=== PATIENT | female | born 1955 | race Caucasian/White ===

== ENCOUNTER → 2016-05-30 | Outpatient (CLI) | payer BC, OTHER ==
[~2016-05-30] MED LIST: ASPI81TA85 PO; BIOTPOW20 PO; CO Q100C10 PO; HYDR25TAB PO; LISI10TA4 PO; MACR100C3 PO; MULT1TAB18 PO; OMEP40CA2 PO; OXYC-517 PO; TYLE650T35 PO
[2016-05-30 20:11] LABS: CALCIUM LEVEL 9.4 MG/DL (8.5-10.1); CREATININE FOR GFR 1.06 MG/DL (0.55-1.02); GLOMERULAR FILTRATION RATE 56.5 (>51); POTASSIUM SERUM 3.5 MEQ/L (3.5-5.1)
[2016-05-30 20:17] LABS: MEAN CORPUSCULAR HEMOGLOBIN 32.7 pg (27.0-33.0); MEAN CORPUSCULAR HGB CONC 34.8 g/dl (32.0-36.5); RED CELL DISTRIBUTION WIDTH 12.3 % (11.5-14.5); WHITE BLOOD COUNT 9.4 K/mm3 (4.0-10.0)
== END ==
LOC: M ADAMS 18:17
PROVIDERS: ATTEND Nurse Practitioner Women's Health
DX: C64.1 Malignant neoplasm of right kidney, except renal pelvis (principal)

== ENCOUNTER → 2016-06-17 | Outpatient (REF) | payer BC, OTHER | LOC: M SFHCADAM 08:54 | PROVIDERS: ATTEND Physician Assistant | DX: E78.4 Other hyperlipidemia (principal); M17.9 Osteoarthritis of knee, unspecified ==

== ENCOUNTER → 2016-07-28 | Outpatient (REF) | payer BC, OTHER | LOC: M SFHCWAGY 15:50 | PROVIDERS: ATTEND Nurse Practitioner Women's Health | DX: Z12.4 Encounter for screening for malignant neoplasm of cervix (principal) ==

== ENCOUNTER → 2016-07-28 | Outpatient (CLI) | payer BC, OTHER ==
--- NOTE | 2016-07-28 16:41 | REPMRS ---
Patient History The patient states she had a clinical breast exam in 07/2016. Patient is postmenopausal and has history of other cancer at age 60. Family history of prostate cancer in brother at age 50 or over. Digital Woman Screen Mammo: July 28, 2016 - Exam #: [id number] Bilateral CC and MLO view(s) were taken. Technologist: Sheba Armas, Technologist Prior study comparison: September 12, 2014, digital woman screen mammo performed at [facility]. December 13, 2012, digital woman screen mammo performed at [facility]. December 07, 2010, bilateral bilat screen digital mammo performed at [facility]. FINDINGS: There are scattered fibroglandular densities. There has been no change in the appearance of the mammogram from the prior studies. There is a mild amount of scattered fibroglandular density which is fairly symmetric. There is no interval development of dominant mass, architectural distortion, or clustered microcalcification suggestive of malignancy. ASSESSMENT: BI-RADS/ACR category 1 mammogram. Negative. Recommendation Routine screening mammogram in 1 year (for women over age 40). This mammogram was interpreted with the aid of an FDA-approved computer-aided dectection system. Electronically Signed By: Jonathan Santos MD 07/28/16 [id number]
== END ==
LOC: M WHC 15:20
PROVIDERS: ATTEND Nurse Practitioner Women's Health
DX: Z12.31 Encounter for screening mammogram for malignant neoplasm of breast (principal)

== ENCOUNTER → 2016-09-13 | Outpatient (REF) | payer BC ==
[~2016-09-13] MED LIST changes: -MACR100C3 PO; +MACR100C43 PO
[2016-09-13 20:14] LABS: CALCIUM LEVEL 9.7 MG/DL (8.8-10.2); CREATININE FOR GFR 1.21 MG/DL (0.55-1.02); GLOMERULAR FILTRATION RATE 48.3 (>45); POTASSIUM SERUM 3.7 MEQ/L (3.5-5.1)
[2016-09-13 20:20] LABS: MEAN CORPUSCULAR HEMOGLOBIN 33.1 pg (27.0-33.0); MEAN CORPUSCULAR HGB CONC 33.9 g/dl (32.0-36.5); MEAN CORPUSCULAR VOLUME 97.6 fl (80.0-96.0); RED CELL DISTRIBUTION WIDTH 12.4 % (11.5-14.5); WHITE BLOOD COUNT 10.5 K/mm3 (4.0-10.0)
== END ==
LOC: M LABDRWAD 08:56
PROVIDERS: ATTEND Urology
DX: Z90.5 Acquired absence of kidney (principal)

== ENCOUNTER → 2016-12-21 | Outpatient (CLI) | payer BC, OTHER ==
[2016-12-21 21:21] LABS: MEAN CORPUSCULAR HGB CONC 33.4 g/dl (32.0-36.5); MEAN CORPUSCULAR VOLUME 95.7 fl (80.0-96.0); RED CELL DISTRIBUTION WIDTH 12.7 % (11.5-14.5); WHITE BLOOD COUNT 10.1 10^3/uL (4.0-10.0)
[2016-12-21 21:23] LABS: CALCIUM LEVEL 9.5 MG/DL (8.8-10.2); CREATININE FOR GFR 1.35 MG/DL (0.55-1.02); GLOMERULAR FILTRATION RATE 42.6 (>45); POTASSIUM SERUM 4.1 MEQ/L (3.5-5.1)
--- NOTE | 2016-12-22 03:31 | REP ---
Clinical: Renal neoplasm. Technique: PA and lateral. Comparison: 01/12/2016. Findings: A diffuse fine nodular interstitial pattern is noted throughout the lung salinas and remains stable. Findings are nonspecific and may reflect sequelae of prior granulomas disease as well as malignancy. No focal consolidation, effusion, or pneumothorax. Mediastinum and cardiac silhouette are within normal limits and stable. Skeletal structures demonstrate age-related changes to the thoracic spine and shoulders. Impression: 1. Stable diffuse fine nodular pattern throughout the lung salinas may reflect prior granulomas disease or sequelae of prior malignancy. 2. No obvious acute cardiopulmonary process. Signed by Manny Batista MD 12/22/2016 03:23 A
== END ==
LOC: M ADAMS 17:32
PROVIDERS: ATTEND Urology
DX: Z90.5 Acquired absence of kidney (principal); C64.1 Malignant neoplasm of right kidney, except renal pelvis

== ENCOUNTER → 2016-12-23 | Outpatient (CLI) | payer BC, OTHER ==
[~2016-12-23] MED LIST changes: +ISOVUE-370 76% 100ML VIAL (Q9967) As Ordered ONE
--- NOTE | 2016-12-25 10:41 | REP ---
CT of the abdomen pelvis multiphase imaging without and with IV contrast. There is no bowel contrast. Comparison is 12/30/2015. The comparison study. The patient had a large right renal mass. There has been interim right nephrectomy. The visualized lower lung salinas are unremarkable. The hepatic parenchyma is homogeneous on all phases. The gallbladder, pancreas and spleen are normal size, homogeneous and unremarkable. There is 3.5 cm right adrenal mass demonstrating enhancement after IV contrast, not present previously, compatible with adrenal metastasis. There is no evidence of tumor recurrence in the right renal fossa otherwise. The left adrenal left kidney are unremarkable. The abdominal aorta is unremarkable except for calcified atheroma. There is no retroperitoneal adenopathy. The bowel and mesentery are unremarkable. There is no ascites. Pelvis: There is no ascites or adenopathy. The uterus, adnexa and urinary bladder are unremarkable. The pelvic bowel loops are unremarkable. There are no lytic, blastic or destructive skeletal changes. There is bilateral L5 spondylolysis with grade 1 spondylolisthesis. There is multilevel degenerative disc disease in the lumbar spine. Impression: There is a new right adrenal mass measuring 3.5 cm greatest diameter demonstrating enhancement with IV contrast, compatible with right adrenal metastasis. There is no other evidence of tumor recurrence in the right renal fossa. Otherwise, essentially negative CT of the abdomen and pelvis. Signed by Joseph Haas MD 12/25/2016 10:33 A
== END ==
LOC: M RAD 16:55
PROVIDERS: ATTEND Urology
DX: E27.8 Other specified disorders of adrenal gland (principal); C64.1 Malignant neoplasm of right kidney, except renal pelvis; Z90.5 Acquired absence of kidney
CPT/HCPCS: 74178; Q9967

== ENCOUNTER → 2016-12-30 | Outpatient (CLI) | payer BC, OTHER ==
[~2016-12-30] MED LIST changes: -ISOVUE-370 76% 100ML VIAL (Q9967) As Ordered ONE; +PRAV10TA4 PO; +VITA100067 PO
[2016-12-30 09:34] LABS: ALBUMIN/GLOBULIN RATIO 1.05 (1.00-1.93); BILIRUBIN,TOTAL 0.4 MG/DL (0.2-1.0); CALCIUM LEVEL 9.9 MG/DL (8.8-10.2); CREATININE FOR GFR 1.09 MG/DL (0.55-1.02); FREE T4 1.18 NG/DL (0.76-1.46); GLOMERULAR FILTRATION RATE 54.5 (>45); POTASSIUM SERUM 4.1 MEQ/L (3.5-5.1); TOTAL PROTEIN 7.8 GM/DL (6.4-8.2)
== END ==
LOC: M WUC 08:06
PROVIDERS: ATTEND Physician Assistant
DX: I10 Essential (primary) hypertension (principal); E78.4 Other hyperlipidemia

== ENCOUNTER → 2017-01-12 | Outpatient (CLI) | payer BC, OTHER ==
[2017-01-12 10:40] LABS: MEAN CORPUSCULAR HEMOGLOBIN 32.1 pg (27.0-33.0); MEAN CORPUSCULAR HGB CONC 33.5 g/dl (32.0-36.5); MEAN CORPUSCULAR VOLUME 95.9 fl (80.0-96.0); PLATELET COUNT, AUTOMATED 314 10^3/uL (150-450); RED CELL DISTRIBUTION WIDTH 12.6 % (11.5-14.5); WHITE BLOOD COUNT 7.8 10^3/uL (4.0-10.0)
[2017-01-12 10:51] LABS: INR 1.02
[2017-01-12 11:15] LABS: CALCIUM LEVEL 10.3 MG/DL (8.8-10.2); CREATININE FOR GFR 1.15 MG/DL (0.55-1.02); GLOMERULAR FILTRATION RATE 51.2 (>45); POTASSIUM SERUM 4.2 MEQ/L (3.5-5.1)
== END ==
LOC: M WUC 08:05
PROVIDERS: ATTEND Nurse Practitioner Women's Health
DX: Z01.818 Encounter for other preprocedural examination (principal); E27.9 Disorder of adrenal gland, unspecified

== ENCOUNTER → 2017-01-16 | Outpatient (CLI) | payer BC, OTHER ==
--- NOTE | 2017-01-19 00:11 | ECGEPIP ---
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
== END ==
LOC: M EKG 16:24
PROVIDERS: ATTEND Nurse Practitioner Women's Health
DX: E27.9 Disorder of adrenal gland, unspecified (principal)

== ENCOUNTER → 2017-01-16 | Outpatient (CLI) | payer BC, OTHER ==
[~2017-01-16] MED LIST changes: +CIPR500T3 PO; +ISOVUE-370 76% 100ML VIAL (Q9967) As Ordered ONE; +MELA5TAB20 PO
--- NOTE | 2017-01-16 19:33 | REP ---
CT CHEST WITH CONTRAST: 01/16/2017. 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 Please evaluate lung salinas. Nodules seen on chest x-ray. Comparison: CT abdomen with lung base included 12/23/2016, 12/30/2015, chest x-ray 12/21/2016. Findings: The patient received 75 ml as Isovue 370 scanning through the chest with coronal and sagittal reconstructions. The axial images and coronal thick slab MIP reformatting in bone window settings show innumerable tiny nodules, many of them calcified others not and consistent mostly with granulomatous disease. I would note that on the prior two CTs in December 2015 as well as the prior abdominal CT last month. There were multiple tiny calcified granulomas scattered in both lower lung zones that are included in the field of view. Almost all of the small nodules are calcified. There are a few tiny nodules that are not. There is an 8 mm plaque-like nodule in the mid axillary line, left lower lobe lateral basal segment on image 87 which is noncalcified and is unchanged since the prior CT abdomen in 2015. Some minor dependent atelectatic changes along the posterior medial aspect of the mid and lower lung zones. I do not see any other significant lung findings. No effusion, calcified pleural plaque or pleural-based mass or pneumothorax. Heart is not enlarged and no pericardial thickening or effusion. There is no pathologic sized mediastinal or hilar adenopathy. Calcifications aortic arch and descending aorta but no aneurysm or dissection. Esophagus grossly unremarkable. The main right and left pulmonary arteries and the mediastinum are without filling defects. Bone windows show the sternum, manubrium, clavicles and visualized portion of the humeral heads intact. AC joints are narrowed bilaterally. The scapulae and ribs are without fracture or destructive lesion. Spine shows no compression fracture or destructive lesion, its posterior elements and rib articulations intact. The upper abdomen shows the right adrenal mass of 3.5 centimeters with low-density central zone and enhancing periphery in the upper pole of the left kidney visualized portions of liver and pancreas are unremarkable. The gallbladder showed no calcified stone or mass and the spleen was intact. Bowel loops intact. Impression: 1. 1. There is an 8 millimeter plaque-like nodule along the pleural surface lateral basal segment left lower lobe in the mid axillary line, this is uncalcified and unchanged from prior CT abdomen 1 year ago showing the lung bases. 2. Innumerable calcified tiny nodules scattered throughout the lungs consistent with old granulomatous disease. There are very few there are noncalcified. Given the preponderance of findings granulomatous disease is noted. 3. 3.5 cm right adrenal metastatic lesion, new since the right nephrectomy last year and the normal appearance of the right adrenal gland at the time of presentation per renal cell carcinoma in December 24, 2015. 4. No mediastinal or hilar mass or other acute finding. Signed by Yvon Dennis MD 01/16/2017 08:04 P
== END ==
LOC: M RAD 17:00
PROVIDERS: ATTEND Urology
DX: R91.8 Other nonspecific abnormal finding of lung field (principal); C64.9 Malignant neoplasm of unspecified kidney, except renal pelvis; C79.70 Secondary malignant neoplasm of unspecified adrenal gland
CPT/HCPCS: 71260; Q9967

== ENCOUNTER → 2017-01-17 | Outpatient (CLI) | payer BC, OTHER ==
[~2017-01-17] MED LIST changes: -CIPR500T3 PO; -ISOVUE-370 76% 100ML VIAL (Q9967) As Ordered ONE; -MELA5TAB20 PO
== END ==
LOC: M SMT 09:15
PROVIDERS: ATTEND Urology
DX: E27.9 Disorder of adrenal gland, unspecified (principal)

== ENCOUNTER 2017-01-31 06:40 | Inpatient (IN) | payer BC, OTHER ==
[~2017-01-31] VITALS: Ht 167.6 cm; Wt 83.5 kg
[2017-01-31] MEDS ORDERED: LIDOCAINE 1% MDV 20ML VIAL SQ PRN (07:00)
[2017-01-31] MEDS ORDERED: LR 1,000 ML IV ONE (07:00)
[2017-01-31] MEDS ORDERED: EMLA CREAM 5GM (LIDOCAINE/PRILOCAINE) As Ordered ONE (07:16)
[2017-01-31] MEDS ORDERED: MELA5TAB20 PO (07:30)
[2017-01-31] MEDS ORDERED: METOCLOPRAMIDE INJ 10MG/2ML VIAL (J2765) As Ordered ONE (08:00)
[2017-01-31] MEDS ORDERED: ROCURONIUM BROMIDE 50 MG/5 ML VIAL As Ordered ONE ×2 (08:00→09:58)
[2017-01-31] MEDS ORDERED: PROPOFOL 200 MG/20 ML VIAL As Ordered ONE (08:00)
[2017-01-31] MEDS ORDERED: ONDANSETRON 4MG/2ML VIAL (J2405) As Ordered ONE (08:00)
[2017-01-31] MEDS ORDERED: LIDOCAINE 2% INJ 100 MG/5 ML SDV (FOR ANES.) As Ordered ONE (08:00)
[2017-01-31] MEDS ORDERED: fentaNYL 250 MCG/5 ML INJECTION (J3010) As Ordered ONE (08:01)
[2017-01-31] MEDS ORDERED: MIDAZOLAM INJ 2 MG/2 ML VIAL (J2250) As Ordered ONE (08:01)
[2017-01-31] MEDS ORDERED: PHENYLephrine HCL 500 MCG/5 ML (100MCG/ML) SYRINGE (J2370) As Ordered ONE (10:42)
[2017-01-31] MEDS ORDERED: SUGAMMADEX SODIUM 500 MG/5 ML VIAL (BRIDION) As Ordered ONE (12:08)
[2017-01-31] MEDS ORDERED: fentaNYL 100 MCG/2 ML INJECTION (J3010) As Ordered ONE (13:11)
[2017-01-31] MEDS ORDERED: ONDANSETRON 4MG/2ML VIAL (J2405) IV PRN ×2 (13:15→13:30)
[2017-01-31] MEDS ORDERED: MORPHINE 4 MG/ML 1ML SYRINGE IV PRN (13:15)
[2017-01-31] MEDS: fentaNYL 100 MCG/2 ML INJECTION (J3010) IV PRN ×4 (13:20→13:53)
[2017-01-31 13:23] LABS: MEAN CORPUSCULAR HEMOGLOBIN 32.1 pg (27.0-33.0); MEAN CORPUSCULAR HGB CONC 33.4 g/dl (32.0-36.5); MEAN CORPUSCULAR VOLUME 96.2 fl (80.0-96.0); PLATELET COUNT, AUTOMATED 267 10^3/uL (150-450); RED CELL DISTRIBUTION WIDTH 12.8 % (11.5-14.5); WHITE BLOOD COUNT 14.6 10^3/uL (4.0-10.0)
[2017-01-31] MEDS ORDERED: MORPHINE 10 MG/ML 1ML VIAL IV PRN (13:30)
[2017-01-31] MEDS ORDERED: LR 1,000 ML IV SCH (13:30)
[2017-01-31 13:45] LABS: CALCIUM LEVEL 9.1 MG/DL (8.8-10.2); CREATININE FOR GFR 1.18 MG/DL (0.55-1.02); GLOMERULAR FILTRATION RATE 49.7 (>45); POTASSIUM SERUM 3.9 MEQ/L (3.5-5.1)
[2017-01-31 15:00] VITALS: BP 141/91
[2017-01-31 15:30] VITALS: BP 112/63
[2017-01-31] MEDS: ACETAMINOPHEN 650MG ER TAB (TYLENOL ARTHRITIS) PO SCH ×2 (16:05→21:17)
[2017-01-31] MEDS: oxyCODONE 5MG TAB PO PRN ×2 (16:06→23:15)
[2017-01-31] MEDS: KCL 20MEQ IN D5/0.45NS 1000ML 1,000 ML IV SCH ×2 (16:06→23:15)
[2017-01-31 16:30] VITALS: BP 143/60
[2017-01-31 17:30] VITALS: BP 135/72
[2017-01-31] MEDS: CIPROFLOXACIN 500 MG TAB PO SCH (18:23)
[2017-01-31 18:30] VITALS: BP 132/79
[2017-01-31 19:30] VITALS: BP 141/80
[2017-01-31] MEDS: PANTOPRAZOLE 40MG INJ (PROTONIX) (C9113) IV SCH (20:04)
[2017-01-31] MEDS: PRAVASTATIN 10 MG TAB PO SCH (20:05)
--- NOTE | 2017-01-31 21:57 | RO ---
DATE OF PROCEDURE: 01/31/2017 PREPROCEDURE DIAGNOSIS: Right adrenal neoplasm. POSTPROCEDURE DIAGNOSIS: Right adrenal neoplasm. PROCEDURE: Robotic-assisted right adrenalectomy. SURGEON: Dr. Karlo Hamlin BED MACHINE OPERATOR: Leann Ventura ANESTHESIA: General. COMPLICATIONS: None. ESTIMATED BLOOD LOSS: 100 mL. HISTORY OF THE PRESENT ILLNESS: A 61-year-old female patient with a history of a right renal cell carcinoma. She had an open right nephrectomy. At followup one year and a half, we found a right renal neoplasm which enhances. For this reason, she has consented for a right robotic-assisted adrenalectomy. She has consented for this procedure. We are doing the procedure today on 01/31/2017. DESCRIPTION OF PROCEDURE: In a patient in decubito lateral position with the right side up and the left side down, with the table flexed at the level of the waist and the patient secured with straps and a beanbag, we secured the points of pressures with foams. We placed an orogastric tube to drain the gastric content and a Goldsmith catheter #[id number]-[id number] with a 10 mL balloon to drain the bladder. We then proceeded to prep and drape the area of concern, which included the entire abdomen and right flank. We proceeded to actually do a transverse incision about 2 cm in length in the midclavicular line, supraumbilically for about 2 cm above the umbilicus. Through this incision, we opened the peritoneal cavity, introduced the 12 mm balloon trocar, inflated the balloon trocar to 40 mL, insufflated the abdomen with CO2 at a maximum pressure of 15 at high flow. We then proceeded to actually under direct vision place the other trocars. We placed a 5 mm VersaStep trocar in the epigastric area in the midline, and then we placed a 12 mm VersaStep on top of this since we needed a fine retractor for the liver. We then proceeded to place an 8 mm metallic trocar subcostally in the level of the midclavicular line and then in the right iliac fossa at the level of the midclavicular line, 10 cm away from the optic port, we placed another 8 mm metallic trocar. Between this one and the optic port in the midline, infraumbilically, we placed a 12 mm VersaStep, and we placed a third arm on the anterior axillary line, 2 cm away from the anterior iliac crest, along 8 mm metallic trocar. We then docked the robot on the left side, lower quadrant. Right lower quadrant of the abdomen, we placed a ProGrasp for the third arm, a monopolar scissors. On the right side, we placed bipolar PK. We started by dissecting all the adhesions attached to the omentum, attached to the anterior abdominal wall at the level of the subcostal incision. Once this was done, we dissected the line of Toldt and retracted the colon toward the midline. We then identified the duodenum and dissected away from the vena cava. We identified the vena cava and adrenal lesion. With a fine-shaped retractor, we retracted the liver from the posterior retroperitoneum and then we dissected the adrenal vein. There were two adrenal veins, were Hem-o-loked times two and cut in the middle. With the monopolar scissors, we dissected the adrenal. With bipolar PK, we secured the tiny arterials toward the adrenal. Once the adrenal was completely dissected, we placed it into a 10 mm Endo Catch bag. We secured hemostasis and placed Jocelyn. We then proceeded to actually take all the trocars out, the fine retractor also, deflate the abdomen and see if there were any bleeding vessels. There were no bleeding vessels. At that moment in time, we took out the instruments, to undock the robot, we took all the trocars out and extracted the specimen in the Endo Catch bag through the optic port incision. We then closed the optic port incision in two layers with #2-0 Vicryl in separate stitches times six in two layers, #0 Vicryl on UR-6 in separate layers, six stitches in the first layer, six stitches in the second layer. We then closed each incision site with #4-0 Monocryl subcuticulars. We then placed Mastisol, Steri-Strips, Telfa and Tegaderm on top of each incision. We did not leave a drain. PLAN: The patient will pass to recovery, then to the floor. Once she is tolerating a regular diet, she will be discharged home. There were no complications during surgery. The lesion was sent as a right adrenal neoplasm.
[2017-02-01] VITALS: BP 112/61
[2017-02-01] MEDS: CIPROFLOXACIN 500 MG TAB PO SCH ×2 (05:12→18:41)
[2017-02-01] MEDS: ACETAMINOPHEN 650MG ER TAB (TYLENOL ARTHRITIS) PO SCH ×3 (05:12→20:12)
[2017-02-01 06:00] VITALS: BP 121/68
[2017-02-01] MEDS: oxyCODONE 5MG TAB PO PRN ×3 (06:00→20:13)
[2017-02-01 07:09] LABS: ANION GAP 7 MEQ/L (8-16); BLOOD UREA NITROGEN 11 MG/DL (7-18); CALCIUM LEVEL 8.5 MG/DL (8.8-10.2); CARBON DIOXIDE LEVEL 27 MEQ/L (21-32); CHLORIDE LEVEL 105 MEQ/L (98-107); CREATININE FOR GFR 0.92 MG/DL (0.55-1.02); GLOMERULAR FILTRATION RATE > 60.0 (>45); GLUCOSE, FASTING 122 MG/DL (80-110); POTASSIUM SERUM 3.6 MEQ/L (3.5-5.1); SODIUM LEVEL 139 MEQ/L (136-145)
[2017-02-01 07:15] LABS: MEAN CORPUSCULAR HEMOGLOBIN 32.4 pg (27.0-33.0); MEAN CORPUSCULAR HGB CONC 33.8 g/dl (32.0-36.5); MEAN CORPUSCULAR VOLUME 95.9 fl (80.0-96.0); PLATELET COUNT, AUTOMATED 248 10^3/uL (150-450); RED CELL DISTRIBUTION WIDTH 12.7 % (11.5-14.5); WHITE BLOOD COUNT 9.9 10^3/uL (4.0-10.0)
[2017-02-01] MEDS: KCL 20MEQ IN D5/0.45NS 1000ML 1,000 ML IV SCH (08:46)
[2017-02-01] MEDS: LISINOPRIL 10 MG TAB PO SCH (08:46)
[2017-02-01] MEDS: hydroCHLOROthiazide 25 MG TAB PO SCH (08:46)
[2017-02-01 10:00] VITALS: BP_SYST 113; BP_SYST 126; BP_DIAS 57; BP_DIAS 85
[2017-02-01 14:00] VITALS: BP 106/63
[2017-02-01] MEDS: PANTOPRAZOLE 40MG INJ (PROTONIX) (C9113) IV SCH (20:12)
[2017-02-01] MEDS: PRAVASTATIN 10 MG TAB PO SCH (20:12)
[2017-02-01 22:00] VITALS: BP 128/64
[2017-02-02] MEDS: oxyCODONE 5MG TAB PO PRN ×2 (02:48→11:42)
[2017-02-02 06:00] VITALS: BP 126/77
[2017-02-02] MEDS: CIPROFLOXACIN 500 MG TAB PO SCH (06:19)
[2017-02-02] MEDS: ACETAMINOPHEN 650MG ER TAB (TYLENOL ARTHRITIS) PO SCH ×2 (06:19→14:50)
[2017-02-02 06:59] LABS: MEAN CORPUSCULAR HEMOGLOBIN 32.1 pg (27.0-33.0); MEAN CORPUSCULAR HGB CONC 33.3 g/dl (32.0-36.5); MEAN CORPUSCULAR VOLUME 96.4 fl (80.0-96.0); PLATELET COUNT, AUTOMATED 252 10^3/uL (150-450); RED CELL DISTRIBUTION WIDTH 12.5 % (11.5-14.5); WHITE BLOOD COUNT 11.4 10^3/uL (4.0-10.0)
[2017-02-02 07:18] LABS: CALCIUM LEVEL 8.8 MG/DL (8.8-10.2); CREATININE FOR GFR 1.01 MG/DL (0.55-1.02); GLOMERULAR FILTRATION RATE 59.5 (>45); POTASSIUM SERUM 3.7 MEQ/L (3.5-5.1)
[2017-02-02 08:51] VITALS: BP 126/77
[2017-02-02] MEDS: LISINOPRIL 10 MG TAB PO SCH (08:51)
[2017-02-02] MEDS: hydroCHLOROthiazide 25 MG TAB PO SCH (08:51)
[2017-02-02] MEDS ORDERED: CIPR500T3 PO (16:31)
[2017-02-02] MEDS ORDERED: TYLE650T35 PO (16:31)
--- NOTE | 2017-02-02 21:17 | DSES ---
DATE OF ADMISSION: 01/31/2017 DATE OF DISCHARGE: 02/02/2017 DATE OF SURGERY: 01/31/2017 ADMISSION DIAGNOSIS: Right adrenal neoplasm. DISCHARGE DIAGNOSIS: Right adrenal neoplasm. SURGERY PERFORMED: Robotic-assisted right adrenalectomy. SURGEON: Karlo Hamlin MD ADMITTING ATTENDING: Karlo Hamlin MD DISCHARGE ATTENDING: Karlo Hamlin MD COMPLICATIONS: None. HISTORY OF PRESENT ILLNESS: This is a 61-year-old female patient with a history of renal cell carcinoma of the right kidney. She had a robotic-assisted radical nephrectomy done one and half years ago. She had a CT scan that showed an adrenal neoplasm of about 3 cm in diameter. For this reason, she consented for a robotic-assisted right adrenalectomy. This procedure was carried out on 01/31/2017. After this procedure, she was admitted to the hospital. HOSPITALIZATION COURSE: The patient did very well and by postoperative day #1, she was putting out adequate amount of urine, clear, she was tolerating a regular diet and, for this reason, we discontinued the Goldsmith catheter. By postoperative day #2, she was tolerated a regular diet, ambulating very well, she was voiding very well without any problems, clear urine, her pain was controlled with by mouth medication. For this reason, she requested to go home and we agreed upon this. She will go home with ciprofloxacin 500 mg one tablet by mouth twice a day for 10 days, Tylenol 650 mg extended release one tablet by mouth every 8 hours as needed for pain. Increase water intake to 2 liters a day. Ambulate three times a day. No heavy weightlifting above [address] after 2 weeks. She will followup with [facility] in 2 weeks.
== END 2017-02-02 16:55 | disposition home or self-care (01) | DRG 401 ==
LOC: M OR 06:40 → M MS5PR 14:55
PROVIDERS: ADMIT Urology; ATTEND Urology
PROC: 8E0W4CZ Robotic Assisted Procedure of Trunk Region, Percutaneous Endoscopic Approach (ICD-10-PCS; 2017-01-31)
PROC: 0GB34ZZ Excision of Right Adrenal Gland, Percutaneous Endoscopic Approach (ICD-10-PCS; principal; 2017-01-31 08:30)
DX: C79.71 Secondary malignant neoplasm of right adrenal gland (principal); Q78.0 Osteogenesis imperfecta; I10 Essential (primary) hypertension; E78.4 Other hyperlipidemia; J30.2 Other seasonal allergic rhinitis; M17.11 Unilateral primary osteoarthritis, right knee; R91.1 Solitary pulmonary nodule; K21.9 Gastro-esophageal reflux disease without esophagitis; Z85.528 Personal history of other malignant neoplasm of kidney; Z87.891 Personal history of nicotine dependence; Z90.5 Acquired absence of kidney; Z88.2 Allergy status to sulfonamides; Z91.013 Allergy to seafood; Z79.899 Other long term (current) drug therapy

== ENCOUNTER → 2017-03-09 | Outpatient (REF) | payer BC, OTHER ==
[2017-03-09 19:09] LABS: HEMATOCRIT 44.9 % (36.0-47.0); MEAN CORPUSCULAR HEMOGLOBIN 31.7 pg (27.0-33.0); MEAN CORPUSCULAR HGB CONC 33.4 g/dl (32.0-36.5); MEAN CORPUSCULAR VOLUME 94.9 fl (80.0-96.0); PLATELET COUNT, AUTOMATED 323 10^3/uL (150-450); RED BLOOD COUNT 4.73 10^6/uL (4.00-5.40); RED CELL DISTRIBUTION WIDTH 12.7 % (11.5-14.5); WHITE BLOOD COUNT 10.5 10^3/uL (4.0-10.0)
[2017-03-09 19:28] LABS: APPEARANCE, URINE CLEAR (CLEAR); BACTERIA, URINE AUTO NEGATIVE (NEGATIVE); BILIRUBIN, URINE AUTO NEGATIVE (NEGATIVE); BLOOD, URINE BLOOD 2+ (NEGATIVE); COLOR, URINE YELLOW (YELLOW); GLUCOSE, URINE (UA) AUTO NEGATIVE (NEGATIVE); KETONE, URINE AUTO NEGATIVE (NEGATIVE); LEUKOCYTE ESTERASE, URINE AUTO NEGATIVE (NEGATIVE); NITRITE, URINE AUTO NEGATIVE (NEGATIVE); PROTEIN, URINE AUTO NEGATIVE (NEGATIVE); RBC, URINE AUTO 7 /HPF (0-3); SPECIFIC GRAVITY URINE AUTO 1.014 (1.002-1.035); SQUAMOUS EPITHELIAL CELL UR AU 0 /HPF (0-6); UROBILINOGEN, URINE AUTO 0.2 mg/dL (0.0-2.0); WBC, URINE AUTO 0 /HPF (0-3)
[2017-03-09 19:48] LABS: ANION GAP 8 MEQ/L (8-16); BLOOD UREA NITROGEN 29 MG/DL (7-18); CALCIUM LEVEL 10.2 MG/DL (8.8-10.2); CARBON DIOXIDE LEVEL 30 MEQ/L (21-32); CHLORIDE LEVEL 99 MEQ/L (98-107); CREATININE FOR GFR 1.29 MG/DL (0.55-1.02); GLOMERULAR FILTRATION RATE 44.9 (>45); GLUCOSE, FASTING 84 MG/DL (80-110); POTASSIUM SERUM 4.2 MEQ/L (3.5-5.1); SODIUM LEVEL 137 MEQ/L (136-145)
== END ==
LOC: M SFHCADAM 14:35
DX: C64.1 Malignant neoplasm of right kidney, except renal pelvis (principal)
CPT/HCPCS: 80048

== ENCOUNTER → 2017-05-12 | Outpatient (REF) | payer BC, OTHER ==
[2017-05-12 19:39] LABS: HEMATOCRIT 46.3 % (36.0-47.0); HEMOGLOBIN 15.5 g/dl (12.0-16.0); MEAN CORPUSCULAR HEMOGLOBIN 31.4 pg (27.0-33.0); MEAN CORPUSCULAR HGB CONC 33.5 g/dl (32.0-36.5); MEAN CORPUSCULAR VOLUME 93.7 fl (80.0-96.0); PLATELET COUNT, AUTOMATED 379 10^3/uL (150-450); RED BLOOD COUNT 4.94 10^6/uL (4.00-5.40); RED CELL DISTRIBUTION WIDTH 13.2 % (11.5-14.5); WHITE BLOOD COUNT 12.1 10^3/uL (4.0-10.0)
[2017-05-12 20:00] LABS: ALBUMIN 4.1 GM/DL (3.2-5.2); ALKALINE PHOSPHATASE 102 U/L (45-117); ALT/SGPT 21 U/L (12-78); ANION GAP 10 MEQ/L (8-16); AST/SGOT 12 U/L (7-37); BILIRUBIN,TOTAL 0.3 MG/DL (0.2-1.0); BLOOD UREA NITROGEN 27 MG/DL (7-18); CALCIUM LEVEL 9.8 MG/DL (8.8-10.2); CARBON DIOXIDE LEVEL 29 MEQ/L (21-32); CHLORIDE LEVEL 99 MEQ/L (98-107); CREATININE FOR GFR 1.56 MG/DL (0.55-1.30); GLUCOSE, FASTING 137 MG/DL (70-100); POTASSIUM SERUM 4.2 MEQ/L (3.5-5.1); SODIUM LEVEL 138 MEQ/L (136-145); TOTAL PROTEIN 8.2 GM/DL (6.4-8.2); URIC ACID 9.6 MG/DL (2.6-6.0)
== END ==
LOC: M SFHCADAM 15:04
DX: M10.471 Other secondary gout, right ankle and foot (principal); I12.9 Hypertensive chronic kidney disease with stage 1 through stage 4 chronic kidney disease, or unspecified chronic kidney disease; N18.3 Chronic kidney disease, stage 3 (moderate)
CPT/HCPCS: 84550

== ENCOUNTER → 2017-05-22 | Outpatient (REF) | payer BC, OTHER ==
[2017-05-22 20:04] LABS: BASO # 0.1 10^3/uL (0.0-0.2); BASO % 0.9 % (0.0-1.0); EOS # 0.3 10^3/uL (0.0-0.50); EOS % 2.8 % (0.0-3.0); HEMATOCRIT 46.3 % (36.0-47.0); HEMOGLOBIN 15.3 g/dl (12.0-16.0); IMMATURE GRANULOCYTE % 0.4 % (0-3.0); LYMPH # 2.5 10^3/uL (1.5-4.5); LYMPH % 24.6 % (24.0-44.0); MEAN CORPUSCULAR HEMOGLOBIN 31.5 pg (27.0-33.0); MEAN CORPUSCULAR VOLUME 95.3 fl (80.0-96.0); MONO # 1.1 10^3/uL (0.0-0.8); MONO % 10.9 % (0.0-5.0); NEUTROPHILS # 6.1 10^3/uL (1.8-7.7); NEUTROPHILS % 60.4 % (36.0-66.0); PLATELET COUNT, AUTOMATED 291 10^3/uL (150-450); RED BLOOD COUNT 4.86 10^6/uL (4.00-5.40); RED CELL DISTRIBUTION WIDTH 13.7 % (11.5-14.5); WHITE BLOOD COUNT 10.1 10^3/uL (4.0-10.0)
[2017-05-22 20:10] LABS: ALBUMIN 3.9 GM/DL (3.2-5.2); ALBUMIN/GLOBULIN RATIO 1.05 (1.00-1.93); ALKALINE PHOSPHATASE 91 U/L (45-117); ALT/SGPT 23 U/L (12-78); ANION GAP 9 MEQ/L (8-16); AST/SGOT 15 U/L (7-37); BILIRUBIN,TOTAL 0.3 MG/DL (0.2-1.0); BLOOD UREA NITROGEN 20 MG/DL (7-18); CARBON DIOXIDE LEVEL 28 MEQ/L (21-32); CHLORIDE LEVEL 103 MEQ/L (98-107); CREATININE FOR GFR 1.24 MG/DL (0.55-1.30); GLUCOSE, FASTING 90 MG/DL (70-100); POTASSIUM SERUM 4.1 MEQ/L (3.5-5.1); SODIUM LEVEL 140 MEQ/L (136-145); TOTAL PROTEIN 7.6 GM/DL (6.4-8.2)
== END ==
LOC: M SFHCADAM 17:21
DX: N18.3 Chronic kidney disease, stage 3 (moderate) (principal)
CPT/HCPCS: 80053

== ENCOUNTER → 2017-06-16 | Outpatient (CLI) | payer BC, OTHER ==
[~2017-06-16] MED LIST changes: -ASPI81TA85 PO; -BIOTPOW20 PO; -CO Q100C10 PO; -HYDR25TAB PO; +ISOVUE-370 76% 100ML VIAL (Q9967) As Ordered; -LISI10TA4 PO; -MACR100C43 PO; -MULT1TAB18 PO; -OMEP40CA2 PO; -OXYC-517 PO; -PRAV10TA4 PO; -TYLE650T35 PO; -VITA100067 PO
== END ==
LOC: M RAD 17:11
DX: D49.519 Neoplasm of unspecified behavior of unspecified kidney (principal); C79.71 Secondary malignant neoplasm of right adrenal gland; Z85.528 Personal history of other malignant neoplasm of kidney; Z90.5 Acquired absence of kidney
CPT/HCPCS: Q9967

== ENCOUNTER → 2017-08-07 | Outpatient (REF) | payer BC, OTHER ==
[2017-08-07 19:04] LABS: TOTAL PROTEIN,RANDOM URINE 7.1 MG/DL (0.0-12.0); URINE TOTAL PROTEIN 7.1 MG/DL (0-12)
[2017-08-07 19:10] LABS: TOTAL PROTEIN 7.4 GM/DL (6.4-8.2)
[2017-08-08 14:44] LABS: ALBUMIN 4.22 GM/DL (3.29-5.55); ALPHA-1-GLOBULIN % 4.1 % (2.9-4.9); ALPHA-2-GLOBULINS 0.79 GM/DL (0.42-0.99); ALPHA-2-GLOBULINS % 10.7 % (7.1-11.8); BETA-1-GLOBULINS 0.44 GM/DL (0.28-0.60); BETA-2-GLOBULINS 0.47 GM/DL (0.19-0.55); BETA-2-GLOBULINS % 6.4 % (3.2-6.5); GAMMA GLOBULIN % 15.8 % (11.1-18.8); GAMMA GLOBULINS 1.17 GM/DL (0.65-1.58)
[2017-08-10 00:06] LABS: FREE KAPPA LIGHT CHAINS SERUM 28.4 mg/L (3.3-19.4); FREE LAMBDA LIGHT CHAINS SERUM 25.4 mg/L (5.7-26.3); KAPPA/LAMBDA RATIO SERUM 1.12 (0.26-1.65)
[2017-08-10 13:42] LABS: URINE VOLUME RANDOM ML
[2017-08-10 13:43] LABS: UPEP INTERPRETATION NO M-SPIKE NOTED
== END ==
LOC: M LAB REF 17:07
DX: E83.52 Hypercalcemia (principal); Z85.528 Personal history of other malignant neoplasm of kidney
CPT/HCPCS: 84165

== ENCOUNTER → 2017-12-14 | Outpatient (REF) | payer BC, OTHER ==
[2017-12-14 20:19] LABS: HEMATOCRIT 43.8 % (36.0-47.0); HEMOGLOBIN 14.7 g/dl (12.0-15.5); MEAN CORPUSCULAR HGB CONC 33.6 g/dl (32.0-36.5); MEAN CORPUSCULAR VOLUME 95.2 fl (80.0-96.0); PLATELET COUNT, AUTOMATED 298 10^3/uL (150-450); RED CELL DISTRIBUTION WIDTH 12.4 % (11.5-14.5); WHITE BLOOD COUNT 7.8 10^3/uL (4.0-10.0)
[2017-12-14 20:22] LABS: APPEARANCE, URINE CLEAR (CLEAR); BACTERIA, URINE AUTO NEGATIVE (NEGATIVE); BILIRUBIN, URINE AUTO NEGATIVE (NEGATIVE); BLOOD, URINE BLOOD 1+ (NEGATIVE); COLOR, URINE YELLOW (YELLOW); GLUCOSE, URINE (UA) AUTO NEGATIVE (NEGATIVE); KETONE, URINE AUTO NEGATIVE (NEGATIVE); LEUKOCYTE ESTERASE, URINE AUTO NEGATIVE (NEGATIVE); MUCUS, URINE SMALL (NEGATIVE); NITRITE, URINE AUTO NEGATIVE (NEGATIVE); PROTEIN, URINE AUTO NEGATIVE (NEGATIVE); RBC, URINE AUTO 2 /HPF (0-3); SPECIFIC GRAVITY URINE AUTO 1.006 (1.002-1.035); SQUAMOUS EPITHELIAL CELL UR AU 0 /HPF (0-6); UROBILINOGEN, URINE AUTO 0.2 mg/dL (0.0-2.0); WBC, URINE AUTO 0 /HPF (0-3)
[2017-12-14 20:38] LABS: ANION GAP 11 MEQ/L (8-16); BLOOD UREA NITROGEN 19 MG/DL (7-18); CALCIUM LEVEL 9.6 MG/DL (8.8-10.2); CARBON DIOXIDE LEVEL 25 MEQ/L (21-32); CHLORIDE LEVEL 106 MEQ/L (98-107); CREATININE FOR GFR 1.33 MG/DL (0.55-1.30); GLOMERULAR FILTRATION RATE 43.2 (>45); GLUCOSE, FASTING 103 MG/DL (70-100); POTASSIUM SERUM 4.3 MEQ/L (3.5-5.1); SODIUM LEVEL 142 MEQ/L (136-145)
== END ==
LOC: M SFHCADAM 11:53
DX: Z85.528 Personal history of other malignant neoplasm of kidney (principal)
CPT/HCPCS: 80048

== ENCOUNTER → 2017-12-14 | Outpatient (CLI) | payer BC, OTHER | LOC: M ADAMS 11:55 | DX: Z85.828 Personal history of other malignant neoplasm of skin (principal); J84.10 Pulmonary fibrosis, unspecified | CPT/HCPCS: 71046 ==

== ENCOUNTER → 2017-12-20 | Outpatient (CLI) | payer BC, OTHER | LOC: M WHC 12:54 | DX: Z12.31 Encounter for screening mammogram for malignant neoplasm of breast (principal); Z78.0 Asymptomatic menopausal state; Z85.528 Personal history of other malignant neoplasm of kidney | CPT/HCPCS: 77067 ==

== ENCOUNTER → 2017-12-25 | Outpatient (CLI) | payer BC, OTHER | LOC: M RAD 09:20 | DX: Z85.528 Personal history of other malignant neoplasm of kidney (principal) | CPT/HCPCS: Q9967 ==

== ENCOUNTER → 2018-01-24 | Outpatient (REF) | payer BC, OTHER ==
[~2018-01-24] MED LIST changes: +ASPI81TA85 PO; +BIOTPOW20 PO; +CIPR500T3 PO; +CO Q100C10 PO; +HYDR25TAB PO; -ISOVUE-370 76% 100ML VIAL (Q9967) As Ordered; +LISI10TA4 PO; +MACR100C43 PO; +MELA5TAB20 PO; +MULT1TAB18 PO; +OMEP40CA2 PO; +OXYC-517 PO; +PRAV10TA4 PO; +TYLE650T35 PO; +VITA100067 PO
== END ==
LOC: M LAB REF 12:32
PROVIDERS: ATTEND Physician Assistant Medical
DX: N30.01 Acute cystitis with hematuria (principal)

== ENCOUNTER → 2018-02-06 | Outpatient (REF) | payer BC, OTHER ==
[2018-02-06 19:25] LABS: FREE T4 1.09 NG/DL (0.76-1.46); THYROID STIMULATING HORMONE 0.875 uIU/ML (0.358-3.740)
[2018-02-06 19:32] LABS: CORTISOL BASELINE 12.7 UG/DL (4.3-22.4)
== END ==
LOC: M LAB REF 18:06
DX: R53.83 Other fatigue (principal); E89.6 Postprocedural adrenocortical (-medullary) hypofunction
CPT/HCPCS: 84443

== ENCOUNTER → 2018-07-09 | Outpatient (REF) | payer OTHER ==
[2018-07-09 12:56] LABS: HEMATOCRIT 46.4 % (36.0-47.0); HEMOGLOBIN 15.5 g/dl (12.0-15.5); MEAN CORPUSCULAR HEMOGLOBIN 32.6 pg (27.0-33.0); MEAN CORPUSCULAR HGB CONC 33.4 g/dl (32.0-36.5); MEAN CORPUSCULAR VOLUME 97.7 fl (80.0-96.0); PLATELET COUNT, AUTOMATED 284 10^3/uL (150-450); RED BLOOD COUNT 4.75 10^6/uL (4.00-5.40); WHITE BLOOD COUNT 6.6 10^3/uL (4.0-10.0)
[2018-07-09 12:57] LABS: APPEARANCE, URINE CLEAR (CLEAR); BACTERIA, URINE AUTO NEGATIVE (NEGATIVE); BILIRUBIN, URINE AUTO NEGATIVE (NEGATIVE); BLOOD, URINE BLOOD NEGATIVE (NEGATIVE); COLOR, URINE YELLOW (YELLOW); GLUCOSE, URINE (UA) AUTO NEGATIVE (NEGATIVE); KETONE, URINE AUTO NEGATIVE (NEGATIVE); LEUKOCYTE ESTERASE, URINE AUTO NEGATIVE (NEGATIVE); MUCUS, URINE SMALL (NEGATIVE); NITRITE, URINE AUTO NEGATIVE (NEGATIVE); PROTEIN, URINE AUTO NEGATIVE (NEGATIVE); RBC, URINE AUTO 0 /HPF (0-3); SPECIFIC GRAVITY URINE AUTO 1.013 (1.002-1.035); SQUAMOUS EPITHELIAL CELL UR AU 0 /HPF (0-6); UROBILINOGEN, URINE AUTO 0.2 mg/dL (0.0-2.0); WBC, URINE AUTO 0 /HPF (0-3)
[2018-07-09 13:21] LABS: CALCIUM LEVEL 9.5 MG/DL (8.8-10.2); CHOLESTEROL RISK RATIO 5.578 (<5); CREATININE FOR GFR 1.07 MG/DL (0.55-1.30); FREE T4 1.04 NG/DL (0.76-1.46); GLOMERULAR FILTRATION RATE 55.3 (>45); POTASSIUM SERUM 4.6 MEQ/L (3.5-5.1); THYROID STIMULATING HORMONE 1.11 uIU/ML (0.358-3.740)
== END ==
LOC: M SFHCADAM 07:56
PROVIDERS: ATTEND Physician Assistant
DX: Z85.528 Personal history of other malignant neoplasm of kidney (principal); I12.9 Hypertensive chronic kidney disease with stage 1 through stage 4 chronic kidney disease, or unspecified chronic kidney disease; E78.49 Other hyperlipidemia; N18.3 Chronic kidney disease, stage 3 (moderate)

== ENCOUNTER → 2018-09-04 | Outpatient (CLI) | payer OTHER ==
[~2018-09-04] MED LIST changes: +GARL600T PO; +MULTCAP PO; +VITAD1000T PO
--- NOTE | 2018-09-04 11:30 | REP ---
Clinical: Preoperative assessment. Technique: PA and lateral. Comparison: 12/14/2017. Findings: Mediastinum and cardiac silhouette are within normal limits and stable. Innumerable calcified miliary nodules noted throughout the bilateral lung salinas suggesting prior granulomas disease versus changes related to metastatic disease. No focal acute consolidation, effusion, or pneumothorax. Skeletal structures intact. Impression: Chronic stable changes. No obvious acute cardiopulmonary process. Electronically Signed by Manny Batista MD 09/04/2018 11:21 A
[2018-09-04 13:25] LABS: HEMATOCRIT 45.5 % (36.0-47.0); HEMOGLOBIN 15.4 g/dl (12.0-15.5); MEAN CORPUSCULAR HEMOGLOBIN 32.8 pg (27.0-33.0); MEAN CORPUSCULAR HGB CONC 33.8 g/dl (32.0-36.5); MEAN CORPUSCULAR VOLUME 96.8 fl (80.0-96.0); PLATELET COUNT, AUTOMATED 287 10^3/uL (150-450)
[2018-09-04 13:39] LABS: INR 1.02; PROTHROMBIN TIME 13.1 SECONDS (11.8-14.0)
[2018-09-04 13:51] LABS: ERYTHROCYTE SEDIMENTATION RATE 22 mm/hr (0-30)
[2018-09-04 13:53] LABS: ALBUMIN 3.8 GM/DL (3.2-5.2); BILIRUBIN,TOTAL 0.4 MG/DL (0.2-1.0); CALCIUM LEVEL 9.2 MG/DL (8.8-10.2); CREATININE FOR GFR 1.06 MG/DL (0.55-1.30); GLOMERULAR FILTRATION RATE 55.9 (>45); POTASSIUM SERUM 4.3 MEQ/L (3.5-5.1); TOTAL PROTEIN 7.3 GM/DL (6.4-8.2)
== END ==
LOC: M ADAMS 09:45
PROVIDERS: ATTEND Orthopaedic Surgery
DX: Z01.818 Encounter for other preprocedural examination (principal); M17.11 Unilateral primary osteoarthritis, right knee; N28.9 Disorder of kidney and ureter, unspecified; I51.9 Heart disease, unspecified; R91.8 Other nonspecific abnormal finding of lung field

== ENCOUNTER 2018-09-27 11:13 | Inpatient (IN) | payer OTHER ==
--- NOTE | 2018-09-20 09:08 | HPE ---
DATE OF EXPECTED ADMISSION: PREOPERATIVE HISTORY AND PHYSICAL CHIEF COMPLAINT: Right knee pain. HISTORY OF PRESENT ILLNESS: Thais is a pleasant 63-year-old female with progressively worsening right knee pain and stiffness. She has failed to improve with conservative treatment. She has elected for surgery for her continued symptoms. She has pain with weightbearing activities and her activities of daily living. X-rays of her knee are notable for advanced osteoarthritis of the right knee joint. She has consented for a right total knee arthroplasty by Dr. Gordo Gaffney. Medical optimization was performed by Dr. Nassar's office. ALLERGIES: ZOCOR. CURRENT MEDICATIONS: Lisinopril 10 mg a day, pravastatin, Co Q 10, vitamin D and multivitamin. PAST MEDICAL HISTORY: Includes hypertension, kidney cancer and high cholesterol. PAST SURGICAL HISTORY: Includes kidney surgery in 2015 and for removal of cancer. SOCIAL HISTORY: This patient continues to work. Does not smoke. Occasionally drinks alcohol. FAMILY HISTORY: Is noncontributory. REVIEW OF SYSTEMS: This patient denies chest pain, heart palpitations, cough, wheezing, difficulty breathing and shortness of breath. She denies abdominal pain, nausea, vomiting, diarrhea or constipation. She denies recent upper respiratory infection or urinary tract infection symptoms. She does complain of persistent pain in her right knee. PHYSICAL EXAMINATION: General: She is well-nourished, well-developed in no acute distress, alert female patient. She walks with a moderate limp favoring her right lower extremity. She does not use assistive devices. Vital signs: She is 5 feet 5-1/2 inches tall, weighs 179 pounds with a temperature 97.4, pulse 62, respirations of 16, blood pressure 126/74. Neck was supple without adenopathy or jugular venous distension. Lungs were clear to auscultation without rales or wheeze throughout. Heart: Regular rate and rhythm. Abdomen: Bowel sounds were present. Extremities: Examination of the knee revealed intact skin. She had decreased range of motion due to pain and stiffness. The limb is neurovascularly intact. LABORATORY DATA: We are still pending her EKG she did have that done late last week. Chest x-ray showed no acute cardiopulmonary disease processes. Protime 13.1, INR 1.02. CBC showed an MCV of 96.8, otherwise within normal limits sed rate was 22, glucose 96, BUN 21, creatinine 1.06, and type and screen shows an O negative blood type. IMPRESSION: Symptomatic osteoarthritis of the right knee joint. PLAN: Consented for a right total knee arthroplasty by Dr. Gordo Gaffney.
[~2018-09-27] VITALS: Ht 167.6 cm; Wt 80.6 kg
[~2018-09-27 11:13] MED LIST changes: +LIDOCAINE 1% MDV 20ML VIAL SQ PRN; +LR 1,000 ML IV ONE
[2018-09-27 12:45] VITALS: BP 121/78
[2018-09-27 12:50] VITALS: BP 113/75
[2018-09-27] MEDS ORDERED: fentaNYL 100 MCG/2 ML INJECTION (J3010) As Ordered ONE ×2 (12:51→14:15)
[2018-09-27] MEDS ORDERED: MIDAZOLAM INJ 2 MG/2 ML VIAL (J2250) As Ordered ONE ×2 (12:52→14:15)
--- NOTE | 2018-09-27 13:37 | HPE ---
DATE OF ADMISSION: 09/27/2018 The patient seen and examined, and she wished to go ahead with a right knee arthroplasty. She understands the nature of this, the risks of bleeding, infection, damage to nerves, vessels, persistent pain, wear loosening, blood clots, medical problems, , among others. She understands this is likely to be a more complicated knee surgery due to her significant deformity. Preoperative clearance was obtained. We are planning on doing a right knee arthroplasty.
[2018-09-27] MEDS ORDERED: fentaNYL 100 MCG/2 ML INJECTION (J3010) IV ONE (13:45)
[2018-09-27] MEDS ORDERED: MIDAZOLAM INJ 2 MG/2 ML VIAL (J2250) IV ONE (13:45)
[2018-09-27] MEDS ORDERED: PROPOFOL 200 MG/20 ML VIAL As Ordered ONE (14:11)
[2018-09-27] MEDS ORDERED: LIDOCAINE 2% INJ 100 MG/5 ML SDV (FOR ANES.) As Ordered ONE (14:12)
[2018-09-27] MEDS ORDERED: ONDANSETRON 4MG/2ML VIAL (J2405) As Ordered ONE (14:13)
[2018-09-27] MEDS ORDERED: dexameTHASONE 4 MG/ML 1ML VIAL (J1100) As Ordered ONE (14:13)
[2018-09-27] MEDS ORDERED: HEPARIN SOD (PORCINE) 5000 UNITS/ML VIAL As Ordered ONE (14:18)
[2018-09-27] MEDS ORDERED: BUPIVACAINE/EPIN 0.5% 30 ML VIAL ONE (14:53)
[2018-09-27] MEDS ORDERED: dexameTHASONE 10 MG/1 ML VIAL PRES.FREE (J1100) ONE (14:53)
[2018-09-27] MEDS ORDERED: MORPHINE 2 MG/ML 1ML SYRINGE (J2270) IV PRN ×2 (16:30)
[2018-09-27] MEDS ORDERED: MORPHINE 10 MG/ML 1ML VIAL (J2270) IV PRN (16:30)
[2018-09-27] MEDS ORDERED: LR 1,000 ML IV SCH ×2 (16:30)
[2018-09-27] MEDS ORDERED: ONDANSETRON 4MG/2ML VIAL (J2405) IV PRN ×2 (16:30)
[2018-09-27] MEDS ORDERED: FLEET ENEMA PR PRN (16:30)
[2018-09-27] MEDS ORDERED: fentaNYL 100 MCG/2 ML INJECTION (J3010) IV PRN (16:30)
[2018-09-27] MEDS ORDERED: ACETAMINOPHEN TAB 650MG DOSE (2X325MG) PO PRN (16:30)
[2018-09-27] MEDS ORDERED: TRANEXAMIC ACID 100 MG/ML 10ML VIAL As Ordered ONE (16:58)
[2018-09-27] MEDS ORDERED: BUPIVACAINE LIPOSOME/PF 1.3% 20ML VIAL (13.3MG/ML)(EXPAREL)(C9290 PER1MG) As Ordered ONE (16:59)
[2018-09-27] MEDS ORDERED: ceFAZolin 1GM INJ (J0690 PER 500MG) As Ordered ONE (16:59)
[2018-09-27] MEDS ORDERED: EPINEPHrine INJ 1 MG/ML 1ML AMP As Ordered ONE (16:59)
--- NOTE | 2018-09-27 17:18 | REP ---
RIGHT KNEE, TWO VIEWS: AP and lateral views of the right knee are performed. There is placement of a total knee prosthesis. Metallic prostatic components are in good position. The structures are well aligned. Anterior skin luis are noted. Electronically Signed by Joseph Bills MD 09/27/2018 05:50 P
[2018-09-27] MEDS ORDERED: MORPHINE 4 MG/ML 1ML VIAL/SYRINGE (J2270) IV PRN ×2 (17:31→17:32)
[2018-09-27 18:36] VITALS: BP 122/64
[2018-09-27 20:11] VITALS: BP 118/67
[2018-09-27 21:11] VITALS: BP 122/66
[2018-09-27] MEDS: PERCOCET 5MG/325MG TAB PO PRN (21:16)
--- NOTE | 2018-09-28 00:51 | CR.PDOC ---
General Date of Consultation: Sep 27, 2018 Referring Provider: Gordo Gaffney Consultation REASON FOR CONSULTATION/CHIEF COMPLAINT: . HISTORY OF PRESENT ILLNESS: Thais is a pleasant 63-year-old female s/p right total knee arthroplasty 2/2 advanced osteoarthritis of the right knee joint. Patient is doing well, with no complaint. ALLERGIES: ZOCOR. CURRENT MEDICATIONS: Lisinopril 10 mg a day, pravastatin, Co Q 10, vitamin D and multivitamin. PAST MEDICAL HISTORY: Includes hypertension, kidney cancer and high cholesterol. PAST SURGICAL HISTORY: right adrenal gland and kidney removal 2/2 cancer 2015 and 17 respectively SOCIAL HISTORY: This patient continues to work. quit smoking 4 yrs ago, Occasionally drinks alcohol. FAMILY HISTORY: father -Dm2 and heart disease ROS - all 14 point review of system is negative except for whats listed in HPI Physical exam Gen: NAD, healthy appearing , HEENT: normocephalic, atraumatic, no discharge from ears or nose, no oropharyngeal erythema or exudate, neck is supple, no lymphadenopathy, trachea midline CVS: RRR, normal S1n S2, no murmur, rubs, or gallops, no edema, no jvd Resp: LCTAB, no rhonchi, wheezes or crackles Abd : soft nontender, normal bowel sounds, no rebound tenderness or guarding MSK: limited rom in right leg Neuro: AOAx3, no confusion, no focal deficit Psych: normal mood and affect, good judgment Assessment and Plan right knee arthroplasty prn pain meds, with anti-emetic and bowel regimen anticoagulation and abx per ortho rehab//pt consult htn -bp stable now , can resume bp meds if bp starts increasing hld -c/w home meds dvt ppx - on AC full code, from home, Vital Signs/I&O Vital Signs Date Time Temp Pulse Resp B/P (MAP) Pulse Ox O2 Delivery O2 Flow Rate FiO2 09/27/18 21:46 17 09/27/18 21:11 97.3 83 122/66 (84) 95 09/27/18 14:15 2 Allergies Coded Allergies: Clam (Verified Allergy, Intermediate, HIVES, 01/31/17) Nbmqeir-Gzo-Rxq Reductase Inhibitor (Verified Allergy, Unknown, 09/26/18) Sulfa (Sulfonamide Antibiotics) (Verified Allergy, Unknown, RASH, 09/26/18) niacin (Verified Allergy, Unknown, red flushin, 08/30/18) rosuvastatin (Verified Allergy, Unknown, 08/30/18) Home Medications Scheduled Acetaminophen (Tylenol Arthritis) 650 Mg Tab, 650 MG PO Q8H for ABDOMINAL PAIN for 10 Days, #30 Garlic Extract (Garlipure) 600 Mg Tablet, 600 MG PO DAILY, (Reported) Lisinopril (Lisinopril) 10 Mg Tab, 10 MG PO DAILY, (Reported) Multivitamin (Multivitamins) 1 Each Capsule, 1 CAP PO DAILY, (Reported) Pravastatin Sodium (Pravastatin Sodium) 10 Mg Tab, 10 MG PO DAILY, (Reported) Ubidecarenone/Vit E Acet (Co Q-10 100 mg Softgel) 100 Mg Cap, 100 MG PO DAILY, (Reported) Vitamin D (Vitamin D3) 1,000 Unit Tablet, 1,000 UNITS PO DAILY, (Reported) ELISHA TAPIA MD Sep 27, 2018 23:36
[2018-09-28 01:56] VITALS: BP 107/65
[2018-09-28] MEDS: PERCOCET 5MG/325MG TAB PO PRN ×3 (04:47→20:23)
[2018-09-28 06:07] VITALS: BP 107/66
[2018-09-28] MEDS ORDERED: XARE10TA PO (06:30)
[2018-09-28] MEDS ORDERED: PERC5TAB12 PO ×2 (06:30→06:33)
[2018-09-28 06:35] LABS: HEMATOCRIT 42.9 % (36.0-47.0); HEMOGLOBIN 14.2 g/dl (12.0-15.5); MEAN CORPUSCULAR HEMOGLOBIN 32.2 pg (27.0-33.0); MEAN CORPUSCULAR HGB CONC 33.1 g/dl (32.0-36.5); MEAN CORPUSCULAR VOLUME 97.3 fl (80.0-96.0); PLATELET COUNT, AUTOMATED 264 10^3/uL (150-450); RED BLOOD COUNT 4.41 10^6/uL (4.00-5.40); WHITE BLOOD COUNT 16.1 10^3/uL (4.0-10.0)
[2018-09-28] MEDS: MOM 30ML SUSPENSION UDC PO SCH (08:37)
[2018-09-28] MEDS ORDERED: CelecoXIB (CeleBREX) 100 MG CAP PO ONE (09:00)
[2018-09-28] MEDS ORDERED: MIRALAX *UNIT DOSE* 17GM PACKET PO SCH (09:00)
--- NOTE | 2018-09-28 09:26 | IPNPDOC ---
Subjective Date Seen The patient was seen on 09/28/18. Subjective Chief Complaint/HPI Pt this morning is feeling well. Pain is controlled. Denies CP, SOB, cough. General: Denies: Fatigue ENT: Denies: Head Aches Pulmonary: Denies: Dyspnea, Cough Cardiovascular: Denies: Chest Pain, Palpitations Gastrointestinal: Denies: Nausea, Vomiting, Diarrhea Neurological: Denies: Weakness Psych: Reports: Mood Normal Objective Physical Examination General Exam: Positive: Alert, Cooperative, No Acute Distress ENT Exam: Positive: Mucous membr. moist/pink Chest Exam: Positive: Clear to auscultation, Normal air movement Heart Exam: Positive: Rate Normal, Normal S1, Normal S2 Abdomen Exam: Positive: Normal bowel sounds, Soft; Negative: Tenderness Extremity Exam: Negative: Edema Neuro Exam: Positive: Normal Speech Psych Exam: Positive: Mood NL Assessment /Plan Problems (1) Hypertension Status: Chronic Response to Treatment: Stable Problem Specific Plan: Monitor Clinically Problem Text: SBP 90-110, continue off HD lisin 10 (2) Status post total right knee replacement Status: Acute Response to Treatment: Stable Problem Specific Plan: Monitor Clinically Problem Text: Pain mgmt, anticoag, bowel care per Ortho. (3) Adrenal neoplasm Status: Chronic Problem Text: watch for s/s AI 01/2017 sp R adrenalectomy [address] Grajeda (4) CKD (chronic kidney disease) stage 3, GFR 30-59 ml/min Problem Text: baseline cr 1.1-1.2 sp R nephrectomy 01/2016 2 RCC Plan/VTE VTE Prophylaxis Ordered?: Yes VS, I&O, 24H, Fishbone Vital Signs/I&O Vital Signs Date Time Temp Pulse Resp B/P (MAP) Pulse Ox O2 Delivery O2 Flow Rate FiO2 09/28/18 06:07 95.6 75 18 107/66 (80) 94 09/27/18 14:15 2 I&O- Last 24 Hours up to 6 AM 09/28/18 06:00 Intake Total 3330 ml Output Total 1900 ml Balance 1430 ml Laboratory Data 24H LABS Laboratory Tests 2 09/28/18 05:48: Nucleated Red Blood Cells % (auto) 0.0 CBC/BMP Laboratory Tests 09/28/18 05:48 Red Blood Count 4.41, Mean Corpuscular Volume 97.3 H, Mean Corpuscular Hemoglobin 32.2, Mean Corpuscular Hemoglobin Concent 33.1, Red Cell Distribution Width 12.4 JOSE G PHAM PA-C Sep 28, 2018 09:26 Ede Johnson M.D. Sep 28, 2018 16:27
[2018-09-28 10:00] VITALS: BP 103/62
[2018-09-28 14:00] VITALS: BP 103/65
--- NOTE | 2018-09-28 14:25 | RO ---
DATE OF PROCEDURE: 09/27/2018 PREPROCEDURE DIAGNOSIS: Right knee osteoarthritis advanced with severe valgus deformity. POSTPROCEDURE DIAGNOSIS: Right knee osteoarthritis advanced with severe valgus deformity with deficient MCL ligament. PROCEDURE: Right total knee arthroplasty using a PFC rotating platform posterior stabilized size 2.5 femur, 3 tibial tray, 17.5 polyethylene and repair / reefing of medial collateral ligament distally. SURGEON: Gordo Gaffney MD OFFICE SPEC: MICHELLE Stanford ANESTHESIA: Spinal ESTIMATED BLOOD LOSS: Less than 50. COMPLICATIONS: None. INDICATIONS: This is a 66-year woman who has had severe valgus and severe lateral compartment arthritis with some ligamentous instability of her right knee for quite some time. She was unable to tolerate it any longer and wished to go ahead with surgical treatment. She understood the nature of this and the risks associated with it and understood this to be more complex surgery, which I ordered in the TC3 three equipment in case I needed that but at least anticipated doing a posterior stabilized and anticipated possibly having do something with the MCL. DESCRIPTION OF PROCEDURE: The patient was taken to the operating room and placed in supine position. After spinal anesthesia was induced, the right lower extremity was prepped and draped in the usual sterile fashion. Time-out was performed. Tourniquet was inflated. I then created longitudinal incision over the anterior aspect the knee. She did have a quite subluxed patella, but I tried to centralize the incision. Sharp dissection was carried down through subcutaneous tissue until the deep layer was noted. A medial parapatellar arthrotomy was performed in the usual fashion, and I everted the patella. I did an immediate lateral release, which was fairly extensive due to her significant lateral subluxation of the patella, which was secondary I think to her notable valgus alignment. I then was able to alli the patella more easily, flexed the knee up, removed some osteophytes and she did have fairly notable bone loss on the lateral femoral condyle and lateral tibial plateau. I then used a canal initiating reamer, followed by the intramedullary guide set at 7 valgus and 10 mm cut. This was pinned in place and the distal femoral cut was made protecting soft tissues. The femoral sizer was used and it was sized to be a 2.5. Drill holes were placed in the end of the femur with the external rotation guide and the cutting block was then secured to the femur. The remaining four cuts were made in the usual fashion. The tibial guide was placed in the appropriate amount of valgus and posterior slope, protected the posterior and medial lateral tissues. I ended up removing approximately 8 off the medial side, which was 4 off the lateral side using the tibial guide and sizing guide. Drill holes were placed. The cut was made proximally removing the bone and was relatively thicker cut medially than we are used to with a varus knee because of her notable valgus. I then protect the tibial surface, placed the box cutting guide, the three cuts were made in the end of the femur, removing this bone and the remnant of the PCL. I then used a assisted living administrator and removed soft tissue and osteophytes from either side of the knee. There were some large osteophytes along the posterolateral aspect. Soft tissue balance was noted to be deficient medially at this point. I then prepared the tibial surface, sized it to be a 3, pinned this in place, drilled it and broached it. Also had done prior to this used the spacer blocks and felt that a 17.5 was going to be our best choice. A 15 was too loose, but again it was noted that the MCL was somewhat deficient and almost had been detached to some degree distally. I had taken care when I exposed this not to do any medial release, basically just to expose the proximal medial tibial plateau but not released the MCL. Once the trial components were placed with a 17.5, it was noted that the MCL was fairly deficient and she was somewhat unstable in valgus stress. She had good stability and varus stress both flexion, extension and this polyethylene thickness was appropriate. At this point, I elected to tighten and repair the MCL distally were it appeared to be somewhat deficient. Placed a FiberWire number 2 through the ligament and several bites were obtained through the MCL. I then passed these through the bone entering into the medullary canal where I had previously drilled and broached and passed both ends of the suture through this with the intention of wrapping it around the prosthetic stem. When I tightened the sutures and pulled on them, it brought the MCL down nicely and improved the soft tissue balance. We had freehand cut the patella, sized to be a 35. Drill holes were placed and the patella did track quite nicely after this lateral release. The trial components were removed. I irrigated copiously. The insurance claims assistant prepared the bone cement in the modern technique. I began by cementing in the tibial component, making sure the sutures one was anterior and one was posterior, impacted this down, removed excess bone cement and at this point tightened up the MCL by tying the suture and ended up with the knot just tibial post. I cemented on the femoral component, removed excess bone cement, placed the actual polyethylene and brought the knee out in extension. All excess bone cement was removed. We cemented on the patella, held it in place with a clamp. The bony surfaces had been carefully dried. I then placed the Exparel in deep tissues, the TXA in the deep wound. The overall tissue balance was really very good. There was minimal instability in valgus testing at this point, which was a significant improvement prior to repair of the MCL. Final irrigation was performed to the deep tissues. I then repaired the deep layer with #1 Vicryl suture after the cement had hardened and running Stratafix suture. Watertight closure was noted. I then irrigated, closed the subcutaneous with 2-0 Vicryl and the skin with luis. Sterile dressing was applied. Tourniquet had been deflated once the cement hardened. She was taken to the recovery room in stable condition. There were no known complications. The insurance claims assistant was instrumental in holding retractors and assisting in making one of the bone cuts and assisting in mixing the bone cement and assisting in wound closure. This was coded as an unusually difficult total knee due to her fairly profound valgus alignment and deficiency of the MCL. She also had quite poor bone quality medially and fairly dense bone quality laterally. I did have to do a fairly extensive lateral release in order to allow for patellar tracking in this valgus knee. Had to use the PFC system to allow for the TC3 back up to be available. In addition, the MCL had to be tightened and repaired distally to allow for appropriate stability. Overall, this was a complex primary total knee. The plan will be that we will get her a hinged Maite tight brace with the hinges from 0 to 90 degrees and allow her to bear weight with that on, and I think she can take the brace off while in bed but just needs to put it on while she is bearing weight, which will hopefully help support this medial repair, which was quite solid. Otherwise, routine postop.
[2018-09-28 17:12] LABS: ALBUMIN 3.3 GM/DL (3.2-5.2); BILIRUBIN,TOTAL 0.1 MG/DL (0.2-1.0); CALCIUM LEVEL 9.7 MG/DL (8.8-10.2); CREATININE FOR GFR 1.22 MG/DL (0.55-1.30); GLOMERULAR FILTRATION RATE 47.5 (>45); POTASSIUM SERUM 3.9 MEQ/L (3.5-5.1); TOTAL PROTEIN 6.8 GM/DL (6.4-8.2)
[2018-09-28] MEDS ORDERED: ALLOPURINOL 100 MG TAB PO ONE (17:15)
[2018-09-28] MEDS ORDERED: RIVAROXABAN 10 MG TAB (XARELTO) PO SCH (18:00)
[2018-09-28 22:00] VITALS: BP 103/64
[2018-09-29] MEDS: PERCOCET 5MG/325MG TAB PO PRN ×2 (03:25→08:26)
[2018-09-29 06:00] VITALS: BP 105/66
[2018-09-29 06:19] LABS: BASO % 0.2 % (0.0-1.0); EOS # 0.1 10^3/uL (0.0-0.50); EOS % 0.4 % (0.0-3.0); HEMOGLOBIN 12.8 g/dl (12.0-15.5); LYMPH # 2.2 10^3/uL (1.5-4.5); LYMPH % 13.9 % (24.0-44.0); MEAN CORPUSCULAR HEMOGLOBIN 32.7 pg (27.0-33.0); MEAN CORPUSCULAR HGB CONC 32.8 g/dl (32.0-36.5); MEAN CORPUSCULAR VOLUME 99.5 fl (80.0-96.0); MONO # 1.5 10^3/uL (0.0-0.8); MONO % 9.3 % (0.0-5.0); NEUTROPHILS # 11.9 10^3/uL (1.8-7.7); NEUTROPHILS % 75.8 % (36.0-66.0); PLATELET COUNT, AUTOMATED 249 10^3/uL (150-450); RED BLOOD COUNT 3.92 10^6/uL (4.00-5.40); WHITE BLOOD COUNT 15.7 10^3/uL (4.0-10.0)
[2018-09-29 06:51] LABS: ALBUMIN 3.1 GM/DL (3.2-5.2); BILIRUBIN,TOTAL 0.3 MG/DL (0.2-1.0); CALCIUM LEVEL 8.8 MG/DL (8.8-10.2); CREATININE FOR GFR 1.06 MG/DL (0.55-1.30); GLOMERULAR FILTRATION RATE 55.9 (>45); POTASSIUM SERUM 4.4 MEQ/L (3.5-5.1); TOTAL PROTEIN 6.3 GM/DL (6.4-8.2)
[2018-09-29] MEDS: MOM 30ML SUSPENSION UDC PO SCH (08:26)
--- NOTE | 2018-09-29 08:58 | IPN ---
DATE: 09/29/2018 Postop day #2 right total knee arthroplasty. HISTORY OF PRESENT ILLNESS: This 63-year-old female underwent a right total knee arthroplasty by Dr. Gaffney. This was 2 days ago. She was placed into a brace afterwards as she had a severe valgus deformity with deficient medial collateral ligament (MCL). She is out of the brace when she is in bed but definitely in the brace when she up and around 0 to 90 degrees. She is doing well with plans for discharge home today. No concerns from her or the nursing staff. PHYSICAL EXAM: Reveals a well-appearing 63-year-old female in no acute distress. Sitting up comfortably. She has a number of questions that we answered. Vital signs are stable. Temperature 97.5. Blood pressure 105/66. Pulse rate 71. Respiratory rate 18, 96% on room air. In terms of the bandage on the knee, it appears clean and dry. There is a moderate amount of swelling. Minimal ecchymosis. She has normal sensation throughout both feet. Feet are warm and well perfused with good pedal pulses. She is able to wiggle the toes, dorsiflex and plantar flex the foot. Laboratory examination revealed a hemoglobin of 12.8 down from 14.2. ASSESSMENT/PLAN: Thais will be discharged home today, weightbearing as tolerated. It sounds like she has good supports. She will follow up in the office in 2 weeks time with one of the physician assistants (PAs) to discontinue her luis and check the wound. She is well aware of her limitations with the brace due to her MCL valgus deformity. She will be discharged home on Percocet for oral pain control as well as rivaroxaban 10 mg by mouth once daily for venous thromboembolism (VTE) prophylaxis.
== END 2018-09-29 11:40 | disposition home or self-care (01) | DRG 470 ==
LOC: M OR 11:13 → M MS5PR 17:25
PROVIDERS: ADMIT Orthopaedic Surgery; ATTEND Orthopaedic Surgery
PROC: 0SRC0J9 Replacement of Right Knee Joint with Synthetic Substitute, Cemented, Open Approach (ICD-10-PCS; principal; 2018-09-27 13:25)
DX: M17.11 Unilateral primary osteoarthritis, right knee (principal); Z87.891 Personal history of nicotine dependence; I12.9 Hypertensive chronic kidney disease with stage 1 through stage 4 chronic kidney disease, or unspecified chronic kidney disease; Z85.828 Personal history of other malignant neoplasm of skin; E78.00 Pure hypercholesterolemia, unspecified; Z79.899 Other long term (current) drug therapy; Z88.2 Allergy status to sulfonamides; Z88.8 Allergy status to other drugs, medicaments and biological substances; Z91.013 Allergy to seafood; N18.3 Chronic kidney disease, stage 3 (moderate)

== ENCOUNTER → 2019-01-16 | Outpatient (REF) | payer OTHER ==
[~2019-01-16] MED LIST changes: +CHOL100029 PO; -LIDOCAINE 1% MDV 20ML VIAL SQ PRN; -LR 1,000 ML IV ONE; -OMEP40CA2 PO; +OMEP40CA97 PO; +PERC5TAB12 PO; -VITAD1000T PO; +XARE10TA PO
[2019-01-16 17:52] LABS: BASO # 0.1 10^3/uL (0.0-0.2); BASO % 1.5 % (0.0-1.0); EOS # 0.3 10^3/uL (0.0-0.5); EOS % 4.6 % (0.0-3.0); HEMATOCRIT 47.1 % (36.0-47.0); LYMPH # 2.1 10^3/uL (1.5-5.0); LYMPH % 30.6 % (24.0-44.0); MEAN CORPUSCULAR HEMOGLOBIN 31.3 pg (27.0-33.0); MEAN CORPUSCULAR HGB CONC 31.8 g/dl (32.0-36.5); MEAN CORPUSCULAR VOLUME 98.3 fl (80.0-96.0); MONO # 0.6 10^3/uL (0.0-0.8); NEUTROPHILS # 3.7 10^3/uL (1.5-8.5); PLATELET COUNT, AUTOMATED 325 10^3/uL (150-450); RED BLOOD COUNT 4.79 10^6/uL (4.00-5.40); WHITE BLOOD COUNT 6.8 10^3/uL (4.0-10.0)
[2019-01-16 17:57] LABS: APPEARANCE, URINE HAZY (CLEAR); BACTERIA, URINE AUTO NEGATIVE (NEGATIVE); BILIRUBIN, URINE AUTO NEGATIVE (NEGATIVE); BLOOD, URINE BLOOD 1+ (NEGATIVE); COLOR, URINE YELLOW (YELLOW); GLUCOSE, URINE (UA) AUTO NEGATIVE (NEGATIVE); KETONE, URINE AUTO NEGATIVE (NEGATIVE); LEUKOCYTE ESTERASE, URINE AUTO NEGATIVE (NEGATIVE); MUCUS, URINE SMALL (NEGATIVE); NITRITE, URINE AUTO NEGATIVE (NEGATIVE); PROTEIN, URINE AUTO NEGATIVE (NEGATIVE); RBC, URINE AUTO 5 /HPF (0-3); SPECIFIC GRAVITY URINE AUTO 1.016 (1.002-1.035); SQUAMOUS EPITHELIAL CELL UR AU 0 /HPF (0-6); UROBILINOGEN, URINE AUTO 0.2 mg/dL (0.0-2.0); WBC, URINE AUTO 0 /HPF (0-3)
[2019-01-16 18:47] LABS: ALBUMIN 3.8 GM/DL (3.2-5.2); CALCIUM LEVEL 9.6 MG/DL (8.8-10.2); CREATININE FOR GFR 1.05 MG/DL (0.55-1.30); GLOMERULAR FILTRATION RATE 56.5 (>45); PHOSPHORUS LEVEL 2.8 MG/DL (2.5-4.9); POTASSIUM SERUM 4.4 MEQ/L (3.5-5.1); URIC ACID 5.5 MG/DL (2.6-6.0)
== END ==
LOC: M LABDRWAD 17:26
PROVIDERS: ATTEND Internal Medicine Nephrology
DX: I12.0 Hypertensive chronic kidney disease with stage 5 chronic kidney disease or end stage renal disease (principal); M10.9 Gout, unspecified; N18.3 Chronic kidney disease, stage 3 (moderate)

== ENCOUNTER → 2019-01-16 | Outpatient (CLI) | payer OTHER ==
--- NOTE | 2019-01-16 14:12 | REP ---
Two-view chest: 01/16/2019. Indication: Renal cell carcinoma. Comparison: 09/04/2018. Findings: There is no air space consolidation, pleural effusion or pneumothorax. Numerous punctate opacities of the bilateral lungs are redemonstrated and essentially stable. The cardiac silhouette is not enlarged. The thoracic aorta is ectatic. Impression: No acute cardiopulmonary process. Stable numerous bilateral likely granulomata of the lungs. Electronically Signed by Lorne Arreola DO 01/16/2019 02:04 P
== END ==
LOC: M ADAMS 11:49
PROVIDERS: ATTEND Urology
DX: C64.1 Malignant neoplasm of right kidney, except renal pelvis (principal); Z90.5 Acquired absence of kidney; C79.71 Secondary malignant neoplasm of right adrenal gland

== ENCOUNTER → 2019-01-16 | Outpatient (REF) | payer OTHER ==
[2019-01-16 18:04] LABS: ALBUMIN 3.7 GM/DL (3.2-5.2); ALT/SGPT 21 U/L (12-78); BILIRUBIN,TOTAL 0.4 MG/DL (0.2-1.0); BLOOD UREA NITROGEN 19 MG/DL (7-18); CALCIUM LEVEL 9.9 MG/DL (8.8-10.2); CARBON DIOXIDE LEVEL 29 MEQ/L (21-32); CHLORIDE LEVEL 105 MEQ/L (98-107); CHOLESTEROL LEVEL 212 MG/DL (<200); CHOLESTEROL RISK RATIO 5.047 (<5); CREATININE FOR GFR 0.99 MG/DL (0.55-1.30); GLOMERULAR FILTRATION RATE > 60.0 (>45); GLUCOSE, FASTING 80 MG/DL (70-100); HDL CHOLESTEROL 42 MG/DL (>40); LDL CHOLESTEROL 118 MG/DL (<100); NON-HDL-C 170 MG/DL; POTASSIUM SERUM 4.4 MEQ/L (3.5-5.1); SODIUM LEVEL 143 MEQ/L (136-145); TOTAL PROTEIN 7.8 GM/DL (6.4-8.2); TRIGLYCERIDES LEVEL 262 MG/DL (<150)
== END ==
LOC: M SFHCADAM 11:45
PROVIDERS: ATTEND Physician Assistant
DX: C64.1 Malignant neoplasm of right kidney, except renal pelvis (principal); Z90.5 Acquired absence of kidney; C79.71 Secondary malignant neoplasm of right adrenal gland; E78.49 Other hyperlipidemia; I12.9 Hypertensive chronic kidney disease with stage 1 through stage 4 chronic kidney disease, or unspecified chronic kidney disease; M10.9 Gout, unspecified; N18.3 Chronic kidney disease, stage 3 (moderate)

== ENCOUNTER → 2019-01-18 | Outpatient (CLI) | payer OTHER ==
[~2019-01-18] MED LIST changes: +ISOVUE-370 76% 100ML VIAL (Q9967) As Ordered ONE
--- NOTE | 2019-01-18 15:22 | REP ---
REASON: History of renal carcinoma. CONTRAST: 100 mL of Isovue 370. COMPARISON: Multiple, the latest 12/25/2017. The lung bases are unchanged. There are multiple bilateral calcified granulomas and there is cylindrical bronchiectasis. The patient is status post right nephrectomy. The liver, gallbladder, spleen, pancreas, left adrenal gland, and left kidney are within normal limits. Bowel occupies the right renal fossa secondary to nephrectomy. The abdominal aorta and paraaortic regions are within normal limits. There is no free fluid or free air. The bowel loops and their mesenteries are within normal limits. There is no evidence of an intra-abdominal mass or adenopathy. CT PELVIS: The bowel loops and their mesenteries are within normal limits. There is no free fluid or free air. There is no mass or adenopathy. Bone window technique throughout the examination shows chronic spinal degenerative changes status quo. IMPRESSION: Stable findings are described above. There is no evidence of acute intra-abdominal or intrapelvic disease. Electronically Signed by Freeman Leahy DO 01/18/2019 03:29 P
== END ==
LOC: M RAD 10:04
PROVIDERS: ATTEND Urology
DX: Z85.528 Personal history of other malignant neoplasm of kidney (principal); Z90.5 Acquired absence of kidney; I10 Essential (primary) hypertension
CPT/HCPCS: 74177; Q9967

== ENCOUNTER → 2019-07-16 | Outpatient (REF) | payer OTHER ==
[~2019-07-16] MED LIST changes: +ACET650T61 PO; -ASPI81TA85 PO; +ASPI81TA86 PO; +HYDR-3490 PO; -HYDR25TAB PO; -ISOVUE-370 76% 100ML VIAL (Q9967) As Ordered ONE; +LISI10TA22 PO; -LISI10TA4 PO; -TYLE650T35 PO
[2019-07-16 14:15] LABS: BASO # 0.1 10^3/uL (0.0-0.2); BASO % 1.4 % (0.0-1.0); EOS # 0.3 10^3/uL (0.0-0.5); EOS % 3.8 % (0.0-3.0); HEMATOCRIT 49.1 % (36.0-47.0); HEMOGLOBIN 16.5 g/dl (12.0-15.5); LYMPH # 2.4 10^3/uL (1.5-5.0); LYMPH % 35.6 % (24.0-44.0); MEAN CORPUSCULAR HEMOGLOBIN 32.7 pg (27.0-33.0); MEAN CORPUSCULAR HGB CONC 33.6 g/dl (32.0-36.5); MEAN CORPUSCULAR VOLUME 97.2 fl (80.0-96.0); MONO # 0.6 10^3/uL (0.0-0.8); MONO % 8.6 % (0.0-5.0); NEUTROPHILS # 3.4 10^3/uL (1.5-8.5); NEUTROPHILS % 50.4 % (36.0-66.0); PLATELET COUNT, AUTOMATED 301 10^3/uL (150-450); RED BLOOD COUNT 5.05 10^6/uL (4.00-5.40); WHITE BLOOD COUNT 6.7 10^3/uL (4.0-10.0)
[2019-07-16 14:28] LABS: APPEARANCE, URINE CLEAR (CLEAR); BACTERIA, URINE AUTO NEGATIVE (NEGATIVE); BILIRUBIN, URINE AUTO NEGATIVE (NEGATIVE); BLOOD, URINE BLOOD 1+ (NEGATIVE); COLOR, URINE YELLOW (YELLOW); GLUCOSE, URINE (UA) AUTO NEGATIVE (NEGATIVE); KETONE, URINE AUTO NEGATIVE (NEGATIVE); LEUKOCYTE ESTERASE, URINE AUTO NEGATIVE (NEGATIVE); NITRITE, URINE AUTO NEGATIVE (NEGATIVE); PROTEIN, URINE AUTO NEGATIVE (NEGATIVE); RBC, URINE AUTO 5 /HPF (0-3); SPECIFIC GRAVITY URINE AUTO 1.016 (1.002-1.035); SQUAMOUS EPITHELIAL CELL UR AU 0 /HPF (0-6); UROBILINOGEN, URINE AUTO 0.2 mg/dL (0.0-2.0); WBC, URINE AUTO 1 /HPF (0-3)
[2019-07-16 14:49] LABS: ALBUMIN 3.9 GM/DL (3.2-5.2); CALCIUM LEVEL 10.3 MG/DL (8.8-10.2); CREATININE FOR GFR 1.11 MG/DL (0.55-1.30); GLOMERULAR FILTRATION RATE 52.8 (>45); PHOSPHORUS LEVEL 3.3 MG/DL (2.5-4.9); POTASSIUM SERUM 4.9 MEQ/L (3.5-5.1); URIC ACID 5.5 MG/DL (2.6-6.0)
== END ==
LOC: M LABDRWAD 12:26
PROVIDERS: ATTEND Internal Medicine Nephrology
DX: I12.9 Hypertensive chronic kidney disease with stage 1 through stage 4 chronic kidney disease, or unspecified chronic kidney disease (principal); M10.9 Gout, unspecified; N18.3 Chronic kidney disease, stage 3 (moderate)

== ENCOUNTER → 2020-01-14 | Outpatient (REF) | payer OTHER ==
[~2020-01-14] MED LIST changes: -HYDR-3490 PO; +HYDR25TAB PO; -LISI10TA22 PO; +LISI10TA4 PO
[2020-01-14 13:04] LABS: APPEARANCE, URINE CLEAR (CLEAR); BACTERIA, URINE AUTO 1+ (NEGATIVE); BILIRUBIN, URINE AUTO NEGATIVE (NEGATIVE); BLOOD, URINE BLOOD 1+ (NEGATIVE); COLOR, URINE YELLOW (YELLOW); GLUCOSE, URINE (UA) AUTO NEGATIVE (NEGATIVE); KETONE, URINE AUTO NEGATIVE (NEGATIVE); LEUKOCYTE ESTERASE, URINE AUTO TRACE (NEGATIVE); NITRITE, URINE AUTO NEGATIVE (NEGATIVE); PROTEIN, URINE AUTO NEGATIVE (NEGATIVE); RBC, URINE AUTO 5 /HPF (0-3); SPECIFIC GRAVITY URINE AUTO 1.017 (1.002-1.035); SQUAMOUS EPITHELIAL CELL UR AU 0 /HPF (0-6); UROBILINOGEN, URINE AUTO 0.2 mg/dL (0.0-2.0); WBC, URINE AUTO 4 /HPF (0-3)
[2020-01-14 13:18] LABS: BASO # 0.1 10^3/uL (0.0-0.2); BASO % 1.6 % (0.0-1.0); EOS # 0.2 10^3/uL (0.0-0.5); EOS % 3.9 % (0.0-3.0); HEMATOCRIT 49.3 % (36.0-47.0); HEMOGLOBIN 16.1 g/dl (12.0-15.5); LYMPH # 1.9 10^3/uL (1.5-5.0); LYMPH % 32.7 % (24.0-44.0); MEAN CORPUSCULAR HEMOGLOBIN 32.1 pg (27.0-33.0); MEAN CORPUSCULAR HGB CONC 32.7 g/dl (32.0-36.5); MEAN CORPUSCULAR VOLUME 98.2 fl (80.0-96.0); MONO # 0.5 10^3/uL (0.0-0.8); MONO % 9.2 % (0.0-5.0); NEUTROPHILS % 52.2 % (36.0-66.0); PLATELET COUNT, AUTOMATED 272 10^3/uL (150-450); RED BLOOD COUNT 5.02 10^6/uL (4.00-5.40); WHITE BLOOD COUNT 5.7 10^3/uL (4.0-10.0)
[2020-01-14 13:40] LABS: ALBUMIN 3.8 GM/DL (3.2-5.2); CALCIUM LEVEL 9.7 MG/DL (8.8-10.2); CREATININE FOR GFR 1.1 MG/DL (0.55-1.30); GLOMERULAR FILTRATION RATE 53.4 (>45); PHOSPHORUS LEVEL 2.9 MG/DL (2.5-4.9); POTASSIUM SERUM 4.8 MEQ/L (3.5-5.1); URIC ACID 6.5 MG/DL (2.6-6.0)
[2020-01-14 13:53] LABS: TOTAL 25(OH) VITAMIN D 36.6 NG/ML (30.0-100.0)
== END ==
LOC: M LABDRWAD 12:14
PROVIDERS: ATTEND Nurse Practitioner Family
DX: N18.30 Chronic kidney disease, stage 3 unspecified (principal); D63.1 Anemia in chronic kidney disease; N25.81 Secondary hyperparathyroidism of renal origin; E55.9 Vitamin D deficiency, unspecified; M10.9 Gout, unspecified

== ENCOUNTER → 2020-01-14 | Outpatient (CLI) | payer OTHER ==
--- NOTE | 2020-01-15 02:24 | REP ---
INDICATION: RIGHT RENAL CANCER, HISTORY OF NEPHRECTOMY COMPARISON: 01/16/2019, 12/14/2017 TECHNIQUE: PA and lateral. FINDINGS: Small scattered miliary nodules are essentially unchanged and likely predominantly calcified. No acute consolidation, effusion, or pneumothorax. The mediastinum and cardiac silhouette are normal. The skeletal structures are intact. IMPRESSION: No acute cardiopulmonary process. Chronic changes. <Electronically signed by Manny Batista > 01/15/20 [id number]
== END ==
LOC: M ADAMS 08:52
PROVIDERS: ATTEND Urology
DX: C64.1 Malignant neoplasm of right kidney, except renal pelvis (principal); Z90.5 Acquired absence of kidney

== ENCOUNTER → 2020-01-14 | Outpatient (REF) | payer OTHER ==
[2020-01-14 13:05] LABS: HEMATOCRIT 48.3 % (36.0-47.0); HEMOGLOBIN 15.5 g/dl (12.0-15.5); MEAN CORPUSCULAR HEMOGLOBIN 31.1 pg (27.0-33.0); MEAN CORPUSCULAR HGB CONC 32.1 g/dl (32.0-36.5); PLATELET COUNT, AUTOMATED 283 10^3/uL (150-450); RED BLOOD COUNT 4.98 10^6/uL (4.00-5.40); WHITE BLOOD COUNT 5.5 10^3/uL (4.0-10.0)
[2020-01-14 13:46] LABS: CALCIUM LEVEL 9.9 MG/DL (8.8-10.2); CHOLESTEROL RISK RATIO 4.818 (<5); CREATININE FOR GFR 1.08 MG/DL (0.55-1.30); FREE T4 1.21 NG/DL (0.76-1.46); GLOMERULAR FILTRATION RATE 54.5 (>45); POTASSIUM SERUM 4.7 MEQ/L (3.5-5.1); THYROID STIMULATING HORMONE 0.643 uIU/ML (0.358-3.740)
== END ==
LOC: M SFHCADAM 08:02
PROVIDERS: ATTEND Physician Assistant
DX: C64.1 Malignant neoplasm of right kidney, except renal pelvis (principal); Z90.5 Acquired absence of kidney; E78.49 Other hyperlipidemia

== ENCOUNTER → 2020-01-22 | Outpatient (CLI) | payer OTHER ==
[~2020-01-22] MED LIST changes: +ISOVUE-370 76% 100ML VIAL As Ordered ONE
--- NOTE | 2020-01-23 06:10 | REP ---
INDICATION: RENAL CANCER, RIGHT. COMPARISON: 01/18/2019, 12/25/2018 TECHNIQUE: Axial contrast-enhanced images from the lung bases to the pubic symphysis using 100 cc Isovue 370 intravenous contrast material. Delayed images of the abdomen as well as coronal and sagittal reformations obtained. This CT examination was performed using the following dose reduction techniques: Automated exposure control, adjustment of mA and/or kv according to the patient's size, and the use of iterative reconstruction technique. FINDINGS: Lung bases demonstrate scattered primarily calcified 2 mm nodular densities which may reflect post therapeutic changes. Visualized portions of the heart and pericardium are normal. Liver, spleen, pancreas, gallbladder, left adrenal gland and kidney are normal. Evidence for prior right nephrectomy noted. The right renal fossa is unremarkable and without obvious recurrence, fluid, or adenopathy. The enteric system including stomach, small, and large bowel appears normal. No evidence for obstruction or acute inflammatory process. Normal terminal ileum and appendix are identified in the right lower quadrant. Pelvis demonstrates normal bladder and age-appropriate uterus/adnexa. No ascites. No free air. No significant intraperitoneal or retroperitoneal adenopathy. Abdominal aorta and vasculature appear normal. Musculoskeletal structures are intact and without acute osseous abnormality. IMPRESSION: 1. No evidence for recurrence or metastatic disease related to renal carcinoma. 2. No acute abdominopelvic pathology appreciated. No ascites. No free air. No adenopathy. No focal inflammatory stranding. <Electronically signed by Manny Batista > 01/23/20 0607
== END ==
LOC: M RAD 10:05
PROVIDERS: ATTEND Urology
DX: C64.1 Malignant neoplasm of right kidney, except renal pelvis (principal); Z90.5 Acquired absence of kidney
CPT/HCPCS: 74177; Q9967

== ENCOUNTER → 2020-09-24 | Outpatient (CLI) | payer OTHER ==
[~2020-09-24] MED LIST changes: +HYDR-3490 PO; -HYDR25TAB PO; -ISOVUE-370 76% 100ML VIAL As Ordered ONE; +LISI10TA22 PO; -LISI10TA4 PO; +OMEP40CA4 PO; -OMEP40CA97 PO
--- NOTE | 2020-09-24 11:41 | REPMRS ---
Patient History The patient states she had a clinical breast exam in September 2020. Patient is postmenopausal and has history of other cancer at age 60. Family history of prostate cancer at age 50 or over in brother, prostate cancer in brother. No Hormone Replacement Therapy Screening mammo. Patient states she had her Covid Pfizer shot in her left arm in the end of May. Digital Woman Screen Mammo: September 24, 2020 - Exam #: [id number] Bilateral CC and MLO view(s) were taken. Technologist: Diane Oh, Technologist Prior study comparison: December 20, 2017, bilateral digital woman screen mammo performed at [facility]. July 28, 2016, digital woman screen mammo performed at [facility]. September 12, 2014, digital woman screen mammo performed at [facility]. FINDINGS: There are scattered fibroglandular densities. The Volpara volumetric breast density category is:B. There has been no change in the appearance of the mammogram from the prior studies. There is a mild amount of scattered fibroglandular density which is fairly symmetric. There is no interval development of dominant mass, architectural distortion, or grouped microcalcification suggestive of malignancy. 3-D tomosynthesis shows no additional findings. Assessment: BI-RADS/ACR category 1 mammogram. Negative Mammogram. Recommendation Routine screening mammogram of both breasts in 1 year (for women over age 40). This patient's [facility] Lifetime Breast Cancer Risk is estimated at 8.4 %. This mammogram was interpreted with the aid of an FDA-approved computer-aided dectection system. Electronically Signed By: Jonathan Santos MD 09/24/20 0358
== END ==
LOC: M WHC 10:34
PROVIDERS: ATTEND Nurse Practitioner Women's Health
DX: Z12.31 Encounter for screening mammogram for malignant neoplasm of breast (principal)

== ENCOUNTER → 2020-09-24 | Outpatient (REF) | payer OTHER | LOC: M SFHCWAGY 13:03 | PROVIDERS: ATTEND Nurse Practitioner Women's Health | DX: Z12.4 Encounter for screening for malignant neoplasm of cervix (principal) ==

== ENCOUNTER → 2020-11-20 | Outpatient (CLI) | payer OTHER ==
--- NOTE | 2020-11-20 08:57 | REP ---
INDICATION: RENAL CANCER, HISTORY OF NEPHRECTOMY COMPARISON: 01/14/2020 TECHNIQUE: PA and lateral. FINDINGS: The mediastinum and cardiac silhouette are normal. Innumerable bilateral miliary nodules are again noted and relatively similar to prior examination. No larger significant consolidation or mass. No effusion. No pneumothorax. Skeletal structures are intact.. IMPRESSION: Chronic miliary nodules essentially unchanged and likely sequelae of prior granulomatous disease. No new acute mediastinal or pleuroparenchymal process appreciated. <Electronically signed by Manny Batista > 11/20/20 0868
== END ==
LOC: M ADAMS 08:19
PROVIDERS: ATTEND Urology
DX: C64.1 Malignant neoplasm of right kidney, except renal pelvis (principal); Z90.5 Acquired absence of kidney

== ENCOUNTER → 2020-11-20 | Outpatient (REF) | payer OTHER ==
[~2020-11-20] MED LIST changes: +ACET1TAB16 PO; +ALLO100T PO; +AMOX875T2; +CEPH500C PO; +COLA100C5 PO; +D3 H400T PO; +GABA-282 PO; +INLY5TAB PO; +PERCOCET PO; +ZYRTTAB8 PO
[2020-11-20 13:50] LABS: HEMATOCRIT 46.4 % (36.0-47.0); HEMOGLOBIN 15.4 g/dl (12.0-15.5); MEAN CORPUSCULAR HEMOGLOBIN 32.3 pg (27.0-33.0); MEAN CORPUSCULAR HGB CONC 33.2 g/dl (32.0-36.5); MEAN CORPUSCULAR VOLUME 97.3 fl (80.0-96.0); PLATELET COUNT, AUTOMATED 289 10^3/uL (150-450); RED BLOOD COUNT 4.77 10^6/uL (4.00-5.40)
[2020-11-20 14:19] LABS: BLOOD UREA NITROGEN 17 MG/DL (7-18); CALCIUM LEVEL 9.8 MG/DL (8.8-10.2); CARBON DIOXIDE LEVEL 29 MEQ/L (21-32); CHLORIDE LEVEL 106 MEQ/L (98-107); CREATININE FOR GFR 0.96 MG/DL (0.55-1.30); GLOMERULAR FILTRATION RATE > 60.0 (>45); GLUCOSE, FASTING 93 MG/DL (70-100); POTASSIUM SERUM 4.9 MEQ/L (3.5-5.1); SODIUM LEVEL 140 MEQ/L (136-145)
== END ==
LOC: M SFHCADAM 08:11
PROVIDERS: ATTEND Urology
DX: C64.1 Malignant neoplasm of right kidney, except renal pelvis (principal); C79.71 Secondary malignant neoplasm of right adrenal gland; Z90.5 Acquired absence of kidney

== ENCOUNTER → 2020-11-20 | Outpatient (REF) | payer OTHER ==
[2020-11-20 13:44] LABS: APPEARANCE, URINE CLEAR (CLEAR); BILIRUBIN, URINE AUTO NEGATIVE (NEGATIVE); BLOOD, URINE BLOOD 2+ (NEGATIVE); COLOR, URINE YELLOW (YELLOW); GLUCOSE, URINE (UA) AUTO NEGATIVE (NEGATIVE); KETONE, URINE AUTO NEGATIVE (NEGATIVE); LEUKOCYTE ESTERASE, URINE AUTO NEGATIVE (NEGATIVE); NITRITE, URINE AUTO NEGATIVE (NEGATIVE); PROTEIN, URINE AUTO NEGATIVE (NEGATIVE); SPECIFIC GRAVITY URINE AUTO 1.017 (1.002-1.035); UROBILINOGEN, URINE AUTO 0.2 mg/dL (0.0-2.0)
[2020-11-20 13:46] LABS: BACTERIA, URINE AUTO NEGATIVE (NEGATIVE); RBC, URINE AUTO 8 /HPF (0-3); SQUAMOUS EPITHELIAL CELL UR AU 0 /HPF (0-6); WBC, URINE AUTO 1 /HPF (0-3)
[2020-11-20 13:53] LABS: BASO # 0.1 10^3/uL (0.0-0.2); BASO % 1.7 % (0.0-1.0); EOS # 0.4 10^3/uL (0.0-0.5); EOS % 4.8 % (0.0-3.0); HEMATOCRIT 47.1 % (36.0-47.0); HEMOGLOBIN 15.4 g/dl (12.0-15.5); LYMPH % 27.1 % (24.0-44.0); MEAN CORPUSCULAR HEMOGLOBIN 31.7 pg (27.0-33.0); MEAN CORPUSCULAR HGB CONC 32.7 g/dl (32.0-36.5); MEAN CORPUSCULAR VOLUME 96.9 fl (80.0-96.0); MONO # 0.9 10^3/uL (0.0-0.8); MONO % 11.7 % (2.0-8.0); NEUTROPHILS % 54.6 % (36.0-66.0); PLATELET COUNT, AUTOMATED 300 10^3/uL (150-450); RED BLOOD COUNT 4.86 10^6/uL (4.00-5.40); WHITE BLOOD COUNT 7.2 10^3/uL (4.0-10.0)
[2020-11-20 15:03] LABS: ALBUMIN 3.5 GM/DL (3.2-5.2); BLOOD UREA NITROGEN 17 MG/DL (7-18); CALCIUM LEVEL 9.5 MG/DL (8.8-10.2); CARBON DIOXIDE LEVEL 29 MEQ/L (21-32); CHLORIDE LEVEL 107 MEQ/L (98-107); CREATININE FOR GFR 0.93 MG/DL (0.55-1.30); GLOMERULAR FILTRATION RATE > 60.0 (>45); GLUCOSE, FASTING 92 MG/DL (70-100); MAGNESIUM LEVEL 2.1 MG/DL (1.8-2.4); PHOSPHORUS LEVEL 2.8 MG/DL (2.5-4.9); SODIUM LEVEL 139 MEQ/L (136-145); URIC ACID 5.8 MG/DL (2.6-6.0)
[2020-11-20 15:15] LABS: PTH INTACT 57.3 PG/ML (18.5-88.0)
== END ==
LOC: M LABDRWAD 13:34
PROVIDERS: ATTEND Internal Medicine Nephrology
DX: N18.31 Chronic kidney disease, stage 3a (principal); D63.1 Anemia in chronic kidney disease; M10.9 Gout, unspecified; E83.42 Hypomagnesemia

== ENCOUNTER → 2020-11-30 | Outpatient (REF) | payer OTHER ==
[~2020-11-30] MED LIST changes: -ACET1TAB16 PO; -ALLO100T PO; -AMOX875T2; -CEPH500C PO; -COLA100C5 PO; -D3 H400T PO; -GABA-282 PO; -INLY5TAB PO; -PERCOCET PO; -ZYRTTAB8 PO
[2020-11-30 15:09] LABS: BASO # 0.1 10^3/uL (0.0-0.2); BASO % 1.4 % (0.0-1.0); EOS # 0.3 10^3/uL (0.0-0.5); EOS % 4.7 % (0.0-3.0); HEMATOCRIT 46.8 % (36.0-47.0); HEMOGLOBIN 15.5 g/dl (12.0-15.5); LYMPH # 2.3 10^3/uL (1.5-5.0); LYMPH % 35.4 % (24.0-44.0); MEAN CORPUSCULAR HEMOGLOBIN 31.5 pg (27.0-33.0); MEAN CORPUSCULAR HGB CONC 33.1 g/dl (32.0-36.5); MEAN CORPUSCULAR VOLUME 95.1 fl (80.0-96.0); MONO # 0.7 10^3/uL (0.0-0.8); MONO % 10.7 % (2.0-8.0); NEUTROPHILS # 3.1 10^3/uL (1.5-8.5); NEUTROPHILS % 47.5 % (36.0-66.0); PLATELET COUNT, AUTOMATED 313 10^3/uL (150-450); RED BLOOD COUNT 4.92 10^6/uL (4.00-5.40); WHITE BLOOD COUNT 6.4 10^3/uL (4.0-10.0)
[2020-11-30 15:42] LABS: ALBUMIN 3.6 GM/DL (3.2-5.2); BILIRUBIN,TOTAL 0.5 MG/DL (0.2-1.0); CALCIUM LEVEL 9.7 MG/DL (8.8-10.2); CHOLESTEROL RISK RATIO 5.166 (<5); CREATININE FOR GFR 1.08 MG/DL (0.55-1.30); GLOMERULAR FILTRATION RATE 54.4 (>45); POTASSIUM SERUM 4.6 MEQ/L (3.5-5.1); THYROID STIMULATING HORMONE 0.837 uIU/ML (0.358-3.740); TOTAL PROTEIN 7.6 GM/DL (6.4-8.2)
== END ==
LOC: M SFHCADAM 09:52
PROVIDERS: ATTEND Physician Assistant
DX: I10 Essential (primary) hypertension (principal)

== ENCOUNTER → 2020-12-04 | Outpatient (CLI) | payer OTHER ==
[~2020-12-04] MED LIST changes: +ISOVUE-370 76% 100ML VIAL As Ordered ONE
--- NOTE | 2020-12-04 14:26 | REP ---
INDICATION: HX OF RENAL CELL CA. COMPARISON: Multiple the latest 01/22/2020 also after intravenous contrast TECHNIQUE: Standard helical technique after the intravenous administration of 100 cc Isovue 3 7 FINDINGS: The lung bases are clear and unchanged. There is a stable pleural base nodule in the left lower lobe. Note is again made of multiple bilateral incidental calcified granulomas. There is mild cylindrical bronchiectasis status quo. The liver, gallbladder, spleen, pancreas, left adrenal gland and left kidney are unchanged. Once again, bowel occupies the right renal fossa secondary to previous right nephrectomy. The abdominal aorta and para-aortic regions are unchanged. No adenopathy has developed. There is no evidence of free fluid or free air. Bowel loops and the mesenteries are again seen to be within normal limits. There is a new enhancing mass arising from the inferior pole of the left kidney measuring 2.8 cm. There is an additional new enhancing mass in the interpolar region of the left kidney which measures 1.2 cm. Bone window technique throughout the exam shows an unchanged L5 upon S1 spondylolisthesis with advanced spinal degenerative changes and discogenic changes with multiple levels of air density in disc spaces consistent with vacuum phenomena from degenerative disc disease. There is bilateral L5 spondylolysis. I see no definite evidence of interim development of a lytic or blastic osseous lesion. IMPRESSION: 1. Two new enhancing left renal masses as described above highly suspicious for neoplasm. 2. Other findings and chronic changes as described above. 3. Lung base findings as described above. <Electronically signed by Freeman Leahy > 12/04/20 2591
== END ==
LOC: M RAD 13:39
PROVIDERS: ATTEND Urology
DX: C64.1 Malignant neoplasm of right kidney, except renal pelvis (principal); C79.71 Secondary malignant neoplasm of right adrenal gland; Z90.5 Acquired absence of kidney

== ENCOUNTER → 2020-12-14 | Outpatient (REF) | payer OTHER ==
[~2020-12-14] MED LIST changes: -ISOVUE-370 76% 100ML VIAL As Ordered ONE
== END ==
LOC: M LAB REF 16:57
PROVIDERS: ATTEND Internal Medicine Nephrology
DX: N39.0 Urinary tract infection, site not specified (principal)

== ENCOUNTER → 2020-12-21 | Outpatient (CLI) | payer OTHER ==
[~2020-12-21] MED LIST changes: +ALLO100T PO; +D3 H400T PO; +ZYRTTAB8 PO
--- NOTE | 2020-12-21 20:51 | ECGEPIP ---
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
== END ==
LOC: M EKG 12:06
PROVIDERS: ATTEND Urology
DX: Z01.818 Encounter for other preprocedural examination (principal)
CPT/HCPCS: 93005; U0003

== ENCOUNTER → 2020-12-21 | Outpatient (CLI) | payer OTHER ==
[~2020-12-21] MED LIST changes: -ALLO100T PO; -D3 H400T PO; -ZYRTTAB8 PO
== END ==
LOC: M LABSMTC 11:38
PROVIDERS: ATTEND Anesthesiology
DX: Z01.812 Encounter for preprocedural laboratory examination (principal); Z20.822 Contact with and (suspected) exposure to COVID-19

== ENCOUNTER 2020-12-24 07:20 | Inpatient (IN) | payer OTHER ==
[~2020-12-24] VITALS: Ht 167.6 cm; Wt 80.6 kg
[2020-12-24] VITALS (7 sets, daily range): BP systolic 115–131; BP diastolic 57–85
[~2020-12-24 07:20] MED LIST changes: +ALLO100T PO; +BUPIVACAINE HCL 0.25% 30ML VIAL As Ordered ONE; +D3 H400T PO; +LIDOCAINE 1% MDV 20ML VIAL SQ PRN; +LIDOCAINE 1% SDV 30ML VIAL As Ordered ONE; +LR 1,000 ML IV ONE; +ZYRTTAB8 PO; +ceFAZolin SOD 2 GM in IV 1 EA IV ONE
[2020-12-24] MEDS ORDERED: ONDANSETRON 4MG/2ML VIAL As Ordered ONE (07:22)
[2020-12-24] MEDS ORDERED: ROCURONIUM BROMIDE 50 MG/5 ML VIAL As Ordered ONE ×3 (07:22→15:11)
[2020-12-24] MEDS ORDERED: LIDOCAINE 2% 100MG/5ML SDV (FOR ANES.) As Ordered ONE (07:22)
[2020-12-24] MEDS ORDERED: METOCLOPRAMIDE INJ 10MG/2ML VIAL (J2765 PER 1) As Ordered ONE (07:22)
[2020-12-24] MEDS ORDERED: fentaNYL 250 MCG/5 ML INJECTION (J3010) As Ordered ONE (07:22)
[2020-12-24] MEDS ORDERED: dexameTHASONE 4 MG/ML 1ML VIAL (J1100 PER 1MG) As Ordered ONE (07:22)
[2020-12-24] MEDS ORDERED: ACETAMINOPHEN 1000MG 100ML IV BTL (OFIRMEV) (J0131 PER 10MG) As Ordered ONE (07:22)
[2020-12-24] MEDS ORDERED: propofoL 200 MG/20 ML VIAL As Ordered ONE (07:22)
[2020-12-24] MEDS ORDERED: MIDAZOLAM INJ 2MG/2ML VIAL (J2250 PER 1MG) As Ordered ONE (07:23)
--- OUTSIDE RECORDS SUMMARY | 2020-12-24 07:25 | CCD ---
Author Author [facility] [employer] [facility] [employer] Organization Located Within [facility] [employer] Address Unknown Phone Unavailable Care Team Providers Care Pharmacy Cashier Name Role Phone Inocencio Nassar Unavailable PROBLEMS Type Condition ICD9-CM Code SBB30-KU Code Onset Dates Condition S tatus W/U Status Risk SNOMED Code Notes Problem GERD (gastroesophageal reflux disease) K21.9 A ctive confirmed 397753788 Problem Other hyperlipidemia E78.4 Active confirmed 80030003 Problem Essential (primary) hypertension I10 Active conf irmed 17560111 Problem Renal mass N28.89 Active confirmed 707569306 Problem Osteoarthritis of right knee M17.9 Active confirme d 003787118 Problem Renal cancer, right C64.1 Active confirmed 724394765 Problem Renal neoplasm D49.519 Active confirmed 1268 99480 Problem Lung nodule seen on imaging study R91.1 Active confirmed 028440450 Problem History of kidney cancer Z85.528 Active confirmed 049472356 Problem 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 Active confirmed 175163289 Problem Other hyperlipidemia E78.49 Active confirmed 46719050 Problem Adrenal mass E27.9 Active confirmed 3972049 06 Problem Preop testing Z01.818 Active confirmed 31880 9001 Problem History of nephrectomy Z90.5 Active confirmed 71878207591674 Problem CKD (chronic kidney disease) stage 3, GFR 30-59 ml/min N18.3 Active confirmed 264557006 Problem Hyperuricemia E79.0 Active confirmed 914791 06 Problem 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 Active confirmed 892446088 Problem 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 Active confirmed 76984806 ALLERGIES Allergen (clinical drug ingredient) Drug/Non Drug Allergy do cumented on EMR Reaction Allergy Type Onset Date Status Sulfasalazine Sulfa Antibiotics Rash Drug Allergy Ac tive Crestor and Zocor hip pain Non Drug Allergy A ctive Glucosamine Shellfish-derived Products Hives Drug Allergy Active ENCOUNTERS from 1955 to 2020-12-22 Encounter Location Date Provider Diagnosis [facility] [address] [place] [id number] Dec, Inocencio Nassar IMMUNIZATIONS Vaccine Route Administration Date Status COVID-19 dose #2 given elsewhere Unspecified Unknown Jun Administered COVID-19 dose #1 given elsewhere Unspecified Unknown May Administered Influenza Pharmacy Given Unknown Feb 16, 2018 Adminis tered Influenza 18 yrs & older Flublok IM Intramuscular Dec 01, 2020 Administered Influenza 18 yrs & older Flublok IM Intramuscular Jan 29, 2019 Administered Zoster 50mcg/0.5mL Shingrix Unknown Oct 18, 2017 Admi nistered Zoster 50mcg/0.5mL Shingrix Unknown July 04, 2017 Admi nistered TDAP 0.5mL (Boostrix) IM Intramuscular July 24, 2019 Administe red SOCIAL HISTORY Tobacco Use: Social History Observation Description Date Details (start date - stop date) Former Smoker Sex Assigned At : Social History Observation Description Sex Assigned At Unknown Audit Question Answer Notes Total Score: 3 Interpretation: Alcohol Education Drug and Alcohol Question Answer Notes Total Score: 0 Interpretation: No problems reported Alcohol Screening: Question Answer Notes Did you have a drink containing alcohol in the past year? Ye s Points 3 Interpretation Positive How often did you have six or more drinks on one occas ion in the past year? Never (0 points) How many drinks did you have on a typica l day when you were drinking in the past year? 1 or 2 (0 points) How often did you have a drink containing alcohol in t he past year? Two to three times per week (3 points) Tobacco Use: Question Answer Notes Are you a: former smoker How long has it been since you last smoked? 1-5 years REASON FOR REFERRAL No Information VITAL SIGNS No information MEDICATIONS Medication SIG (Take, Route, Frequency, Duration) Notes Start Da te End Date Status Lisinopril 5 MG 1 tablet Orally Daily Jan, Active Flonase 50 MCG/ACT 1 spray in each nostril Once a day PRN Active Allopurinol 100 MG 1 tablet Orally Once a day Active Pravastatin Sodium 20 MG 1 tablet Orally Once a day Active ZyrTEC Allergy 10 MG 1 tablet Orally Once a day for 30 day(s) Active Vitamin D-3 25 MCG (1000 UT) 1 capsule Orally Once a day for 30 day(s ) Active Coenzyme Q-10 100 MG 1 cap(s) p.o. once a day Active PROCEDURES No Information RESULTS No Results REASON FOR VISIT needs surgery 12/23 MEDICAL (GENERAL) HISTORY Type Description Date Medical History HTN Medical History Hyperlipidemia - Risk score 5.2% 06/2016 Medical History osteogenesis imperfecta - elbow fracture x2 Medical History seasonal allergies Medical History postmenopause Medical History Right knee OA - rt TKA 06/22 Medical History Right renal cell carcinoma s /p Nephrectomy with clean margins. Followed by Urology Medical History Gout Medical History Multiple Lung nodules per Ct - stable pe r CT 06/2017 Medical History adrenal gland cancer Medical History ASCVD Risk = 7.7% 11/2020 Surgical History tubal ligation Surgical History knee surgery X2 Surgical History bunionectomy Surgical History elbow surgery X 2 Surgical History tendon repair Surgical History C section Surgical History Declines Colonoscopy, Declines 08/2017 Surgical History Right Radical Nephrectomy 01/19/16 Surgical History Right adrenalectomy 01/31/17 Surgical History knee replacement right 06/28/18 Hospitalization History childbirth x2 Hospitalization History surgery Goals Section No Information Health Concerns No Information MEDICAL EQUIPMENT No Information MENTAL STATUS No Information FUNCTIONAL STATUS No Information ASSESSMENTS No Information PLAN OF TREATMENT No Information Insurance Providers Payer Name Payer Address Payer Phone Insured Name Patient Relati onship to Insured Coverage Start Date Coverage End Date [facility] [employer] [id number] [id number] [address]
--- OUTSIDE RECORDS SUMMARY | 2020-12-24 07:25 | CCD ---
Author Author [facility] Syst ems Organization [facility] Syst ems Address Unknown Phone Unavailable Care Team Providers Care Line Haul Truck Driver Name Role Phone Everardo Allison Unavailable PROBLEMS Type Condition ICD9-CM Code JIP89-AQ Code Onset Dates Condition S tatus W/U Status Risk SNOMED Code Notes Problem GERD (gastroesophageal reflux disease) K21.9 A ctive confirmed 206463437 Problem Other hyperlipidemia E78.4 Active confirmed 02872563 Problem Essential (primary) hypertension I10 Active conf irmed 85950553 Problem Renal mass N28.89 Active confirmed 023991435 Problem Osteoarthritis of right knee M17.9 Active confirme d 360101789 Problem Renal cancer, right C64.1 Active confirmed 233088418 Problem Renal neoplasm D49.519 Active confirmed 1268 30007 Problem Lung nodule seen on imaging study R91.1 Active confirmed 957199486 Problem History of kidney cancer Z85.528 Active confirmed 649137837 Problem 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 Active confirmed 406827678 Problem Other hyperlipidemia E78.49 Active confirmed 75814659 Problem Adrenal mass E27.9 Active confirmed 4403406 06 Problem Preop testing Z01.818 Active confirmed 26243 9001 Problem History of nephrectomy Z90.5 Active confirmed 60082097319280 Problem CKD (chronic kidney disease) stage 3, GFR 30-59 ml/min N18.3 Active confirmed 678594621 Problem Hyperuricemia E79.0 Active confirmed 466272 06 Problem 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 Active confirmed 204526077 Problem 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 Active confirmed 65073613 ALLERGIES Allergen (clinical drug ingredient) Drug/Non Drug Allergy do cumented on EMR Reaction Allergy Type Onset Date Status Sulfasalazine Sulfa Antibiotics Rash Drug Allergy Ac tive Crestor and Zocor hip pain Non Drug Allergy A ctive Glucosamine Shellfish-derived Products Hives Drug Allergy Active ENCOUNTERS from 1955 to 2020-12-22 Encounter Location Date Provider Diagnosis [facility] Urology [address] [phone] [place] [address] Dec, Everardo Allison IMMUNIZATIONS Vaccine Route Administration Date Status COVID-19 [...] Information RESULTS No Results REASON FOR VISIT CT MEDICAL (GENERAL) HISTORY Type Description Date Medical [...] Insured Coverage Start Date Coverage End Date [facility] [address] [place] [address] [employer]
--- OUTSIDE RECORDS SUMMARY | 2020-12-24 07:25 | CCD ---
Author Author [employer] [facility] Syst ems Organization [facility] Syst ems Address Unknown Phone Unavailable Care Team Providers Care Probation Manager Name Role Phone Everardo Allison Unavailable PROBLEMS Type Condition ICD9-CM Code JIF04-FT Code Onset Dates Condition S tatus W/U Status Risk SNOMED Code Notes Problem GERD (gastroesophageal reflux disease) K21.9 A ctive confirmed 430110664 Problem Other hyperlipidemia E78.4 Active confirmed 25311579 Problem Essential (primary) hypertension I10 Active conf irmed 73045283 Problem Renal mass N28.89 Active confirmed 428297451 Problem Osteoarthritis of right knee M17.9 Active confirme d 707747323 Problem Renal cancer, right C64.1 Active confirmed 633622278 Problem Renal neoplasm D49.519 Active confirmed 1268 12145 Problem Lung nodule seen on imaging study R91.1 Active confirmed 717731943 Problem History of kidney cancer Z85.528 Active confirmed 137331544 Problem 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 Active confirmed 500328707 Problem Other hyperlipidemia E78.49 Active confirmed 61050811 Problem Adrenal mass E27.9 Active confirmed 0421316 06 Problem Preop testing Z01.818 Active confirmed 81775 9001 Problem History of nephrectomy Z90.5 Active confirmed 58928972571983 Problem CKD (chronic kidney disease) stage 3, GFR 30-59 ml/min N18.3 Active confirmed 382256743 Problem Hyperuricemia E79.0 Active confirmed 891583 06 Problem 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 Active confirmed 264768948 Problem 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 Active confirmed 61158479 ALLERGIES Allergen (clinical drug ingredient) Drug/Non Drug Allergy do cumented on EMR Reaction Allergy Type Onset Date Status Sulfasalazine Sulfa Antibiotics Rash Drug Allergy Ac tive Crestor and Zocor hip pain Non Drug Allergy A ctive Glucosamine Shellfish-derived Products Hives Drug Allergy Active ENCOUNTERS from 1955 to 2020-12-23 Encounter Location Date Provider Diagnosis [facility] Urology [address] [phone] [place] [address] 15 Dec, 2020 Everardo Allison IMMUNIZATIONS Vaccine Route Administration Date [...] Information RESULTS No Results REASON FOR VISIT No Information MEDICAL (GENERAL) HISTORY Type Description Date Medical [...] Insured Coverage Start Date Coverage End Date [facility] INS[facility]ANCE [address] [place] [id number] DM[employer]
--- OUTSIDE RECORDS SUMMARY | 2020-12-24 07:25 | CCD ---
Author Author [facility] Syst ems Organization [facility] Syst ems Address Unknown Phone Unavailable Care Team Providers Care Supervisor Name Role Phone Everardo Allison Unavailable PROBLEMS Type Condition ICD9-CM Code PUW08-RQ Code Onset Dates Condition S tatus W/U Status Risk SNOMED Code Notes Problem GERD (gastroesophageal reflux disease) K21.9 A ctive confirmed 055736652 Problem Other hyperlipidemia E78.4 Active confirmed 47783204 Problem Essential (primary) hypertension I10 Active conf irmed 98578834 Problem Renal mass N28.89 Active confirmed 270763178 Problem Osteoarthritis of right knee M17.9 Active confirme d 979610248 Problem Renal cancer, right C64.1 Active confirmed 536262356 Problem Renal neoplasm D49.519 Active confirmed 1268 24599 Problem Lung nodule seen on imaging study R91.1 Active confirmed 361709530 Problem History of kidney cancer Z85.528 Active confirmed 945755978 Problem 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 Active confirmed 457783389 Problem Other hyperlipidemia E78.49 Active confirmed 26248361 Problem Adrenal mass E27.9 Active confirmed 9932270 06 Problem Preop testing Z01.818 Active confirmed 97673 9001 Problem History of nephrectomy Z90.5 Active confirmed 84841341774552 Problem CKD (chronic kidney disease) stage 3, GFR 30-59 ml/min N18.3 Active confirmed 798860656 Problem Hyperuricemia E79.0 Active confirmed 633799 06 Problem 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 Active confirmed 720886579 Problem 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 Active confirmed 66936375 ALLERGIES Allergen (clinical drug ingredient) Drug/Non Drug Allergy do cumented on EMR Reaction Allergy Type Onset Date Status Sulfasalazine Sulfa Antibiotics Rash Drug Allergy Ac tive Crestor and Zocor hip pain Non Drug Allergy A ctive Glucosamine Shellfish-derived Products Hives Drug Allergy Active ENCOUNTERS from 1955 to 2020-12-22 Encounter Location Date Provider Diagnosis [facility] Urology [address] [phone] [place] [address] Dec, Everardo Allison Renal cancer, right C64.1 ; Malignant ne oplasm metastatic to right adrenal gland C79.71 ; Preop testing Z01.818 and History of nephrectomy Z90.5 IMMUNIZATIONS Vaccine Route Administration Date Status COVID-19 [...] REASON FOR REFERRAL No Information VITAL SIGNS Weight 180 lbs Dec, Weight-kg 81.65 kg Dec, Height 66 in 15 Dec, 2020 BMI 29.05 kg/m2 Dec, Heart Rate 86 /min Dec, Respiratory Rate 18 /min Dec, Temperature 97.6 degrees Fahrenheit Dec, Oximetry 95 Dec, Blood pressure systolic 120 mm Hg Dec, Blood pressure diastolic 84 mm Hg Dec, MEDICATIONS Medication SIG (Take, Route, Frequency, Duration) [...] Information RESULTS No Results REASON FOR VISIT yearly f/u MEDICAL (GENERAL) HISTORY Type Description Date Medical [...] No Information FUNCTIONAL STATUS No Information ASSESSMENTS Encounter Date Diagnosis Assessment Notes Treatment Notes Treatm ent Clinical Notes Dec, Renal cancer, right (ICD-10 - C64.1) - imaging results discussed - informed consent signed for a L robotic partial nephrectomy - will try to schedule for next week - patient had a CBC, CMP, and CXR done w/i the last 2-3 wks - will need a preop EKG and medical clearance - I will call nephrology to alert them of the surgery day in case dialysis is needed postop Dec, Malignant neoplasm metastati c to right adrenal gland (ICD-10 - C79.71) Dec, Preop testing (ICD-10 - Z01.818) Dec, History of nephrectomy (ICD-10 - Z90.5) PLAN OF TREATMENT Treatment Notes Assessment Notes Clinical Notes Renal cancer, right - imaging results di scussed- informed consent signed for a L robotic partial nephrectomy - will try to schedule for next week- patient had a CBC, CMP, and CXR done w/i the last 2-3 wks- will need a preop EKG and medical clearance- I will call nephrology to alert them of the surgery day in case dialysis is needed postop Treatment Notes Test Name Order Date Electrocardiogram (EKG) 2020-12-18 Next Appt Details surgery Reason: Insurance Providers Payer Name Payer Address Payer Phone Insured Name Patient Relati onship to Insured Coverage Start Date Coverage End Date [facility] [address] [place] [id number] [employer]
--- OUTSIDE RECORDS SUMMARY | 2020-12-24 07:25 | CCD ---
Author Author [facility] Syst ems Organization [facility] Syst ems Address Unknown Phone Unavailable Care Team Providers Care Laboratory Helper Name Role Phone Tamara Nassar Unavailable PROBLEMS Type Condition ICD9-CM Code XMP75-PT Code Onset Dates Condition S tatus W/U Status Risk SNOMED Code Notes Problem GERD (gastroesophageal reflux disease) K21.9 A ctive confirmed 486757154 Problem Other hyperlipidemia E78.4 Active confirmed 87663538 Problem Essential (primary) hypertension I10 Active conf irmed 86261241 Problem Renal mass N28.89 Active confirmed 417549133 Problem Osteoarthritis of right knee M17.9 Active confirme d 379191167 Problem Renal cancer, right C64.1 Active confirmed 989006386 Problem Renal neoplasm D49.519 Active confirmed 1268 61402 Problem Lung nodule seen on imaging study R91.1 Active confirmed 242281076 Problem History of kidney cancer Z85.528 Active confirmed 446460228 Problem 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 Active confirmed 747758101 Problem Other hyperlipidemia E78.49 Active confirmed 75091209 Problem Adrenal mass E27.9 Active confirmed 2403230 06 Problem Preop testing Z01.818 Active confirmed 14067 9001 Problem History of nephrectomy Z90.5 Active confirmed 91894686595361 Problem CKD (chronic kidney disease) stage 3, GFR 30-59 ml/min N18.3 Active confirmed 426350885 Problem Hyperuricemia E79.0 Active confirmed 920046 06 Problem 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 Active confirmed 543685970 Problem 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 Active confirmed 93742504 ALLERGIES Allergen (clinical drug ingredient) Drug/Non Drug Allergy do cumented on EMR Reaction Allergy Type Onset Date Status Sulfasalazine Sulfa Antibiotics Rash Drug Allergy Ac tive Crestor and Zocor hip pain Non Drug Allergy A ctive Glucosamine Shellfish-derived Products Hives Drug Allergy Active ENCOUNTERS from 1955 to 2020-12-22 Encounter Location Date Provider Diagnosis [facility] [address] [place] [address] Dec, Tamara Nassar Encounter for other preprocedural examin ation Z01.818 IMMUNIZATIONS Vaccine Route Administration Date Status COVID-19 [...] Information RESULTS No Results REASON FOR VISIT pre op TV appt MEDICAL (GENERAL) HISTORY Type Description Date Medical [...] Treatment Notes Treatm ent Clinical Notes Dec, Encounter for other preprocedural examination (I CD-10 - Z01.818) I discussed the risks vs. benefits of surgery with the patient in generic terms. I feel that she is at average risk for perioperative complications. She knows that there is always some risk with surgery and she has to be comfortable that, for [him/her], the benefits of surgery outweigh the risks in order to proceed. If she has further questions regarding the specifics of the proposed surgical procedure and specific risks, should discuss them with the surgeon. I feel that the patient's acute and chronic medical conditions are fully optimized at the present time. There are no readily alterable factors that could lower the patient's perioperative risk. EKG 12/21/20 - NSR 77 bpm Normal EKG See attached office visit 12/31/20 with recent labs and vitals signs. I have recommended the patient stop all medications as recommended by their surgeon and anesthesia. In addition I recommend benny she hold her Lisinopril on the morning of the procedure Treated with Leva juan josé for mild UTI symptoms last week. U/C grew 20,000 E.Coli. Symptoms resolved PLAN OF TREATMENT Treatment Notes Assessment Notes Clinical Notes Encounter for other preprocedural examination I discus sed the risks vs. benefits of surgery with the patient in generic terms. I feel that she is at average risk for perioperative complications. She knows that there is always some risk with surgery and she has to be comfortable that, for [him/her], the benefits of surgery outweigh the risks in order to proceed. If she has further questions regarding the specifics of the proposed surgical procedure and specific risks, should discuss them with the surgeon. I feel that the patient's acute and chronic medical conditions are fully optimized at the present time. There are no readily alterable factors that could lower the patient's perioperative risk.EKG 12/21/20 - NSR 77 bpm Normal EKGSee attached office visit 12/31/20 with recent labs and vitals signs.I have recommended the patient stop all medications as recommended by their surgeon and anesthesia. In addition I recommend benny she hold her Lisinopril on the morning of the procedureTreated with Leva juan josé for mild UTI symptoms last week. U/C grew 20,000 E.Coli. Symptoms resolved Next Appt Details prn Reason: Insurance Providers Payer Name Payer Address Payer Phone Insured Name Patient Relati onship to Insured Coverage Start Date Coverage End Date [facility] [address] [facility] [address] DMITRY [employer]M[place]
--- OUTSIDE RECORDS SUMMARY | 2020-12-24 07:26 | CCD ---
Author Author [facility] [facility] em[facility] Organization [facility] em[facility] Address Unknown Phone Unavailable Care Team Providers Care Hand Inserter Operator Name Role Phone Tamara Nassar Unavailable PROBLEMS Type Condition ICD9-CM Code VYW18-RR Code Onset Dates Condition S tatus W/U Status Risk SNOMED Code Notes Problem Essential (primary) hypertension I10 Active conf irmed 68609077 Problem GERD (gastroesophageal reflux disease) K21.9 A ctive confirmed 643312948 Problem Osteoarthritis of right knee M17.9 Active confirme d 567565996 Problem Other hyperlipidemia E78.4 Active confirmed 93206576 Problem Renal neoplasm D49.519 Active confirmed 1268 35771 Problem Renal mass N28.89 Active confirmed 506720074 Problem Adrenal mass E27.9 Active confirmed 6087380 06 Problem Lung nodule seen on imaging study R91.1 Active confirmed 445030088 Problem History of kidney cancer Z85.528 Active confirmed 131794295 Problem 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 Active confirmed 15752343 Problem History of nephrectomy Z90.5 Active confirmed 73418060605590 Problem Other hyperlipidemia E78.49 Active confirmed 22360295 Problem Renal cancer, right C64.1 Active confirmed 583771376 Problem 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 Active confirmed 508206061 Problem CKD (chronic kidney disease) stage 3, GFR 30-59 ml/min N18.3 Active confirmed 746274222 Problem Hyperuricemia E79.0 Active confirmed 218534 06 Problem 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 Active confirmed 673013944 ALLERGIES Allergen (clinical drug ingredient) Drug/Non Drug Allergy do cumented on EMR Reaction Allergy Type Onset Date Status clams Hives Non Drug Allergy Active Crestor and Zocor hip pain Non Drug Allergy A ctive Sulfa (for allergy use only) Rash Drug Allergy Active ENCOUNTERS from 1955 to 2020-12-04 Encounter Location Date Provider Diagnosis [facility] [address] [place] [address] Nov, Tamara Cesario CKD (chronic kidney disease) stage 3, GF R 30-59 ml/min N18.3 ; Other hyperlipidemia E78.49 ; Essential (primary) hypertension I10 ; History of kidney cancer Z85.528 ; Encounter for immunization Z23 and Colon cancer screening Z12.11 IMMUNIZATIONS Vaccine Route Administration Date Status COVID-19 [...] has it been since you last smoked? 3-6 months REASON FOR REFERRAL No Information VITAL SIGNS Weight 179.6 lbs Nov, Weight-kg 81.47 kg Nov, Height 66 in Nov, BMI 28.99 kg/m2 Nov, Heart Rate 82 /min Nov, Respiratory Rate 18 /min Nov, Temperature 976 degrees Fahrenheit Nov, Oximetry 96 Nov, Blood pressure systolic 124 mm Hg Nov, Blood pressure diastolic 66 mm Hg Nov, MEDICATIONS Medication SIG (Take, Route, Frequency, Duration) Notes Start Da te End Date Status Lisinopril 5 MG 1 tablet Orally Daily Jan, Active Coenzyme Q-10 100 MG 1 cap(s) p.o. once a day Active Flonase 50 MCG/ACT 1 spray in each nostril Once a day PRN Active ZyrTEC Allergy 10 MG 1 tablet Orally Once a day for 30 day(s) Active Loratadine 10 MG 1 tablet Once a day as needed PRN Active Pravastatin Sodium 20 MG 1 tablet Orally Once a day Active Allopurinol 100 MG 1 tablet Orally Once a day Active PROCEDURES from 1955 to 2020-12-04 Procedure Date Ordered Result Body Site Imm: Flublok Quadrivalent 18 years & older 0.5mL IM Influenza 25-11-27 N/A RESULTS No Results REASON FOR VISIT 6 month MEDICAL (GENERAL) HISTORY Type Description Date Medical [...] Notes Treatment Notes Treatm ent Clinical Notes Nov, CKD (chronic kidney disease) stage 3, GFR 30-59 ml/min (ICD-10 - N18.3) Nov, Other hyperlipidemia (ICD-10 - E78.49) ASCVD Risk = 7.7% - intolerant of high statins. Continue low dose Pravastatin for now, but will start more aggressive diet and excercise and recheck in a year Nov, Essential (primary) hypertension (ICD-10 - I10) Blood pressure is stable on meds. Continue current management. Attempt to follow DASH diet (lots of fruit, vegetable and low-fat dairy, low in saturated fat). Reduce salt to less than 2.4 grams/day. Engage in aerobic activities for 30 minutes on most days. Maintain a healthy weight. Limit alcohol intake to one drink a day Nov, History of kidney cancer (ICD-10 - Z85.528) Nov, Encounter for immunization (ICD-10 - Z23) Nov, Colon cancer screening (ICD-10 - Z12.11) PLAN OF TREATMENT Medication Medication Name Sig Start Date Stop Date Pravastatin Sodium 20 MG 1 tablet Orally Once a day Lisinopril 5 MG 1 tablet Orally Daily Jan, Treatment Notes Assessment Notes Clinical Notes Other hyperlipidemia ASCVD Risk = 7.7% - intolerant of high statins. Continue low dose Pravastatin for now, but will start more aggressive diet and excercise and recheck in a year Essential (primary) hypertension Blood p ressure is stable on meds. Continue current management. Attempt to follow DASH diet (lots of fruit, vegetable and low-fat dairy, low in saturated fat). Reduce salt to less than 2.4 grams/day. Engage in aerobic activities for 30 minutes on most days. Maintain a healthy weight. Limit alcohol intake to one drink a day Future Test Test Name Order Date CBC with Differential 20211110 Comprehensive Metabolic Profile (CMP) 20211110 FREE T4 & TSH PANEL 20211110 LIPID PANEL (CARDIAC RISK) 20211110 VITAMIN D 25-HYDROXY 20211110 Cologuard (Send Out Only) 20201201 Next Appt Details 1 Year for Welcome to Medicare, labs tom or Reason: Provider Name:Everardo Allison, 11:15:00 AM, [address], , [place], [address], Insurance Providers Payer Name Payer Address Payer Phone Insured Name Patient Relati onship to Insured Coverage Start Date Coverage End Date [facility] [address] [place] [address] DM[employer]RY [employer]ING
--- OUTSIDE RECORDS SUMMARY | 2020-12-24 07:26 | CCD ---
Author Author [facility] Organization [facility] Address Unknown Phone Unavailable Support Name Relationship Address Phone RETIRED Next Of Kin Unknown RE Next Of Kin Unknown Unavailable OPAL LOCO Next Of Kin Unknown [place] [place] [address] DMITRY HU Next Of Kin [address] [facility] [address] [place] [address] HUDMITRY VILCHIS ECON [address] [place] [address] HuBrinda vilchis ECON [address] [place] [address] Re-disclosure Warning The records that you are about to access may contain information from federally-assisted alcohol or drug abuse programs. If such information is present, then the following federally mandated warning applies: This information has been disclosed to you from records protected by federal confidentiality rules (42 CFR part 2). The federal rules prohibit you from making any further disclosure of this information unless further disclosure is expressly permitted by the written consent of the person to whom it pertains or as otherwise permitted by 42 CFR part 2. A general authorization for the release of medical or other information is NOT sufficient for this purpose. The Federal rules restrict any use of the information to criminally investigate or prosecute any alcohol or drug abuse patient.The records that you are about to access may contain highly sensitive health information, the redisclosure of which is protected by Article 27-F of the [place] State Public Health law. If you continue you may have access to information: Regarding HIV / AIDS; Provided by facilities licensed or operated by the [facility] Office of Mental Health; or Provided by the [facility] Office for People With Developmental Disabilities. If such information is present, then the following [facility] mandated warning applies: This information has been disclosed to you from confidential records which are protected by state law. State law prohibits you from making any further disclosure of this information without the specific written consent of the person to whom it pertains, or as otherwise permitted by law. Any unauthorized further disclosure in violation of state law may result in a fine or senior living sentence or both. A general authorization for the release of medical or other information is NOT sufficient authorization for further disc losure. Family History Family Member Name Family Member Gender Family Member Status Date o f Status Description Data Source(s) Unknown Male Problem MEDENT ([facility]) Unknown Unknown Problem MEDENT ([facility]) Unknown Unknown Problem MEDENT ([facility]) Encounters Encounter Providers Location Date Indications Data Source(s ) TeleMedicine Phone E/M by Kristin 21-30 Min [address] [place] [address] 12/22/2020 12:00:00 AM EDT eCW1 ([facility]) Unknown [address] [facility] [address] 12/21/2020 12:00:00 AM EDT [facility]CW1 ([facility]) Unknown [address] [facility] [address] 12/18/2020 12:00:00 AM EDT eCW1 ([facility]) Outpatient [address] [facility] [address] 12/18/2020 12:00:00 AM EDT eCW1 ([facility]) Unknown [address] [facility] [address] 12/08/2020 12:00:00 AM EDT eCW1 ([facility]) Unknown [address] [facility] [address] 12/04/2020 12:00:00 AM EDT eCW1 ([facility]) Outpatient [address] [facility] [address] 12/01/2020 12:00:00 AM EDT eCW1 ([facility]) Unknown [address] [facility] [address] 11/24/2020 12:00:00 AM EDT eCW1 ([facility]) [place] [address] [facility] [place] [address] 11/23/2020 12:00:00 AM EDT eCW1 ([facility]) [place] [address] [facility] [place] [address] 10/23/2020 12:00:00 AM EDT eCW1 ([facility]) [place] [address] [facility] [place] [address] 09/24/2020 12:00:00 AM EDT eCW1 ([facility]) [place] [address] [facility] [place] [address] 05/22/2020 12:00:00 AM EDT eCW1 ([facility]) [place] [address] [facility] [place] [address] 04/14/2020 12:00:00 AM EST eCW1 ([facility]) [place] [address] [facility] [place] [address] 02/14/2020 12:00:00 AM EST eCW1 ([facility]) [facility] [address] [facility] [place] [address] 01/28/2020 12:00:00 AM EST eCW1 ([facility]) [place] [address] [facility] [place] [address] 01/21/2020 12:00:00 AM EST eCW1 ([facility]) [place] [address] [facility] [place] [address] 12/25/2019 12:00:00 AM EDT eCW1 ([facility]) Immunizations Vaccine Date Status Description Data Source(s) influenza, recombinant, quadrIvalent,injectable, prese rvative free 12/01/2020 11:40:00 AM EDT completed eCW1 ([facility]) influenza, recombinant, quadrIvalent,injectable, prese rvative free 12/01/2020 11:40:00 AM EDT completed eCW1 ([facility]) influenza, recombinant, quadrIvalent,injectable, prese rvative free 12/01/2020 11:40:00 AM EDT completed eCW1 ([facility]) influenza, recombinant, quadrIvalent,injectable, prese rvative free 12/01/2020 11:40:00 AM EDT completed eCW1 ([facility]) influenza, recombinant, quadrIvalent,injectable, prese rvative free 12/01/2020 11:40:00 AM EDT completed eCW1 ([facility]) influenza, recombinant, quadrIvalent,injectable, prese rvative free 12/01/2020 11:40:00 AM EDT completed eCW1 ([facility]) influenza, recombinant, quadrIvalent,injectable, prese rvative free 12/01/2020 11:40:00 AM EDT completed eCW1 ([facility]) COVID-19 dose #2 given elsewhere Unspecified 06/11/2020 11:3 2:00 AM EDT completed eCW1 ([facility]) COVID-19 dose #2 given elsewhere Unspecified 06/11/2020 11:3 2:00 AM EDT completed eCW1 ([facility]) COVID-19 dose #2 given elsewhere Unspecified 06/11/2020 11:3 2:00 AM EDT completed eCW1 ([facility]) COVID-19 dose #2 given elsewhere Unspecified 06/11/2020 11:3 2:00 AM EDT completed eCW1 ([facility]) COVID-19 dose #2 given elsewhere Unspecified 06/11/2020 11:3 2:00 AM EDT completed eCW1 ([facility]) COVID-19 dose #2 given elsewhere Unspecified 06/11/2020 11:3 2:00 AM EDT completed eCW1 ([facility]) COVID-19 dose #2 given elsewhere Unspecified 06/11/2020 11:3 2:00 AM EDT completed eCW1 ([facility]) COVID-19 VACCINE Pfizer 06/05/2020 12:00:00 AM EDT completed [facility] Vaccine Series Complete: YESThis Data wa s Submitted to [facility] [place]. COVID-19 dose #1 given elsewhere Unspecified 05/21/2020 11:3 1:00 AM EDT completed eCW1 ([facility]) COVID-19 dose #1 given elsewhere Unspecified 05/21/2020 11:3 1:00 AM EDT completed eCW1 ([facility]) COVID-19 dose #1 given elsewhere Unspecified 05/21/2020 11:3 1:00 AM EDT completed eCW1 ([facility]) COVID-19 dose #1 given elsewhere Unspecified 05/21/2020 11:3 1:00 AM EDT completed eCW1 ([facility]) COVID-19 dose #1 given elsewhere Unspecified 05/21/2020 11:3 1:00 AM EDT completed eCW1 ([facility]) COVID-19 dose #1 given elsewhere Unspecified 05/21/2020 11:3 1:00 AM EDT completed eCW1 ([facility]) COVID-19 dose #1 given elsewhere Unspecified 05/21/2020 11:3 1:00 AM EDT completed eCW1 ([facility]) COVID-19 VACCINE Pfizer 05/15/2020 12:00:00 AM EST completed [facility] Vaccine Series Complete: NOThis Data was Submitted to [facility] [place]. Medications Medication Brand Name Start Date Product Form Dose Route Admi nistrative Instructions Pharmacy Instructions Status Indications Reaction Description Data Source(s) doxycycline hyclate 100 MG Oral Tablet Doxycycline Hyc late 100 MG Doxycycline Hyclate 100 MG 10/23/2020 12:00:00 AM EDT 2.0 {tablets} active Doxycycline Hyclate 100 MG eCW1 (Replaced By [facility]) doxycycline hyclate 100 MG Oral Tablet Doxycycline Hyc late 100 MG Doxycycline Hyclate 100 MG 10/23/2020 12:00:00 AM EDT 2.0 {tablets} active Doxycycline Hyclate 100 MG eCW1 (Replaced By [facility]) doxycycline hyclate 100 MG Oral Tablet Doxycycline Hyc late 100 MG Doxycycline Hyclate 100 MG 10/23/2020 12:00:00 AM EDT 2.0 {tablets} active Doxycycline Hyclate 100 MG eCW1 (Replaced By [facility]) Insurance Providers Payer name Policy type / Coverage type Policy ID Covered constitution party ID Covered constitution party's relationship to martínez Policy Martínez Plan Information BS [place] Medigap Part B [id number] Self Z [id number] BS [place] Commercial [id number] Self Y [id number] [facility] Part B [id number] EXCELLUS C [id number] Self [id number] [place] P[place] 302/307 [id number] SP [id number] [place]/307 [id number] SP [id number] [facility] [id number] [place]/307 [id number] SP [id number] [facility] [id number] 2 [id number] [place] P[place]/307 [id number] SP [id number] U [id number] Spouse [id number] FOR LIFE U [id number] Self [id number] U [id number] Spouse [id number] [facility] [id number] [facility] [id number] ANSI-Commercial [id number] ANSI-Commercial [id number] ANSI-Not a Secondary Insurance [id number] ANSI-Commercial [id number] ANSI-Not a Secondary Insurance [id number] EXCELLUS BCBS B [id number] S [id number] FOR LIFE O [id number] S [id number] ANSI-Not a Secondary Insurance [id number] ANSI-Commercial [id number] Corporate Health Ins [facility] Part B [id number] Self [id number] For Life WPS [facility] Part B [id number] Family Dependent [id number] BCBS[employer] Commercial [id number] Self [id number] [place] [id number] 2 [id number] [place] O [id number] S [id number] [place] [place] [id number] HU2 [id number] [place] [place] [id number] 2 [id number] [place] PPO 302/307 [id number] SP [id number] [place] O [id number] S [id number] EXCELLUS BCBS B [id number] S [id number] For Life WPS Medigap Part B [id number] Family Depende nt BCBS[employer] Commercial [id number] Self BCBS [place] PPO 302/307 [id number] SP [id number] BLUE [employer]OSS BLUE [facility] [id number] 18 [id number] [place] [facility] [id number] HU2 [id number] BLUE CROSS BLUE SHIELD-O/P [id number] 18 [id number] FOR LIFE [id number] [facility] [id number] [facility] [id number] 2 [id number] FOR LIFE [id number] [place]BS [place] PPO 302/307 [id number] SP [id number] HUMA[employer] [place] O [id number] S [id number] ANSI-Not a Secondary Insurance [id number] [facility] [id number] Family Dependent [id number] ANSI-Not a Secondary Insurance [id number] ANSI-Not a Secondary Insurance [id number] [facility] [id number] Family Dependent [id number] ANSI-Not a Secondary Insurance [id number] BCBS [place] PPO 302/307 [id number] SP [id number] ANSI-Not a Secondary Insurance [id number] Problems, Conditions, and Diagnoses Code Display Name Description Problem Type Effective Dates Data Source(s) Z01.818 Pre-procedure evaluation check Preop testing Problem 12/18/2020 12:00:00 AM EDT eCW1 (Replaced By [facility]) Surgeries/Procedures Procedure Description Date Indications Data Source(s) Imm: Flublok Quadrivalent 18 years & older 0.5mL IM Influenz a 12/01/2020 12:00:00 AM EDT eCW1 ([facility]) Results ID Date Data Source WWBC DIGITAL / DMITRIY BILATERAL MAMMO SCREENING (Ultraso und if indicated) 09/24/2020 12:00:00 AM EDT eCW1 (Replaced By [facility]) Name Value Range Interpretation Code Description Data Eloisa rce(s) Supporting Document(s) WWBC DIGITAL / DMITRIY BILAT ERAL MAMMO SCREENING (Ultrasound if indicated) eCW1 (Replaced By [facility]) Procedure Social History Code Duration Value Status Description Data Source(s ) Smoking 12/22/2020 12:00:00 AM EDT Former Smoker completed Former Smoker eCW1 (Replaced By [facility]) Smoking 12/22/2020 12:00:00 AM EDT Former Smoker completed Former Smoker eCW1 (Replaced By [facility]) Smoking 12/22/2020 12:00:00 AM EDT Former Smoker completed Former Smoker eCW1 (Replaced By [facility]) Smoking 12/22/2020 12:00:00 AM EDT Former Smoker completed Former Smoker eCW1 (Replaced By [facility]) Smoking 12/22/2020 12:00:00 AM EDT Former Smoker completed Former Smoker eCW1 (Replaced By [facility]) Smoking 12/01/2020 12:00:00 AM EDT Former Smoker completed Former Smoker eCW1 (Replaced By [facility]) Smoking 12/01/2020 12:00:00 AM EDT Former Smoker completed Former Smoker eCW1 (Replaced By [facility]) Smoking 09/24/2020 12:00:00 AM EDT Former Smoker completed Former Smoker eCW1 (Replaced By [facility]) Smoking 09/24/2020 12:00:00 AM EDT Former Smoker completed Former Smoker eCW1 (Replaced By [facility]) Smoking 09/24/2020 12:00:00 AM EDT Former Smoker completed Former Smoker eCW1 (Replaced By [facility]) Smoking 09/24/2020 12:00:00 AM EDT Former Smoker completed Former Smoker eCW1 (Replaced By [facility]) Smoking 02/14/2020 12:00:00 AM EST Former Smoker completed Former Smoker eCW1 (Replaced By [facility]) Smoking 02/14/2020 12:00:00 AM EST Former Smoker completed Former Smoker eCW1 (Replaced By [facility]) Smoking 02/14/2020 12:00:00 AM EST Former Smoker completed Former Smoker eCW1 (Replaced By [facility]) Smoking 01/21/2020 12:00:00 AM EST Former Smoker completed Former Smoker eCW1 (Replaced By [facility]) Smoking 01/21/2020 12:00:00 AM EST Former Smoker completed Former Smoker eCW1 (Replaced By [facility]) Vital Signs ID Date Data Source UNK Name Value Range Interpretation Code Description Data Source(s) Body height 66 [in_i] 66 [in_i] eCW1 ([facility]) Body mass index (BMI) [Ratio] 29.05 kg/m2 29.05 kg/m2 eCW1 (Replaced By [facility]) Body weight 180 [lb_av] 180 [lb_av] eCW1 ([facility]) Body weight 81.65 kg 81.65 kg eCW1 ([facility]) Heart rate 86 /min 86 /min eCW1 ([facility]) Respiratory rate 18 /min 18 /min eCW1 ([facility]) Body temperature 97.6 [degF] 97.6 [degF] eCW1 ( Replaced By [facility]) Systolic blood pressure 120 mm[Hg] 120 mm[Hg] e CW1 (Replaced By [facility]) Diastolic blood pressure 84 mm[Hg] 84 mm[Hg] eCW1 (Replaced By [facility]) Body weight 179.6 [lb_av] 179.6 [lb_av] eCW1 ([facility]) Body weight 81.47 kg 81.47 kg eCW1 ([facility]) Body height 66 [in_i] 66 [in_i] eCW1 ([facility]) Body mass index (BMI) [Ratio] 28.99 kg/m2 28.99 kg/m2 eCW1 (Replaced By [facility]) Heart rate 82 /min 82 /min eCW1 ([facility]) Respiratory rate 18 /min 18 /min eCW1 ([facility]) Body temperature 976 [degF] 976 [degF] eCW1 ([facility]) Systolic blood pressure 124 mm[Hg] 124 mm[Hg] e CW1 (Replaced By [facility]) Diastolic blood pressure 66 mm[Hg] 66 mm[Hg] eCW1 (Replaced By [facility]) Body weight 181.9 [lb_av] 181.9 [lb_av] eCW1 ([facility]) Body height 66 [in_i] 66 [in_i] eCW1 ([facility]) Body mass index (BMI) [Ratio] 29.36 kg/m2 29.36 kg/m2 eCW1 (Replaced By [facility]) Systolic blood pressure 120 mm[Hg] 120 mm[Hg] e CW1 (Replaced By [facility]) Diastolic blood pressure 72 mm[Hg] 72 mm[Hg] eCW1 (Replaced By [facility]) Body weight 178.6 [lb_av] 178.6 [lb_av] eCW1 ([facility]) Respiratory rate 18 /min 18 /min eCW1 ([facility]) Body temperature 96.5 [degF] 96.5 [degF] eCW1 ( Replaced By [facility]) Systolic blood pressure 121 mm[Hg] 121 mm[Hg] e CW1 (Replaced By [facility]) Diastolic blood pressure 73 mm[Hg] 73 mm[Hg] eCW1 (Replaced By [facility]) Body height 66 [in_i] 66 [in_i] eCW1 ([facility]) Body mass index (BMI) [Ratio] 28.82 kg/m2 28.82 kg/m2 eCW1 (Replaced By [facility]) Heart rate 68 /min 68 /min eCW1 ([facility]) Body weight 177.2 [lb_av] 177.2 [lb_av] eCW1 ([facility]) Body height 66 [in_i] 66 [in_i] eCW1 ([facility]) Body mass index (BMI) [Ratio] 28.60 kg/m2 28.60 kg/m2 eCW1 (Replaced By [facility]) Heart rate 93 /min 93 /min eCW1 ([facility]) Respiratory rate 18 /min 18 /min eCW1 ([facility]) Body temperature 97.9 [degF] 97.9 [degF] eCW1 ( Replaced By [facility]) Systolic blood pressure 130 mm[Hg] 130 mm[Hg] e CW1 (Replaced By [facility]) Diastolic blood pressure 80 mm[Hg] 80 mm[Hg] eCW1 (Replaced By [facility]) Patient Treatment Plan of Care Planned Activity Planned Date Details Description Data Source (s) doxycycline hyclate 100 MG Oral Tablet 10/23/2020 12:00:00 AM EDT eCW1 (Replaced By [facility]) doxycycline hyclate 100 MG Oral Tablet 10/23/2020 12:00:00 AM EDT eCW1 (Replaced By [facility]) doxycycline hyclate 100 MG Oral Tablet 10/23/2020 12:00:00 AM EDT eCW1 (Replaced By [facility])
--- OUTSIDE RECORDS SUMMARY | 2020-12-24 07:26 | CCD ---
Author Author [facility] Organization [facility] Address Unknown Phone Unavailable Care Team Providers Care Cleaning Associate Name Role Phone Tamara Nassar Unavailable PROBLEMS Type Condition ICD9-CM Code UZW24-FM Code Onset Dates Condition S tatus W/U Status Risk SNOMED Code Notes Problem Essential (primary) hypertension I10 Active conf irmed [id number] Problem GERD (gastroesophageal reflux disease) K21.9 A ctive confirmed 453713578 Problem Osteoarthritis of right knee M17.9 Active confirme d 828717925 Problem Other hyperlipidemia E78.4 Active confirmed 74075369 Problem Renal neoplasm D49.519 Active confirmed 1268 49998 Problem Renal mass N28.89 Active confirmed 843359424 Problem Adrenal mass E27.9 Active confirmed 6125965 06 Problem Lung nodule seen on imaging study R91.1 Active confirmed 204740235 Problem History of kidney cancer Z85.528 Active confirmed 453857634 Problem 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 Active confirmed 39972516 Problem History of nephrectomy Z90.5 Active confirmed 07687661394492 Problem Other hyperlipidemia E78.49 Active confirmed 98867841 Problem Renal cancer, right C64.1 Active confirmed 464383743 Problem 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 Active confirmed 332092275 Problem CKD (chronic kidney disease) stage 3, GFR 30-59 ml/min N18.3 Active confirmed 845585866 Problem Hyperuricemia E79.0 Active confirmed 433813 06 Problem 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 Active confirmed 741551334 ALLERGIES Allergen (clinical drug ingredient) Drug/Non Drug Allergy do cumented on EMR Reaction Allergy Type Onset Date Status clams Hives Non Drug Allergy Active Crestor and Zocor hip pain Non Drug Allergy A ctive Sulfa (for allergy use only) Rash Drug Allergy Active ENCOUNTERS from 1955 to 2020-12-09 Encounter Location Date Provider Diagnosis [facility] [place] [address] [place] [address] Dec, 2020 Tamara Nassar IMMUNIZATIONS Vaccine Route Administration Date Status Influenza 18 yrs & older Flublok IM Intramuscular Dec 01, 2020 Administered COVID-19 dose #2 given elsewhere Unspecified Unknown [...] tablet Orally Once a day Active PROCEDURES No Information RESULTS No Results REASON FOR VISIT [facility] MEDICAL (GENERAL) HISTORY Type Description Date Medical [...] Information ASSESSMENTS No Information PLAN OF TREATMENT Medication Medication Name Sig Start Date Stop Date Pravastatin Sodium 20 MG 1 tablet Orally Once a day Lisinopril 5 MG 1 tablet Orally Daily Jan, Next Appt Details Provider Name:Everardo Allison, 2020-12- 11:15:00 AM, [address], , [place], [address], Insurance Providers Payer Name Payer Address Payer Phone Insured Name Patient Relati onship to Insured Coverage Start Date Coverage End Date [facility] [id number] [place] [id number] [place]
--- OUTSIDE RECORDS SUMMARY | 2020-12-24 07:26 | CCD ---
Author Author [employer] Organization [facility] Sy[employer] ems Address Unknown Phone Unavailable Care Team Providers Care Treatment Plant Mechanic Name Role Phone Tamara Nassar Unavailable PROBLEMS Type Condition ICD9-CM Code [id number] Code Onset Dates Condition S tatus W/U Status Risk SNOMED Code Notes Problem GERD (gastroesophageal reflux disease) K21.9 A ctive confirmed 513895482 Problem Other hyperlipidemia E78.4 Active confirmed 30078742 Problem Essential (primary) hypertension I10 Active conf irmed 88482671 Problem Renal mass N28.89 Active confirmed 148105882 Problem Osteoarthritis of right knee M17.9 Active confirme d 038446753 Problem Renal cancer, right C64.1 Active confirmed 494881705 Problem Renal neoplasm D49.519 Active confirmed 1268 97180 Problem Lung nodule seen on imaging study R91.1 Active confirmed 944818621 Problem History of kidney cancer Z85.528 Active confirmed 712303277 Problem History of renal cell cancer Z85.528 Active confirm ed 799220891 Problem 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 Active confirmed 09846242 Problem Adrenal mass E27.9 Active confirmed 1678211 06 Problem Other hyperlipidemia E78.49 Active confirmed 18360630 Problem History of nephrectomy Z90.5 Active confirmed 99677451769091 Problem 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 Active confirmed 320644095 Problem CKD (chronic kidney disease) stage 3, GFR 30-59 ml/min N18.3 Active confirmed 489604629 Problem Hyperuricemia E79.0 Active confirmed 232557 06 Problem 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 Active confirmed 594197729 ALLERGIES Allergen (clinical drug ingredient) Drug/Non Drug Allergy do cumented on EMR Reaction Allergy Type Onset Date Status clams Hives Non Drug Allergy Active Crestor and Zocor hip pain Non Drug Allergy A ctive Sulfa (for allergy use only) Rash Drug Allergy Active ENCOUNTERS from 1955 to 2020-10-23 Encounter Location Date Provider Diagnosis [facility] [address] [phone] Oct, Tamara Nassar IMMUNIZATIONS Vaccine Route Administration Date Status Influenza Pharmacy Given Unknown Feb 16, 2018 [...] Notes Start Da te End Date Status Loratadine 10 MG 1 tablet Once a day as needed PRN Active Coenzyme Q-10 100 MG 1 cap(s) p.o. once a day Active Flonase 50 MCG/ACT 1 spray in each nostril Once a day PRN Active Pravastatin Sodium 20 MG 1 tablet Orally Once a day Active Vitamin B12 100 MCG as directed Orally Active Allopurinol 100 MG 1 tablet Orally Once a day Active Iron 28 MG 1 tablet Orally Once a day for 30 day(s) Active ZyrTEC Allergy 10 MG 1 tablet Orally Once a day for 30 day(s) Active Doxycycline Hyclate 100 MG 2 tablets Orally Once a day for 1 day s Oct, Active Lisinopril 5 MG 1 tablet Orally Daily Jan, Active PROCEDURES No Information RESULTS No Results REASON FOR VISIT tick bite MEDICAL (GENERAL) HISTORY Type Description Date Medical [...] CT 06/2017 Medical History adrenal gland cancer Surgical History tubal ligation Surgical History knee [...] Medication Name Sig Start Date Stop Date Doxycycline Hyclate 100 MG 2 tablets Orally Once a day for 1 day s Oct, Next Appt Details Provider Name:Everardo Allison, 10:30:00 AM, [address], , [place], [address], Provider Name:Tamara Nassar, 2020-11 11:30:00 AM, [address] , , [place], [address], Insurance Providers Payer Name Payer Address Payer Phone Insured Name Patient Relati onship to Insured Coverage Start Date Coverage End Date [facility] [address] HEIDYRE[facility]ACED BY [facility] [id number] DMITRY [place]
--- OUTSIDE RECORDS SUMMARY | 2020-12-24 07:26 | CCD ---
Author Author [employer] em[employer] Organization [facility] [employer] ems Address Unknown Phone Unavailable Care Team Providers Care Qa Internship Name Role Phone Tamara Nassar Unavailable PROBLEMS Type Condition ICD9-CM Code [id number] Code Onset Dates Condition S tatus W/U Status Risk SNOMED Code Notes Problem Essential (primary) hypertension I10 Active conf irmed 70134598 Problem GERD (gastroesophageal reflux disease) K21.9 A ctive confirmed 135695625 Problem Osteoarthritis of right knee M17.9 Active confirme d 426233761 Problem Other hyperlipidemia E78.4 Active confirmed 03504543 Problem Renal neoplasm D49.519 Active confirmed 1268 65271 Problem Renal mass N28.89 Active confirmed 204317536 Problem Adrenal mass E27.9 Active confirmed 9186038 06 Problem Lung nodule seen on imaging study R91.1 Active confirmed 161491657 Problem History of kidney cancer Z85.528 Active confirmed 121680448 Problem 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 Active confirmed 59022153 Problem History of nephrectomy Z90.5 Active confirmed 39336010979505 Problem Other hyperlipidemia E78.49 Active confirmed 78379811 Problem Renal cancer, right C64.1 Active confirmed 844045426 Problem 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 Active confirmed 554431810 Problem CKD (chronic kidney disease) stage 3, GFR 30-59 ml/min N18.3 Active confirmed 520091609 Problem Hyperuricemia E79.0 Active confirmed 846706 06 Problem 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 Active confirmed 607772460 ALLERGIES Allergen (clinical drug ingredient) Drug/Non Drug Allergy do cumented on EMR Reaction Allergy Type Onset Date Status clams Hives Non Drug Allergy Active Crestor and Zocor hip pain Non Drug Allergy A ctive Sulfa (for allergy use only) Rash Drug Allergy Active ENCOUNTERS from 1955 to 2020-11-27 Encounter Location Date Provider Diagnosis [facility] [address] [place] [phone] Nov, Tamara Cesario History of nephrectomy Z90.5 ; Essential (primary) hypertension I10 ; Stage 3a chronic kidney disease N18.31 ; Other hyperlipidemia E78.4 and History of kidney cancer Z85.528 IMMUNIZATIONS Vaccine Route Administration Date Status Influenza [...] Information RESULTS No Results REASON FOR VISIT labs before appt? MEDICAL (GENERAL) HISTORY Type Description Date Medical [...] Treatment Notes Treatm ent Clinical Notes Nov, History of nephrectomy (ICD-10 - Z90.5) Nov, Essential (primary) hypertension (ICD-10 - I10) Nov, Stage 3a chronic kidney disease (ICD-10 - N18.31 ) Nov, Other hyperlipidemia (ICD-10 - E78.4) Nov, History of kidney cancer (ICD-10 - Z85.528) PLAN OF TREATMENT Medication Medication Name Sig Start Date Stop Date Doxycycline Hyclate 100 MG 2 tablets Orally Once a day for 1 day s Oct, Future Test Test Name Order Date CBC - Complete Blood Count [id number] Comprehensive Metabolic Profile (CMP) [id number] LIPID PANEL (CARDIAC RISK) [id number] FREE T4 & TSH PANEL [id number] Next Appt Details Provider Name:Tamara Nassar, 2020-11 11:30:00 AM, [address], , [place], [address], Provider Name:Everardo Allison, 11:15:00 AM, [address], , [place], [address], Insurance Providers Payer Name Payer Address Payer Phone Insured Name Patient Relati onship to Insured Coverage Start Date Coverage End Date [facility] INS[facility] [address] [facility] [id number] [employer] [place]
--- OUTSIDE RECORDS SUMMARY | 2020-12-24 07:26 | CCD ---
Author Author [employer] [facility] [employer] Organization [facility] Syst ems Address Unknown Phone Unavailable Care Team Providers Care Senior Clinical Data Manager Name Role Phone Everardo Allison Unavailable PROBLEMS Type Condition ICD9-CM Code RKT06-GX Code Onset Dates Condition S tatus W/U Status Risk SNOMED Code Notes Problem GERD (gastroesophageal reflux disease) K21.9 A ctive confirmed 265868557 Problem Other hyperlipidemia E78.4 Active confirmed 52888153 Problem Essential (primary) hypertension I10 Active conf irmed 68894766 Problem Renal mass N28.89 Active confirmed 302661421 Problem Osteoarthritis of right knee M17.9 Active confirme d 837132021 Problem Renal cancer, right C64.1 Active confirmed 369570006 Problem Renal neoplasm D49.519 Active confirmed 1268 11494 Problem Lung nodule seen on imaging study R91.1 Active confirmed 981576818 Problem History of kidney cancer Z85.528 Active confirmed 892992530 Problem History of renal cell cancer Z85.528 Active confirm ed 968477545 Problem 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 Active confirmed 39771221 Problem Adrenal mass E27.9 Active confirmed 3168492 06 Problem Other hyperlipidemia E78.49 Active confirmed 82502975 Problem History of nephrectomy Z90.5 Active confirmed 30647669476947 Problem 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 Active confirmed 618245932 Problem CKD (chronic kidney disease) stage 3, GFR 30-59 ml/min N18.3 Active confirmed 725783825 Problem Hyperuricemia E79.0 Active confirmed 016646 06 Problem 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 Active confirmed 177484901 ALLERGIES Allergen (clinical drug ingredient) Drug/Non Drug Allergy do cumented on EMR Reaction Allergy Type Onset Date Status clams Hives Non Drug Allergy Active Crestor and Zocor hip pain Non Drug Allergy A ctive Sulfa (for allergy use only) Rash Drug Allergy Active ENCOUNTERS from 1955 to 2020-11-24 Encounter Location Date Provider Diagnosis [facility] [address] [phone] [place] [address] Nov, Everardo Allison IMMUNIZATIONS Vaccine Route Administration Date Status Influenza [...] Information RESULTS No Results REASON FOR VISIT bmp order MEDICAL (GENERAL) HISTORY Type Description Date Medical [...] day s Oct, Next Appt Details Provider Name:Tamara Nassar, 2020-11 11:30:00 AM, [address] , , [place], [address], Provider Name:Everardo Allison, 11:15:00 AM, [address], , [place], [address], Insurance Providers Payer Name Payer Address Payer Phone Insured Name Patient Relati onship to Insured Coverage Start Date Coverage End Date [facility] INSURANCE [address] [facility] [id number] DMITRY [place]
--- OUTSIDE RECORDS SUMMARY | 2020-12-24 07:26 | CCD ---
Author Author [employer] [facility] em[facility] Organization [facility] Syst ems Address Unknown Phone Unavailable Care Team Providers Care Cad Technician Name Role Phone Criss Ibarra Unavailable PROBLEMS Type Condition ICD9-CM Code VDR80-NP Code Onset Dates Condition S tatus W/U Status Risk SNOMED Code Notes Problem GERD (gastroesophageal reflux disease) K21.9 A ctive confirmed 641862651 Problem Other hyperlipidemia E78.4 Active confirmed 23154385 Problem Essential (primary) hypertension I10 Active conf irmed 86004237 Problem Renal mass N28.89 Active confirmed 474057644 Problem Osteoarthritis of right knee M17.9 Active confirme d 319781918 Problem Renal cancer, right C64.1 Active confirmed 658814900 Problem Renal neoplasm D49.519 Active confirmed 1268 40657 Problem Lung nodule seen on imaging study R91.1 Active confirmed 306379643 Problem History of kidney cancer Z85.528 Active confirmed 394475618 Problem History of renal cell cancer Z85.528 Active confirm ed 859627610 Problem 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 Active confirmed 61725267 Problem Adrenal mass E27.9 Active confirmed 1467246 06 Problem Other hyperlipidemia E78.49 Active confirmed 90837914 Problem History of nephrectomy Z90.5 Active confirmed 86110896505483 Problem 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 Active confirmed 927295643 Problem CKD (chronic kidney disease) stage 3, GFR 30-59 ml/min N18.3 Active confirmed 538131796 Problem Hyperuricemia E79.0 Active confirmed 652913 06 Problem 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 Active confirmed 182787072 ALLERGIES Allergen (clinical drug ingredient) Drug/Non Drug Allergy do cumented on EMR Reaction Allergy Type Onset Date Status clams Hives Non Drug Allergy Active Crestor and Zocor hip pain Non Drug Allergy A ctive Sulfa (for allergy use only) Rash Drug Allergy Active ENCOUNTERS from 1955 to 2020-09-25 Encounter Location Date Provider Diagnosis [facility] [address] [phone] [place] [address] Sep, Criss Ibarra Routine gynecologica l examination Z01.419 ; Breast cancer screening by mammogram Z12.31 ; Postmenopausal status Z78.0 and Cervical cancer screening Z12.4 IMMUNIZATIONS Vaccine Route Administration Date Status Influenza [...] FOR REFERRAL No Information VITAL SIGNS Weight 181.9 lbs Sep, Height 66 in Sep, BMI 29.36 kg/m2 Sep, Blood pressure systolic 120 mm Hg Sep, Blood pressure diastolic 72 mm Hg Sep, MEDICATIONS Medication SIG (Take, Route, Frequency, Duration) Notes Start Da te End Date Status Loratadine 10 MG 1 tablet Once a day as needed Active Flonase 50 MCG/ACT 1 spray in each nostril Once a day Active Lisinopril 5 MG 1 tablet Orally Daily Jan, Active Pravastatin Sodium 20 MG 1 tablet Orally Once a day Active Coenzyme Q-10 100 MG 1 cap(s) p.o. once a day Active Iron 28 MG 1 tablet Orally Once a day for 30 day(s) Active ZyrTEC Allergy 10 MG 1 tablet Orally Once a day for 30 day(s) Active Vitamin B12 100 MCG as directed Orally Active Allopurinol 100 MG 1 tablet Orally Once a day Active PROCEDURES No Information RESULTS Component Value Reference Range WWBC DIGITAL / DMITRIY BILATERAL MAMMO SCRE ENING (Ultrasound if indicated) Reviewed date:09/24/2020 12:28:28 Interpretation:Negative Performing Lab:[facility],[address]], ,[place] [id number] REASON FOR VISIT ANNUAL/MAMMO MEDICAL (GENERAL) HISTORY Type Description Date Medical [...] Notes Treatment Notes Treatm ent Clinical Notes Sep, Routine gynecological examination (ICD-10 - Z01. 419) Pt to report any episodes of pmb or pelvic pain. Advise regular physical activity including weight bearing exercise most days of the week. Reviewed calcium rich foods. Sep, Breast cancer screening by mammogram (ICD-10 - Z 12.31) Reviewed screening intervals with mammography, recommend annual screening until age 75. Reviewed breast awareness, know what is normal for you so that you can detect any changes in the breasts, check breasts regularly, in a routine that you are comfortable with. Sep, Postmenopausal status (ICD-10 - Z78.0) Sep, Cervical cancer screening (ICD-10 - Z12.4) Reviewed ASCCP guidelines for pap screening and frequency, reviewed utility of HPV testing as well and when next pap will be due PLAN OF TREATMENT Treatment Notes Assessment Notes Clinical Notes Routine gynecological examination Pt to report any episodes of pmb or pelvic pain. Advise regular physical activity including weight bearing exercise most days of the week. Reviewed calcium rich foods. Breast cancer screening by mammogram Rev iewed screening intervals with mammography, recommend annual screening until age 75. Reviewed breast awareness, know what is normal for you so that you can detect any changes in the breasts, check breasts regularly, in a routine that you are comfortable with. Cervical cancer screening Reviewed ASCCP guidelines for pap screening and frequency, reviewed utility of HPV testing as well and when next pap will be due Treatment Notes Test Name Order Date PAP REQUEST FOR SERVICE 2020-09-24 Next Appt Details 1 Year Reason:annual/mammo Provider Name:Everardo Allison, 10:30:00 AM, [address], , [place], [address], Provider Name:Tamara Nassar, 2020-11 11:30:00 AM, [address] [address], , [place], [address], Follow Up:1 Yearannual/mammo Insurance Providers Payer Name Payer Address Payer Phone Insured Name Patient Relati onship to Insured Coverage Start Date Coverage End Date [facility] INSURANCE [address] [place] [id number] [employer] [place]
[2020-12-24] MEDS ORDERED: MANNITOL 25% 12.5 GM/50 ML VIAL (J2150) As Ordered ONE (11:05)
[2020-12-24] MEDS ORDERED: GLYCOPYRROLATE INJ 0.2 MG/ML 2 ML VIAL As Ordered ONE (11:08)
[2020-12-24] MEDS ORDERED: HYDROmorphone HCL 2 MG/ML 1ML VIAL As Ordered ONE (11:10)
[2020-12-24] MEDS ORDERED: SUGAMMADEX SODIUM 500 MG/5 ML VIAL (BRIDION) As Ordered ONE (14:55)
[2020-12-24] MEDS ORDERED: PERCOCET 5MG/325MG TAB PO PRN (15:35)
[2020-12-24] MEDS ORDERED: NS 1,000 ML IV SCH (15:35)
[2020-12-24] MEDS ORDERED: MORPHINE 2 MG/ML 1ML VIAL (J2270) IV PRN (15:35)
[2020-12-24] MEDS ORDERED: LR 1,000 ML IV SCH (15:50)
[2020-12-24] MEDS: fentaNYL 100 MCG/2 ML INJECTION (J3010) IV PRN ×4 (15:54→16:21)
[2020-12-24 15:59] LABS: HEMATOCRIT 41.7 % (36.0-47.0); HEMOGLOBIN 13.7 g/dl (12.0-15.5); MEAN CORPUSCULAR HEMOGLOBIN 32.2 pg (27.0-33.0); MEAN CORPUSCULAR HGB CONC 32.9 g/dl (32.0-36.5); MEAN CORPUSCULAR VOLUME 98.1 fl (80.0-96.0); PLATELET COUNT, AUTOMATED 250 10^3/uL (150-450); RED BLOOD COUNT 4.25 10^6/uL (4.00-5.40); WHITE BLOOD COUNT 12.9 10^3/uL (4.0-10.0)
[2020-12-24] MEDS: oxyCODONE 5MG TAB PO PRN ×2 (16:04→16:37)
[2020-12-24 16:30] LABS: CALCIUM LEVEL 8.7 MG/DL (8.8-10.2); CREATININE FOR GFR 1.4 MG/DL (0.55-1.30); GLOMERULAR FILTRATION RATE 40.3 (>45); POTASSIUM SERUM 4.5 MEQ/L (3.5-5.1)
--- NOTE | 2020-12-24 17:12 | ROOPDOC ---
[facility] Report Of Operation Report of Operation DATE OF PROCEDURE: 12/24/20 PREPROCEDURE DIAGNOSIS: Left renal neoplasm. POSTPROCEDURE DIAGNOSIS: Left renal neoplasm. PROCEDURE: Left robotic-assisted laparoscopic partial nephrectomy, left renal exploration, intraoperative ultrasound for tumor mapping. 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 She was recently found to have 2 new enhancing lesions on the left kidney, both concerning for malignancy. One was approximately 1.2cm and the other was approximately 3cm. She was brought to the operating room today for the above procedure for treatment. DESCRIPTION OF PROCEDURE: The patient was brought to the operating room where general anesthesia was induced. Prophylactic antibiotics were infused. A Goldsmith catheter was inserted into the bladder under sterile conditions and the balloon was filled with sterile water. She was then placed in the right lateral decubitus position. All pressure points were appropriately padded and an axillary roll was placed. We then secured the patient to the table with tape. Her abdomen was then prepped and draped in the usual sterile fashion. Next, an 8mm incision was made in line with the 11th rib along the lateral border of the rectus. Pneumoperitoneum was achieved with a Veress needle. Next, an 8mm port was placed for the camera. At this point, the left robotic port was placed off the costal margin. Two right hand robotic ports were then placed with one between the anterior superior iliac spine and the hip and the other one just caudal to the camera port. Last the 12 mm salon shampoo assistant port was placed inferior and medial to the camera port. The robot was then docked. The spleen was then dissected off of Gerota's fascia. Next the left colon was dissected off of Gerota's fascia. At this point the left gonadal vein was iden tified and it was traced cephalad to its insertion into the left renal vein. This was carefully dissected and just inferior to the renal vein, the left renal artery was identified. This was also carefully dissected. Gerota's fascia was then opened and I defatted the kidney. On the superior and lateral aspect of the kidney the smaller tumor was identified. It was partly exophytic. On the inferior and lateral aspect, the larger tumor was seen. It too was partly exophytic. The kidney was then mobilized. Ultrasound was utilized to santos the boundaries of both masses. Next the smaller mass was resected without clamping the artery. It appeared that the mass was completely resected. Once this was done, the renorrhaphy was performed first by ligating all vessels in the base of resection with a #2-0 vicryl suture using figure of eight stitches. The capsule of the kidney was then reapproximated using #0-vicryl suture with Weck clips to cinch down the suture. I then had our purchasing manager administer 12.5g of mannitol. Next 2 bulldog clamps were placed on the renal artery prior to resecting the larger mass. The larger inferior pole mass was resected completely and it appeared that we had a good margin. Once the mass was removed, the renorrhaphy was performed first by ligating all vessels in the base of resection with a #2-0 vicryl suture using figure of eight stitches. The capsule of the kidney was then reapproximated using #0-vicryl suture with Weck clips to cinch down the suture. Once this was done the clamps were removed and hemostasis was excellent. The warm ischemia time was 34 minutes. Next Jocelyn and Tisseel were applied to the resection beds and both tumors were placed in an endocatch bag. A Andrea King drain was positioned just lateral to the kidney. The robot was u ndocked after confirming hemostasis within the abdomen. The specimens were then extracted from the 12mm port site after extending it. The fascia of the extraction site was then closed with a running #0-vicryl suture. The abdomen was observed again and there was no bleeding from the left kidney or the hilum. We then removed all the ports under direct vision and there was no bleeding from any of the port sites. At this point, all the incisions were thoroughly irrigated. We then closed the skin of each site using a running #4-0 subcuticular Monocryl stitch. The Andrea King drain was secured to the skin using #3-0 Ethilon suture. Local anesthetic was then applied to each incision and Dermabond was then applied and this marked the conclusion of the procedure. The patient was then taken out of the left lateral decubitus position, awakened from anesthesia and transported to the recovery room in stable condition. ESTIMATED BLOOD LOSS: 475 mL INTRAOPERATIVE COMPLICATIONS: None SPECIMENS: Left renal neoplasms WARM ISCHEMIA TIME: 34 minutes NORMAL LEFT RENAL PARENCHYMA SPARED: approximately 90% PLAN: The patient will be admitted to the hospital postoperatively and she will be discharged home once her renal function is stable and she is tolerating a regular diet. JASPREET HUGO MD Dec 24, 2020 10:17
[2020-12-24] MEDS: ceFAZolin SOD 1 GM in D5W MINI-BAG PLUS 50 ML IV SCH (18:19)
[2020-12-24] MEDS: DOCUSATE SODIUM 100MG CAPSULE PO SCH (20:48)
[2020-12-24] MEDS: PERCOCET 5MG/325MG TAB PO PRN (23:50)
[2020-12-25] MEDS: ceFAZolin SOD 1 GM in D5W MINI-BAG PLUS 50 ML IV SCH (01:34)
[2020-12-25 02:00] VITALS: BP 120/69
[2020-12-25 05:00] VITALS: BP 113/60
[2020-12-25] MEDS: PERCOCET 5MG/325MG TAB PO PRN (05:45)
--- NOTE | 2020-12-25 08:09 | IPNPDOC ---
Subjective Review oF Systems Chief Complaint The patient is a 65-year-old female admitted with a reason for visit of Left Renal Mass. Events since Last Encounter No acute events o/n. Good pain control. Had mild nausea but no vomiting. No f/c/ns. Objective Physical Examination General Exam: Alert, Cooperative, No Acute Distress ABDOMEN EXAM: Soft, Tenderness (mild), Other (incisions clean/dry/intact; APARNA w/ serosanguinous output) Skin Exam: Nl turgor and temperature Neuro Exam: Normal Speech Psych Exam: Mental status NL, Mood NL Other physical findings catheter draining pink urine Vital Signs/I&O Vital Signs Date Time Temp Pulse Resp B/P (MAP) Pulse Ox O2 Delivery O2 Flow Rate FiO2 12/25/20 06:15 18 Nasal Cannula 2.0 12/25/20 05:00 98.2 77 113/60 (77) 95 I&O- Last 24 Hours up to 6 AM 12/25/20 05:59 Intake Total 3335 ml Output Total 1130 ml Balance 2205 ml Laboratory Data Labs 24H Laboratory Tests 2 12/24/20 15:44: Nucleated Red Blood Cells % (auto) 0.0, Anion Gap 4L, Glomerular Filtration Rate 40.3L, Calcium Level 8.7L CBC/BMP Laboratory Tests 12/24/20 15:44 Assessment/Plan Date Seen The patient was seen on 12/25/20. Patient Summary This is a 65 y/o F w/ a solitary L kidney, POD1 s/p L robotic partial nephrectomy for 2 renal masses. She is doing well. UOP has been good. APARNA output w/i normal limits. Morning labs are pending. Plan/VTE VTE Prophylaxis Ordered?: Yes VTE Exclusion Mechanical Proph: N/A:VTE Prophy Ordered Plan - d/c Goldsmith - d/c IVF - percocet prn pain - strict I/Os - nephrology consulted - SCDs - incentive spirometry - ambulate - CLD -> ADAT - possible discharge home tomorrow JASPREET HUGO MD Dec 25, 2020 08:09
[2020-12-25 08:15] LABS: HEMATOCRIT 37.7 % (36.0-47.0); HEMOGLOBIN 12.5 g/dl (12.0-15.5); MEAN CORPUSCULAR HEMOGLOBIN 32.2 pg (27.0-33.0); MEAN CORPUSCULAR HGB CONC 33.2 g/dl (32.0-36.5); MEAN CORPUSCULAR VOLUME 97.2 fl (80.0-96.0); PLATELET COUNT, AUTOMATED 252 10^3/uL (150-450); RED BLOOD COUNT 3.88 10^6/uL (4.00-5.40); WHITE BLOOD COUNT 15.6 10^3/uL (4.0-10.0)
[2020-12-25] MEDS: allopurinoL 100 MG TAB PO SCH (08:34)
[2020-12-25] MEDS: DOCUSATE SODIUM 100MG CAPSULE PO SCH ×2 (08:34→20:08)
[2020-12-25] MEDS: PRAVASTATIN 10 MG TAB PO SCH (08:34)
[2020-12-25 08:37] LABS: CALCIUM LEVEL 8.8 MG/DL (8.8-10.2); CREATININE FOR GFR 1.38 MG/DL (0.55-1.30); POTASSIUM SERUM 4.4 MEQ/L (3.5-5.1)
[2020-12-25 10:00] VITALS: BP_SYST 103; BP_SYST 122; BP_DIAS 61; BP_DIAS 79
[2020-12-25] MEDS: ACETAMINOPHEN TAB 650MG DOSE (2X325MG) PO PRN ×2 (10:51→20:09)
[2020-12-25] MEDS: ONDANSETRON 4MG/2ML VIAL IV PRN ×2 (11:02→16:54)
[2020-12-25 14:00] VITALS: BP 123/72
[2020-12-25] MEDS: NS 1,000 ML IV SCH (14:57)
--- NOTE | 2020-12-25 17:07 | CR ---
CONSULTATION DATE: 12/25/2020 REQUESTING PHYSICIAN: Everardo Allison M.D. REASON FOR CONSULTATION: Partial nephrectomy in this patient with solitary functioning left kidney. HISTORY OF PRESENT ILLNESS: Thais Hu is well known to me. She is a 65-year-old female with a past medical history of hypertension, dyslipidemia and history of renal cell carcinoma, status post right nephrectomy in 2015. Subsequent imaging in 2017 revealed a right adrenal lesion and the patient was subsequently status post right adrenalectomy. She also has a history of CKD stage 2 secondary to solitary functioning kidney with a baseline creatinine of 1 and a history of hypertension, dyslipidemia and other comorbid conditions mentioned below. The patient recently had a surveillance CT scan through urology that showed two new masses in her solitary functioning left kidney. She is status post partial left nephrectomy yesterday with Dr. Allison. Ischemic time to the kidney was around 30-35 minutes and nephrology evaluation was requested in view of partial nephrectomy in this patient with solitary kidney. PAST MEDICAL HISTORY: 1. Renal cell carcinoma. 2. Osteoarthritis. 3. Allergies. 4. Dyslipidemia. 5. Hypertension. 6. GERD. 7. Lung nodules. 8. Gout. PAST SURGICAL HISTORY: 1. Right nephrectomy in January,. 2. Right adrenalectomy in January,. 3. Left partial nephrectomy done yesterday. 4. Tubal ligation. 5. Knee surgery x2. 6. Elbow surgery x2. 7. Right knee replacement. 8. Tendon repair. 9. . ALLERGIES: CLAMS, CRESTOR, ZOCOR, SULFA. HOME MEDICATIONS: 1. Allopurinol 100 mg p.o. daily. 2. Cetirizine 10 mg p.r.n. 3. CoQ10 one tablet daily. 4. Lisinopril 5 mg daily. 5. Pravastatin 20 mg every day. 6. Vitamin B every day. FAMILY HISTORY: Significant for heart disease and diabetes in her father. There is no family history of renal failure. SOCIAL HISTORY: She is , lives with spouse, is an regional administrative assistant and an ex-smoker, no alcohol or drug use. REVIEW OF SYSTEMS: Constitutional: Denies constitutional symptoms, no fevers or chills. Eyes: Denies visual changes or tearing. HEENT: Reports a lump on the left forehead, recently evaluated by primary care physician. ENT: Denies ear symptoms, nasal symptoms, or mouth or throat symptoms. Cardiac: Denies chest pain, palpitations or edema. Respiratory: Denies cough or shortness of breath. Gastrointestinal: Reports incisional tenderness and presence or an abdominal drain. Denies any diarrhea. She is a little nauseous today. Genitourinary: Reports right nephrectomy, right adrenalectomy and hematuria after partial left nephrectomy yesterday. Musculoskeletal: Reports gout and right knee replacement. Skin: Denies any new rashes or ulcers. Neurologic: Denies neurologic symptoms. Psychiatric: Denies psychiatric symptoms. Endocrine: Denies diabetes or thyroid problems. Hematologic: Denies anemia and bleeding or bruising tendencies. PHYSICAL EXAMINATION: Vital signs: Temperature 97.9, pulse 88, respiratory rate 16, blood pressure 103/61, saturating 91-95% on room air. Intake yesterday was 2.1 liters. Urine output yesterday was 500 mL Weight in the bed scale today is not recorded. General: Patient is seen awake, lying in bed, oriented x3, interactive, conversational, in no distress. HEENT: Extraocular muscles are intact. Tongue is moist. Neck: Supple. Jugular veins are not elevated. Heart sounds are regular, S-1, S-2. No murmur. Lungs: Clear to auscultation bilaterally. No crackles, rales or rhonchus. Abdomen: Shows some incisions on the left side (laparoscopic). There is a APARNA drain present. Genitourinary: There is no suprapubic bladder fullness. Extremities: Negative for edema, clubbing or cyanosis. Neurologic: She is oriented x3, interactive and conversational. Skin: Warm and dry, normal turgor. Output for the drain is serosanguineous. LABORATORY DATA: White count 15.6, hemoglobin 12.5, platelets 252. Sodium 138, potassium 4.4, bicarbonate 26, BUN 18, creatinine 1.3. INPATIENT MEDICATIONS: 1. She received Ancef perioperatively. 2. She received lactated Ringer's at 100 mL an hour. 3. She received Tylenol p.r.n. 4. Allopurinol 100 mg p.o. daily. 5. Docusate 100 mg p.o. b.i.d. 6. Morphine p.r.n. 7. Zofran p.r.n. 8. Oxycodone p.r.n. 9. Pravastatin 10 mg p.o. daily. PROBLEMS: 1. Acute kidney injury in this patient with solitary functioning left kidney and history of right nephrectomy in 2016 because of renal cell carcinoma and now status post partial left nephrectomy because of recurrent masses in the kidney. Ischemic time to the kidney was reportedly around 34 minutes. Her last outpatient labs showed creatinine of around 1 and currently with creatinine 1.3. About 85% of the kidney was spared by the surgery. Her electrolytes and volume status are acceptable. She is tolerating oral intake. I will continue normal saline at 50cc/hr for 1 more day. She is hemodynamically stable. She is going to stay in the hospital for another at least 24 hours for further monitoring of urine output and renal function prior to probable discharge. 2. Hypertension. She previously took lisinopril at home. We will keep her off all antihypertensive agents and I would keep her off of JOHNNY or ARB or NSAIDs going forward. 3. Renal cell carcinoma, recurrent. First diagnosed in 2016 and then with right adrenalectomy in 2017 and now with two new enhancing lesions on the left kidney, status post recent partial left nephrectomy. Further surveillance and management is as per urology. [facility]
[2020-12-25] MEDS ORDERED: PERCOCET PO (17:28)
[2020-12-25] MEDS ORDERED: COLA100C5 PO (17:28)
[2020-12-25 19:52] VITALS: BP 121/76
[2020-12-25] MEDS ORDERED: CETIRIZINE (ZyrTEC) 10 MG TAB PO ONE (21:35)
[2020-12-26 05:41] VITALS: BP 122/75
[2020-12-26] MEDS: ACETAMINOPHEN TAB 650MG DOSE (2X325MG) PO PRN ×2 (05:52→13:01)
[2020-12-26 06:29] LABS: HEMATOCRIT 36.7 % (36.0-47.0); MEAN CORPUSCULAR HEMOGLOBIN 31.5 pg (27.0-33.0); MEAN CORPUSCULAR HGB CONC 32.7 g/dl (32.0-36.5); MEAN CORPUSCULAR VOLUME 96.3 fl (80.0-96.0); PLATELET COUNT, AUTOMATED 216 10^3/uL (150-450); RED BLOOD COUNT 3.81 10^6/uL (4.00-5.40); WHITE BLOOD COUNT 14.5 10^3/uL (4.0-10.0)
[2020-12-26 07:00] LABS: CALCIUM LEVEL 8.6 MG/DL (8.8-10.2); CREATININE FOR GFR 1.39 MG/DL (0.55-1.30); GLOMERULAR FILTRATION RATE 40.6 (>45); POTASSIUM SERUM 4.1 MEQ/L (3.5-5.1)
[2020-12-26] MEDS: allopurinoL 100 MG TAB PO SCH (08:44)
[2020-12-26] MEDS: DOCUSATE SODIUM 100MG CAPSULE PO SCH (08:44)
[2020-12-26] MEDS: PRAVASTATIN 10 MG TAB PO SCH (08:44)
[2020-12-26] MEDS: NS 1,000 ML IV SCH (09:55)
[2020-12-26 10:00] VITALS: BP 122/75
[2020-12-26 10:04] LABS: CREATININE BF 1.4 MG/DL (NOT ESTABLISHED); SOURCE, BODY FLUID CREATININE OTHER
--- NOTE | 2020-12-26 10:39 | IPNPDOC ---
Subjective Review oF Systems Chief Complaint The patient is a 65-year-old female admitted with a reason for visit of Left Renal Mass and POD2 s/p left partial nephrectomy. Events since Last Encounter s/p left partial nephrectomy in a solitary kidney No acute events o/n. Good pain control. Tolerating diet. No flatus or BM. No N/V APARNA fluid 60 cc in last 10 hours, Cr 1.4 Objective Physical Examination General Exam: Alert, Cooperative, No Acute Distress ABDOMEN EXAM: Soft, Tenderness (mild), Other (incisions clean/dry/intact; APARNA w/ serosanguinous output) Skin Exam: Nl turgor and temperature Neuro Exam: Normal Speech Psych Exam: Mental status NL, Mood NL Vital Signs/I&O Vital Signs Date Time Temp Pulse Resp B/P (MAP) Pulse Ox O2 Delivery O2 Flow Rate FiO2 12/26/20 05:41 99.7 94 18 122/75 (91) 90 Room Air 12/25/20 06:15 2.0 I&O- Last 24 Hours up to 6 AM 12/26/20 06:00 Intake Total 1316 ml Output Total 3390 ml Balance -2074 ml Laboratory Data Labs 24H Laboratory Tests 2 12/26/20 06:17: Nucleated Red Blood Cells % (auto) 0.0, Anion Gap 5L, Glomerular Filtration Rate 40.6L, Calcium Level 8.6L 12/26/20 09:37: Body Fluid Creatinine Source OTHER, Body Fluid Creatinine 1.4 CBC/BMP Laboratory Tests 12/26/20 06:17 Assessment/Plan Date Seen The patient was seen on 12/26/20. Aparna was removed d/c IV and d/c home f/u as per Dr. Allison-rx written Plan/VTE VTE Prophylaxis Ordered?: Yes VTE Exclusion Mechanical Proph: N/A:VTE Prophy Ordered LITTLE PÉREZ M.D. Dec 26, 2020 10:34
--- NOTE | 2020-12-26 15:58 | IPN ---
PROGRESS NOTE DATE: 12/26/2020 SUBJECTIVE: Mrs. Hu is seen this morning on her bedside. She is feeling well and reports that Dr. Allison removed the drain from her left lower abdomen. She had a partial nephrectomy done. She has prior history of right nephrectomy due to renal cell carcinoma and now she had malignant appearing mass in her left kidney, due to which she had partial nephrectomy. Her kidney function has remained stable with serum creatinine between 1.38 and 1.40. She has good urine output and denies any dyspnea or chest pain. PHYSICAL EXAMINATION: VITALS: Temperature 99.5 degrees Fahrenheit, heart rate 96 per minute, respiratory rate 16 per minute, blood pressure 122/75 mmHg and oxygen saturation 94% on room air. HEENT: Head is atraumatic. Neck is supple and without JVD or thyroid enlargement. HEART: Heart sounds are regular. LUNGS: Chest: Clear to auscultation. ABDOMEN: Soft and nontender. Bowel sounds are normal. EXTREMITIES: Without any cyanosis or clubbing. NEUROLOGIC: She is awake, alert and oriented x3. PROBLEMS: 1. Recurrent renal cell carcinoma: She had prior right nephrectomy and now she had partial nephrectomy on the left side due to recurrence of cancer. She did well and will follow-up with Dr. Allison as an outpatient. Her kidney function has remained stable. 2. Chronic kidney disease: She has known history of prior right nephrectomy, however, kidney function has remained stable with serum creatinine of about 1.4 mg/dL even after partial left nephrectomy. She will follow-up in our clinic as an outpatient. 3. Gout: She does have history of gout and remains on Allopurinol 100 mg daily. DISPOSITION: From a renal standpoint, patient can be discharged to home and follow-up in the outpatient clinic.
--- NOTE | 2020-12-27 12:54 | DSES ---
DISCHARGE SUMMARY DATE OF ADMISSION: 12/24/2020 DATE OF DISCHARGE: 12/26/2020 ADMISSION DIAGNOSES: 1. Left renal neoplasms. 2. History of right renal cell carcinoma. 3. Chronic kidney disease. DISCHARGE DIAGNOSES: 1. Left renal cell carcinoma. 2. History of right renal cell carcinoma. 4. Chronic kidney disease. ADMITTING PHYSICIAN: Everardo Allison M.D. DISCHARGING PHYSICIAN: Dameon Perry M.D. PROCEDURES PERFORMED: Left robotic-assisted laparoscopic partial nephrectomy on December 24, 2020. HISTORY OF PRESENT ILLNESS: This is a 65-year-old female with a history of right-sided renal cell carcinoma status post open radical nephrectomy a few years ago. This was followed by a recurrence of renal cell carcinoma in her right adrenal gland and for that she underwent a robotic adrenalectomy a few years ago. On surveillance imaging, she was found to have two enhancing neoplasms on her left kidney. She underwent the above-listed procedure for treatment and was admitted postoperatively. HOSPITALIZATION COURSE: The patient's postoperative course was, for the most part, unremarkable. Her labs during her hospital stay were within acceptable limits. Specifically, her serum hemoglobin remained stable at around 12.5 on postoperative day one and postoperative day two. Her serum creatinine remained stable at 1.4 postoperatively. By the end of postoperative day one and on postoperative day two, she had excellent urine output. She had normal output from her Andrea-King drain. She was ambulating well by the end of postoperative day one and throughout postoperative day two. Her Goldsmith catheter was removed on postoperative day one and she voided without any difficulty. Her diet was advanced. She was able to tolerate a regular diet without nausea and vomiting. Her pain was very well controlled with oral pain medications. By postoperative day two, she was deemed ready for discharge home. She will follow up in urology clinic in approximately one week for a postoperative visit and to discuss her pathology results. She will also have followup with the nephrology service, given her history of chronic kidney disease. [facility]
== END 2020-12-26 13:47 | disposition home or self-care (01) | DRG 657 ==
LOC: M OR 07:20 → M MSPAV 16:50 → UNDODISIN 12-26 13:47
PROVIDERS: ADMIT Urology; ATTEND Urology
PROC: 8E0W4CZ Robotic Assisted Procedure of Trunk Region, Percutaneous Endoscopic Approach (ICD-10-PCS; 2020-12-24)
PROC: 0TB14ZZ Excision of Left Kidney, Percutaneous Endoscopic Approach (ICD-10-PCS; principal; 2020-12-24 09:30)
DX: C64.2 Malignant neoplasm of left kidney, except renal pelvis (principal); N17.9 Acute kidney failure, unspecified; E78.5 Hyperlipidemia, unspecified; I12.9 Hypertensive chronic kidney disease with stage 1 through stage 4 chronic kidney disease, or unspecified chronic kidney disease; N18.2 Chronic kidney disease, stage 2 (mild); K21.9 Gastro-esophageal reflux disease without esophagitis; M10.9 Gout, unspecified; M19.90 Unspecified osteoarthritis, unspecified site; Z96.651 Presence of right artificial knee joint; Z88.2 Allergy status to sulfonamides; Z88.8 Allergy status to other drugs, medicaments and biological substances; Z91.013 Allergy to seafood; Z85.528 Personal history of other malignant neoplasm of kidney; Z90.5 Acquired absence of kidney; Z79.899 Other long term (current) drug therapy; Z87.891 Personal history of nicotine dependence

== ENCOUNTER → 2021-01-05 | Outpatient (REF) | payer OTHER ==
[~2021-01-05] MED LIST changes: -BUPIVACAINE HCL 0.25% 30ML VIAL As Ordered ONE; +COLA100C5 PO; -LIDOCAINE 1% MDV 20ML VIAL SQ PRN; -LIDOCAINE 1% SDV 30ML VIAL As Ordered ONE; -LR 1,000 ML IV ONE; +PERCOCET PO; -ceFAZolin SOD 2 GM in IV 1 EA IV ONE
[2021-01-05 17:35] LABS: HEMATOCRIT 41.4 % (36.0-47.0); HEMOGLOBIN 13.4 g/dl (12.0-15.5); MEAN CORPUSCULAR HEMOGLOBIN 31.5 pg (27.0-33.0); MEAN CORPUSCULAR HGB CONC 32.4 g/dl (32.0-36.5); MEAN CORPUSCULAR VOLUME 97.2 fl (80.0-96.0); PLATELET COUNT, AUTOMATED 478 10^3/uL (150-450); RED BLOOD COUNT 4.26 10^6/uL (4.00-5.40); WHITE BLOOD COUNT 10.5 10^3/uL (4.0-10.0)
[2021-01-05 17:59] LABS: CALCIUM LEVEL 10.1 MG/DL (8.8-10.2); CREATININE FOR GFR 1.28 MG/DL (0.55-1.30); GLOMERULAR FILTRATION RATE 44.7 (>45); POTASSIUM SERUM 4.6 MEQ/L (3.5-5.1)
== END ==
LOC: M SFHCADAM 15:18 → M LABSMT 15:18
PROVIDERS: ATTEND Urology
DX: C64.2 Malignant neoplasm of left kidney, except renal pelvis (principal)

== ENCOUNTER → 2021-01-11 | Outpatient (REF) | payer OTHER | LOC: M LAB REF 13:04 | PROVIDERS: ATTEND Internal Medicine Nephrology | DX: E83.42 Hypomagnesemia (principal) ==

== ENCOUNTER → 2021-03-22 | Outpatient (CLI) | payer OTHER | LOC: M LABSMTC 09:18 | PROVIDERS: ATTEND Anesthesiology | DX: Z01.812 Encounter for preprocedural laboratory examination (principal); Z20.822 Contact with and (suspected) exposure to COVID-19 ==

== ENCOUNTER 2021-03-26 10:39 | Day surgery (SDC) | payer OTHER ==
[~2021-03-26] VITALS: Ht 167.6 cm; Wt 80.7 kg
[2021-03-26] VITALS (7 sets, daily range): BP systolic 124–138; BP diastolic 74–79
[~2021-03-26 10:39] MED LIST changes: +CelecoXIB (CeleBREX) 100 MG CAP PO ONE; +LR 1,000 ML IV ONE
[2021-03-26] MEDS ORDERED: AMOX875T2 (11:08)
[2021-03-26] MEDS ORDERED: LIDOCAINE 1% SDV 30ML VIAL As Ordered ONE (11:59)
[2021-03-26] MEDS ORDERED: BUPIVACAINE HCL 0.25% 30ML VIAL As Ordered ONE (11:59)
[2021-03-26] MEDS ORDERED: fentaNYL 100 MCG/2 ML INJECTION As Ordered ONE (12:01)
[2021-03-26] MEDS ORDERED: ONDANSETRON 4MG/2ML VIAL As Ordered ONE (12:01)
[2021-03-26] MEDS ORDERED: MIDAZOLAM INJ 2MG/2ML VIAL (J2250 PER 1MG) As Ordered ONE (12:01)
[2021-03-26] MEDS ORDERED: METOCLOPRAMIDE INJ 10MG/2ML VIAL (J2765 PER 1) As Ordered ONE (12:01)
[2021-03-26] MEDS ORDERED: propofoL 200 MG/20 ML VIAL As Ordered ONE (12:01)
[2021-03-26] MEDS ORDERED: LIDOCAINE 2% 100MG/5ML SDV (FOR ANES.) As Ordered ONE (12:01)
[2021-03-26] MEDS ORDERED: ceFAZolin 2 GM/D5W 50 ML IV BAG (J0690 PER 500MG) As Ordered ONE (12:08)
[2021-03-26] MEDS ORDERED: ceFAZolin SOD 2 GM in IV 1 EA IV ONE (12:20)
[2021-03-26] MEDS ORDERED: HYDROmorphone HCL 2MG/ML 1ML VIAL As Ordered ONE (13:18)
[2021-03-26] MEDS ORDERED: ePHEDrine SULFATE 25 MG/5 ML(5MG/ML) SYRINGE As Ordered ONE (13:58)
[2021-03-26] MEDS ORDERED: ACETAMINOPHEN 1000MG 100ML IV BTL (OFIRMEV) (J0131 PER 10MG) As Ordered ONE (13:58)
[2021-03-26] MEDS ORDERED: PHENYLephrine 500MCG 5ML (100MCG/ML) SYRINGE As Ordered ONE (13:58)
[2021-03-26] MEDS ORDERED: MORPHINE 2 MG/ML 1ML VIAL (J2270) IV PRN (14:50)
[2021-03-26] MEDS ORDERED: PERCOCET 5MG/325MG TAB PO PRN (14:50)
[2021-03-26] MEDS ORDERED: ONDANSETRON 4MG/2ML VIAL IV PRN ×2 (14:50→15:10)
[2021-03-26] MEDS ORDERED: LR 1,000 ML IV SCH (15:10)
[2021-03-26] MEDS ORDERED: oxyCODONE 5MG TAB PO PRN (15:10)
[2021-03-26] MEDS: NS 1,000 ML IV SCH (15:13)
[2021-03-26] MEDS: allopurinoL 100 MG TAB PO SCH (18:08)
[2021-03-26] MEDS: ACETAMINOPHEN 650MG ER TAB (TYLENOL ARTHRITIS) PO SCH (20:48)
[2021-03-26] MEDS: ceFAZolin SOD 1 GM in D5W MINI-BAG PLUS 50 ML IV SCH (20:48)
[2021-03-26] MEDS ORDERED: PRAVASTATIN 10 MG TAB PO SCH (21:00)
[2021-03-27 02:00] VITALS: BP 132/76
[2021-03-27] MEDS: NS 1,000 ML IV SCH (04:05)
[2021-03-27] MEDS: ceFAZolin SOD 1 GM in D5W MINI-BAG PLUS 50 ML IV SCH (04:05)
[2021-03-27 04:53] VITALS: BP 122/72
[2021-03-27 05:14] LABS: BASO # 0.1 10^3/uL (0.0-0.2); BASO % 0.5 % (0.0-1.0); EOS # 0.2 10^3/uL (0.0-0.5); EOS % 1.2 % (0.0-3.0); HEMATOCRIT 37.3 % (36.0-47.0); HEMOGLOBIN 11.9 g/dl (12.0-15.5); LYMPH # 2.1 10^3/uL (1.5-5.0); LYMPH % 17.6 % (24.0-44.0); MEAN CORPUSCULAR HEMOGLOBIN 30.4 pg (27.0-33.0); MEAN CORPUSCULAR HGB CONC 31.9 g/dl (32.0-36.5); MEAN CORPUSCULAR VOLUME 95.4 fl (80.0-96.0); MONO # 1.2 10^3/uL (0.0-0.8); NEUTROPHILS # 8.5 10^3/uL (1.5-8.5); NEUTROPHILS % 70.4 % (36.0-66.0); PLATELET COUNT, AUTOMATED 277 10^3/uL (150-450); RED BLOOD COUNT 3.91 10^6/uL (4.00-5.40); WHITE BLOOD COUNT 12.1 10^3/uL (4.0-10.0)
[2021-03-27 05:37] LABS: CALCIUM LEVEL 8.6 MG/DL (8.8-10.2); CREATININE FOR GFR 1.08 MG/DL (0.55-1.30); GLOMERULAR FILTRATION RATE 54.4 (>45); POTASSIUM SERUM 3.6 MEQ/L (3.5-5.1)
[2021-03-27] MEDS: ACETAMINOPHEN 650MG ER TAB (TYLENOL ARTHRITIS) PO SCH (06:10)
[2021-03-27] MEDS ORDERED: ISOVUE-370 76% 100ML VIAL As Ordered ONE (06:49)
[2021-03-27] MEDS: allopurinoL 100 MG TAB PO SCH (08:01)
[2021-03-27] MEDS ORDERED: BACITRACIN OINTMENT 30GM TUBE TOP SCH (09:00)
[2021-03-27] MEDS ORDERED: ACET1TAB16 PO (11:46)
[2021-03-27] MEDS ORDERED: CEPH500C PO (11:46)
[2021-04-14] MEDS ORDERED: INLY5TAB PO (17:54)
[2021-04-22] MEDS ORDERED: OXYC-517 PO (10:21)
[2021-04-28] MEDS ORDERED: GABA-282 PO (14:35)
== END 2021-03-27 12:30 | disposition home or self-care (01) ==
LOC: M SDC 10:39 → M MSPAV 15:47 → M SDC 03-27 12:30
PROVIDERS: ATTEND Surgery
DX: C79.2 Secondary malignant neoplasm of skin (principal); Z85.528 Personal history of other malignant neoplasm of kidney; Z90.5 Acquired absence of kidney; Z86.39 Personal history of other endocrine, nutritional and metabolic disease; L76.21 Postprocedural hemorrhage of skin and subcutaneous tissue following a dermatologic procedure; E78.5 Hyperlipidemia, unspecified; N18.31 Chronic kidney disease, stage 3a; I12.9 Hypertensive chronic kidney disease with stage 1 through stage 4 chronic kidney disease, or unspecified chronic kidney disease; Z85.858 Personal history of malignant neoplasm of other endocrine glands; M10.9 Gout, unspecified; Q78.0 Osteogenesis imperfecta; M19.90 Unspecified osteoarthritis, unspecified site; Z91.013 Allergy to seafood; Z88.2 Allergy status to sulfonamides; Z88.8 Allergy status to other drugs, medicaments and biological substances; Z79.899 Other long term (current) drug therapy; Z87.891 Personal history of nicotine dependence
CPT/HCPCS: 11106; 36415; 70487; 80048; 85025; 88304; 88341; 88342; 96374; 96376; J0131; J0690; J1170; J2250; J2370; J2405; J2765; J3010; Q9967

== ENCOUNTER → 2021-03-31 | Outpatient (CLI) | payer OTHER ==
[~2021-03-31] MED LIST changes: +ACET1TAB16 PO; +AMOX875T2; +CEPH500C PO; -CelecoXIB (CeleBREX) 100 MG CAP PO ONE; -LR 1,000 ML IV ONE
== END ==
LOC: M ONCR 12:54
PROVIDERS: ATTEND General Practice
DX: C79.31 Secondary malignant neoplasm of brain (principal); C64.1 Malignant neoplasm of right kidney, except renal pelvis; Z88.2 Allergy status to sulfonamides; Z88.1 Allergy status to other antibiotic agents; Z91.013 Allergy to seafood; Z79.899 Other long term (current) drug therapy; Z87.891 Personal history of nicotine dependence

== ENCOUNTER 2021-04-01 10:10 | Outpatient (RCR) | payer OTHER | END 2021-04-05 | LOC: M ONCR 10:10 | PROVIDERS: ATTEND General Practice | DX: C79.31 Secondary malignant neoplasm of brain (principal); C64.9 Malignant neoplasm of unspecified kidney, except renal pelvis ==

== ENCOUNTER → 2021-04-06 | Outpatient (CLI) | payer OTHER | LOC: M PLARAD 12:44 | PROVIDERS: ATTEND Specialist | DX: C54.1 Malignant neoplasm of endometrium (principal) | CPT/HCPCS: 78815; A9552 ==

== ENCOUNTER → 2021-05-03 | Outpatient (RCR) | payer OTHER ==
[~2021-05-03] MED LIST changes: +GABA-282 PO; +INLY5TAB PO
== END ==
LOC: M ONCR 04-07 11:07
PROVIDERS: ATTEND General Practice
DX: C79.31 Secondary malignant neoplasm of brain (principal)

== ENCOUNTER → 2021-05-20 | Outpatient (CLI) | payer OTHER ==
[~2021-05-20] MED LIST changes: +ACET650T15 PO; +DEXA2TA PO; +MECL-86 PO; +PRAV20TA2 PO
== END ==
LOC: M ONCR 09:13
PROVIDERS: ATTEND General Practice
DX: C79.31 Secondary malignant neoplasm of brain (principal); G52.8 Disorders of other specified cranial nerves; R26.81 Unsteadiness on feet; Z92.3 Personal history of irradiation

== ENCOUNTER 2021-05-22 11:11 | Emergency (ER) | payer OTHER ==
[~2021-05-22] VITALS: Ht 167.6 cm; Wt 70.0 kg
[~2021-05-22 11:11] MED LIST changes: -ACET650T15 PO; -PRAV20TA2 PO
[2021-05-22 12:40] LABS: BASO # 0.1 10^3/uL (0.0-0.2); BASO % 0.7 % (0.0-1.0); EOS # 0.1 10^3/uL (0.0-0.5); EOS % 0.6 % (0.0-3.0); HEMATOCRIT 41.7 % (36.0-47.0); HEMOGLOBIN 13.9 g/dl (12.0-15.5); LYMPH # 1.4 10^3/uL (1.5-5.0); LYMPH % 11.8 % (24.0-44.0); MEAN CORPUSCULAR HGB CONC 33.3 g/dl (32.0-36.5); MEAN CORPUSCULAR VOLUME 89.9 fl (80.0-96.0); MONO # 1.5 10^3/uL (0.0-0.8); MONO % 11.9 % (2.0-8.0); NEUTROPHILS # 9.1 10^3/uL (1.5-8.5); NEUTROPHILS % 74.8 % (36.0-66.0); PLATELET COUNT, AUTOMATED 396 10^3/uL (150-450); RED BLOOD COUNT 4.64 10^6/uL (4.00-5.40); WHITE BLOOD COUNT 12.2 10^3/uL (4.0-10.0)
[2021-05-22 13:05] LABS: ALBUMIN 2.9 GM/DL (3.2-5.2); BILIRUBIN,DIRECT 0.2 MG/DL (0.0-0.2); BILIRUBIN,TOTAL 0.6 MG/DL (0.2-1.0); CALCIUM LEVEL 9.6 MG/DL (8.8-10.2); CREATININE FOR GFR 1.1 MG/DL (0.55-1.30); GLOMERULAR FILTRATION RATE 53.2 (>45); POTASSIUM SERUM 4.1 MEQ/L (3.5-5.1)
[2021-05-22] MEDS: D5W/LR 500 ML IV SCH ×3 (13:30→17:15)
[2021-05-22 13:46] LABS: RSV AMPLIFICATION NEGATIVE (NEGATIVE)
[2021-05-22] MEDS ORDERED: MECL-86 PO (13:50)
[2021-05-22] MEDS ORDERED: ACET650T15 PO (13:50)
[2021-05-22] MEDS ORDERED: INLY5TAB PO (13:50)
[2021-05-22] MEDS ORDERED: VANCOMYCIN HCL 1,000 MG, VIAL MATE ADAPTER 1 EACH in NS 250 ML IV ONE (14:00)
[2021-05-22] MEDS ORDERED: CEFEPIME HCL 2 GM in D5W MINI-BAG PLUS 50 ML IV ONE (14:00)
[2021-05-22] MEDS ORDERED: PRAV20TA2 PO (14:05)
[2021-05-22] MEDS ORDERED: HOME MED LIST COMPLETE! XX SCH (14:10)
[2021-05-22] MEDS ORDERED: diphenhydrAMINE 50MG/ML VIAL (J1200) IV STA (14:32)
[2021-05-22] MEDS ORDERED: FAMOTIDINE INJ 20MG/2ML VIAL (S0028 PER 1) IVP ONE (14:35)
[2021-05-22] MEDS ORDERED: methylPREDNISolone 125MG 2ML VIAL IV ONE (14:35)
[2021-05-22] MEDS ORDERED: ACETAMINOPHEN 325 MG TAB PO ONE (17:05)
[2021-05-22 18:16] VITALS: BP 140/72
== END 2021-05-22 18:18 | disposition short-term general hospital (02) ==
LOC: M ED 11:11
DX: G06.0 Intracranial abscess and granuloma (principal); G93.9 Disorder of brain, unspecified; M86.9 Osteomyelitis, unspecified; C64.9 Malignant neoplasm of unspecified kidney, except renal pelvis; Z88.2 Allergy status to sulfonamides; Z88.8 Allergy status to other drugs, medicaments and biological substances; Z79.899 Other long term (current) drug therapy
CPT/HCPCS: 70450; 71045; 80047; 80048; 80076; 82140; 83605; 85025; 87040; 87070; 87077; 87186; 87205; 87631; 93005; 93041; 94760; 96361; 96365; 96375; 99285; J0692; J3370